=== PATIENT | female | born 1975 | race Caucasian/White ===

== ENCOUNTER 2020-01-07 20:16 | Emergency (ER) | payer MEDICARE, OTHER ==
[2020-01-07 20:24] VITALS: TEMP 98.3
[2020-01-07] MEDS ORDERED: SULFAMETH-TMP DS STARTER PACK 2 TAB BTL PO STA (20:50)
[2020-01-07] MEDS ORDERED: IBUPROFEN 600 MG STARTER PACK 4 TAB BTL PO STA (20:50)
[2020-01-07] MEDS ORDERED: LIDOCAINE 1% INJ 10MG/ML (20 ML MDV) SQ ONE (20:50)
[2020-01-07] MEDS ORDERED: ACET/COD 300 MG/30 MG STARTER PACK 6 TAB BTL PO STA (20:50)
--- NOTE | 2020-01-07 21:09 | ED ---
Skin/Abscess/FB HPI - General Chief complaint: Skin/Abscess/Foreign Body Stated complaint: Abscess Time Seen by Provider: 01/07/20 20:34 Source: patient Mode of arrival: ambulatory Limitations: no limitations - History of Present Illness Initial comments: 44-year-old female patient presents to the emergency department today for evaluation of possible abscess to the right upper thigh. Patient states that the area had become red, swollen, painful today. States it feels similar to when she had an abscess in the past. She denies any fever or chills. Denies any drainage from the site. She denies known history of MRSA. Patient denies any recent rash, cough, shortness of breath, chest pain, abdominal pain, nausea, vomiting, diarrhea, constipation, back pain, numbness, tingling, dizziness, weakness, hematuria, dysuria, urinary urgency, urinary frequency, headache, visual changes, or any other complaints. - Related Data Home Medications Medication Instructions Recorded Confirmed ARIPiprazole [Abilify] 15 mg PO DAILY 11/29/17 11/29/17 Citalopram Hydrobromide [CeleXA] 20 mg PO DAILY 11/29/17 11/29/17 Lurasidone [Latuda] 40 mg PO HS 11/29/17 11/29/17 clonazePAM [KlonoPIN] 1 mg PO QID 11/29/17 11/29/17 Previous Rx's Medication Instructions Recorded Ibuprofen [Motrin] 600 mg PO Q8HR PRN #30 tab 01/07/20 Sulfamethoxazole/Trimethoprim 1 each PO BID #20 tablet 01/07/20 [Bactrim DS 800-160 mg] Allergies Allergy/AdvReac Type Severity Reaction Status Date / Time No Known Allergies Allergy Verified 01/07/20 20:24 Review of Systems ROS Statement: Those systems with pertinent positive or pertinent negative responses have been documented in the HPI. ROS Other: All systems not noted in ROS Statement are negative. Past Medical History Past Medical History: No Reported History History of Any Multi-Drug Resistant Organisms: None Reported Past Surgical History: Section, Hysterectomy Additional Past Surgical History / Comment(s): Fatty tumor removal Past Psychological History: Anxiety, Bipolar, Depression Smoking Status: Current every day smoker Past Alcohol Use History: None Reported Past Drug Use History: None Reported General Exam Limitations: no limitations General appearance: alert, in no apparent distress, other (This is a well- developed, well-nourished adult female patient in no acute distress. Vital signs upon presentation are temperature 98.3F, pulse 78, respirations 18, blood pressure 162/90, pulse ox 100% on room air.) Eye exam: Present: normal appearance, PERRL, EOMI. Absent: scleral icterus, conjunctival injection, periorbital swelling ENT exam: Present: normal exam, normal oropharynx, mucous membranes moist Respiratory exam: Present: normal lung sounds bilaterally. Absent: respiratory distress, wheezes, rales, rhonchi, stridor Cardiovascular Exam: Present: regular rate, normal rhythm, normal heart sounds. Absent: systolic murmur, diastolic murmur, rubs, gallop, clicks Extremities exam: Present: full ROM, normal capillary refill, other (There is 2cm abscess to the right medial upper thigh. No surrounding erythema. No drainage. No induration. Abscess is fluctuant. ). Absent: normal inspection, tenderness, pedal edema, joint swelling, calf tenderness Neurological exam: Present: alert, oriented X3, CN II-XII intact Psychiatric exam: Present: normal affect, normal mood Skin exam: Present: warm, dry, intact, normal color. Absent: rash Course Vital Signs 01/07/20 01/07/20 01/07/20 20:21 21:53 22:00 Temperature 98.3 F 98.3 F Pulse Rate 78 87 74 Respiratory 18 20 18 Rate Blood Pressure 162/90 134/93 134/93 O2 Sat by Pulse 100 97 100 Oximetry Procedures - Incision & Drainage Consent Obtained: verbal consent Indication: Abscess Site: lower extremity Size (cm): 2 Anesthetic Used: lidocaine 1% Amount (mLs): 10 I&D Cleaning Method: Betadine Scalpel Used: #11 Needle Aspiration Performed?: No Irrigation Performed?: No I&D Drainage Obtained: Pus, Blood Culture Obtained?: Yes Patient Tolerated Procedure: well, no complications Medical Decision Making - Medical Decision Making 44-year-old female patient presented to the emergency department today for evaluation of abscess to the right upper inner thigh. Physical examination did reveal 2 cm abscess no surrounding erythema. Area was fluctuant so I did proceed with incision and drainage. There was output of pus and blood. A culture was obtained. She was started on Bactrim. She'll be discharged with instructions to apply warm compresses 20 minutes at a time at least 3-4 times daily. She is instructed to follow-up with her primary care physician for recheck of the area in 1-2 days. Return parameters were discussed in detail. She verbalizes understanding and agrees with this plan. Disposition Clinical Impression: Abscess of right thigh Disposition: HOME SELF-CARE Condition: Good Instructions (If sedation given, give patient instructions): Abscess Incision and Drainage (ED), Abscess (ED) Additional Instructions: Apply warm compresses to the abscess 2-3 times daily for at least 20 minutes, or soak in a hot bathtub for this time. Complete antibiotic prescription in full. Take medication as needed for pain control. Follow-up with your primary care physician for recheck of the wound in 1-2 days. Return to the emergency department immediately for any other new, worsening, or concerning symptoms. Prescriptions: Sulfamethoxazole/Trimethoprim [Bactrim DS 800-160 mg] 1 each PO BID #20 tablet Ibuprofen [Motrin] 600 mg PO Q8HR PRN #30 tab PRN Reason: Pain Is patient prescribed a controlled substance at d/c from ED?: No Referrals: Marlon Almanza MD [Primary Care Provider] - 1-2 days Time of Disposition: 21:49
[2020-01-07 22:00] VITALS: BP 134/93; PULSE 74; RESP 18
== END 2020-01-07 22:00 | disposition home or self-care (01) ==
LOC: EC 20:16
DX: L02.415 Cutaneous abscess of right lower limb (principal); F41.9 Anxiety disorder, unspecified; F32.9 Major depressive disorder, single episode, unspecified; F17.200 Nicotine dependence, unspecified, uncomplicated; Z79.899 Other long term (current) drug therapy
CPT/HCPCS: 87070; 87205; 99283; 10060; J2001

== ENCOUNTER 2021-01-15 22:03 | Emergency (ER) | payer MEDICARE, OTHER ==
[2021-01-15] MEDS ORDERED: SODIUM CHLORIDE 0.9% 1,000 ML IV STA (22:09)
[2021-01-15 22:42] LABS: Basophils # (A) 0.1 k/uL (0-0.2); Basophils % (A) 1 %; Eosinophils # (A) 0.3 k/uL (0-0.7); Eosinophils % (A) 3 %; HCT 42.8 % (34.0-46.0); HGB 13.9 gm/dL (11.4-16.0); Lymphocytes # (A) 3.6 k/uL (1.0-4.8); Lymphocytes % (A) 34 %; MCH 31.4 pg (25.0-35.0); MCHC 32.4 g/dL (31.0-37.0); MCV 96.9 fL (80.0-100.0); Mean Platelet Volume 8.4; Monocytes # (A) 0.6 k/uL (0-1.0); Monocytes % (A) 5 %; Neutrophils # (A) 5.9 k/uL (1.3-7.7); Neutrophils % (A) 55 %; Platelet Count 272 k/uL (150-450); RBC 4.42 m/uL (3.80-5.40); RDW 13.6 % (11.5-15.5); WBC 10.6 k/uL (3.8-10.6)
[2021-01-15 23:00] LABS: ALT 53 U/L (4-34); AST 35 U/L (14-36); African American GFR (CKD) >90 (>60 ml/min/1.73 sqM); Albumin 4.4 g/dL (3.5-5.0); Alkaline Phosphatase 110 U/L (38-126); Amylase 73 U/L (30-110); Anion Gap 9 mmol/L; Blood Urea Nitrogen 13 mg/dL (7-17); Calcium 9.6 mg/dL (8.4-10.2); Carbon Dioxide 28 mmol/L (22-30); Chloride 102 mmol/L (98-107); Creatine Kinase 63 U/L (30-135); Glucose 102 mg/dL (74-99); Lipase 385 U/L (23-300); Non-African American GFR(CKD) >90 (>60 ml/min/1.73 sqM); Potassium 4.3 mmol/L (3.5-5.1); Sodium 139 mmol/L (137-145); Total Bilirubin 0.3 mg/dL (0.2-1.3); Total Protein 7.2 g/dL (6.3-8.2)
--- NOTE | 2021-01-15 23:12 | ED ---
Abdominal Pain HPI - General Chief Complaint: Abdominal Pain Stated Complaint: Pelvic Pain Time Seen by Provider: 01/15/21 22:09 Source: patient, RN notes reviewed, old records reviewed Mode of arrival: ambulatory Limitations: no limitations - History of Present Illness Initial Comments: This is a 45-year-old female she presents today to evaluate for abdominal pain. Patient has had abdominal pain episodic for about a week off worsening. Patient has been treated for urinary tract infection with no help she states that she may have urinary tract infection but has had before this is worse. She has had nausea no vomiting no fevers. No bowel issues MD Complaint: abdominal pain, flank pain (Left-sided) -: week(s) Location: epigastric, suprapubic, bilateral flank Radiation: bilateral flank Migration to: suprapubic Severity: moderate Severity scale (1-10): 6 Quality: stabbing Consistency: constant Improves With: nothing Worsens With: nothing Context: other (none) Associated Symptoms: nausea - Related Data Home Medications Medication Instructions Recorded Confirmed ARIPiprazole [Abilify] 15 mg PO DAILY 11/29/17 11/29/17 Citalopram Hydrobromide [CeleXA] 20 mg PO DAILY 11/29/17 11/29/17 Lurasidone [Latuda] 40 mg PO HS 11/29/17 11/29/17 clonazePAM [KlonoPIN] 1 mg PO QID 11/29/17 11/29/17 Previous Rx's Medication Instructions Recorded Ibuprofen [Motrin] 600 mg PO Q8HR PRN #30 tab 01/07/20 Sulfamethoxazole/Trimethoprim 1 each PO BID #20 tablet 01/07/20 [Bactrim DS 800-160 mg] Cephalexin [Keflex] 500 mg PO Q6H #28 cap 01/17/21 Ibuprofen [Motrin] 600 mg PO Q8HR PRN #30 tab 01/17/21 Ondansetron [Zofran ODT] 4 mg PO Q8HR PRN #10 tab 01/17/21 Allergies Allergy/AdvReac Type Severity Reaction Status Date / Time No Known Allergies Allergy Verified 01/17/21 20:05 Review of Systems ROS Statement: Those systems with pertinent positive or pertinent negative responses have been documented in the HPI. ROS Other: All systems not noted in ROS Statement are negative. Past Medical History Past Medical History: No Reported History History of Any Multi-Drug Resistant Organisms: None Reported Past Surgical History: Section, Hysterectomy Additional Past Surgical History / Comment(s): Fatty tumor removal Past Psychological History: Anxiety, Bipolar, Depression Smoking Status: Current every day smoker Past Alcohol Use History: None Reported Past Drug Use History: None Reported General Exam Limitations: no limitations General appearance: alert, in no apparent distress, anxious Head exam: Present: atraumatic, normocephalic, normal inspection Eye exam: Present: normal appearance, PERRL, EOMI. Absent: scleral icterus, conjunctival injection, periorbital swelling ENT exam: Present: normal exam, mucous membranes moist Neck exam: Present: normal inspection. Absent: tenderness, meningismus, lymphadenopathy Respiratory exam: Present: normal lung sounds bilaterally. Absent: respiratory distress, wheezes, rales, rhonchi, stridor Cardiovascular Exam: Present: normal rhythm, tachycardia, normal heart sounds. Absent: systolic murmur, diastolic murmur, rubs, gallop, clicks GI/Abdominal exam: Present: soft, normal bowel sounds. Absent: distended, tenderness, guarding, rebound, rigid Extremities exam: Present: normal inspection, full ROM, normal capillary refill. Absent: tenderness, pedal edema, joint swelling, calf tenderness Back exam: Present: normal inspection Neurological exam: Present: alert, oriented X3, CN II-XII intact Psychiatric exam: Present: normal affect, normal mood Skin exam: Present: warm, dry, intact, normal color. Absent: rash Course Vital Signs 01/15/21 01/16/21 01/16/21 22:04 00:35 01:26 Temperature 98.1 F 97.9 F Pulse Rate 109 H 87 86 Respiratory 20 20 18 Rate Blood Pressure 134/84 133/99 138/89 O2 Sat by Pulse 96 97 97 Oximetry - Reevaluation(s) Reevaluation #1: Medical record is reviewed Patient symptoms are significantly improved here in the ER Patient informed of results and questions are answered Medical Decision Making - Medical Decision Making Auty 5 female DF for evaluation patient does have a stone, no infection. Patient will be treated for kidney stone can be discharged home - Lab Data Result diagrams: 01/15/21 22:27 01/15/21 22:27 Lab Results 01/15/21 01/15/21 01/15/21 Range/Units 22:27 22:27 22:27 WBC 10.6 (3.8-10.6) k/uL RBC 4.42 (3.80-5.40) m/uL Hgb 13.9 (11.4-16.0) gm/dL Hct 42.8 (34.0-46.0) % MCV 96.9 (80.0-100.0) fL MCH 31.4 (25.0-35.0) pg MCHC 32.4 (31.0-37.0) g/dL RDW 13.6 (11.5-15.5) % Plt Count 272 (150-450) k/uL MPV 8.4 Neutrophils % 55 % Lymphocytes % 34 % Monocytes % 5 % Eosinophils % 3 % Basophils % 1 % Neutrophils # 5.9 (1.3-7.7) k/uL Lymphocytes # 3.6 (1.0-4.8) k/uL Monocytes # 0.6 (0-1.0) k/uL Eosinophils # 0.3 (0-0.7) k/uL Basophils # 0.1 (0-0.2) k/uL Sodium 139 (137-145) mmol/L Potassium 4.3 (3.5-5.1) mmol/L Chloride 102 (98-107) mmol/L Carbon Dioxide 28 (22-30) mmol/L Anion Gap 9 mmol/L BUN 13 (7-17) mg/dL Creatinine 0.67 (0.52-1.04) mg/dL Est GFR (CKD-EPI)AfAm >90 (>60 ml/min/1.73 sqM) Est GFR (CKD-EPI)NonAf >90 (>60 ml/min/1.73 sqM) Glucose 102 H (74-99) mg/dL Plasma Lactic Acid Jeremy (0.7-2.0) mmol/L Calcium 9.6 (8.4-10.2) mg/dL Total Bilirubin 0.3 (0.2-1.3) mg/dL AST 35 (14-36) U/L ALT 53 H (4-34) U/L Alkaline Phosphatase 110 (38-126) U/L Creatine Kinase 63 (30-135) U/L Total Protein 7.2 (6.3-8.2) g/dL Albumin 4.4 (3.5-5.0) g/dL Amylase 73 (30-110) U/L Lipase 385 H (23-300) U/L Urine Color Yellow Urine Appearance Cloudy H (Clear) Urine pH 5.5 (5.0-8.0) Ur Specific [place] 1.018 (1.001-1.035) Urine Protein Negative (Negative) Urine Glucose (UA) Negative (Negative) Urine Ketones Negative (Negative) Urine Blood Negative (Negative) Urine Nitrite Negative (Negative) Urine Bilirubin Negative (Negative) Urine Urobilinogen <2.0 (<2.0) mg/dL Ur Leukocyte Esterase Negative (Negative) Urine RBC 5 (0-5) /hpf Urine WBC 14 H (0-5) /hpf Ur Squamous Epith Cells 1 (0-4) /hpf Urine Bacteria Many H (None) /hpf Urine Mucus Rare H (None) /hpf 01/15/21 Range/Units 22:27 WBC (3.8-10.6) k/uL RBC (3.80-5.40) m/uL Hgb (11.4-16.0) gm/dL Hct (34.0-46.0) % MCV (80.0-100.0) fL MCH (25.0-35.0) pg MCHC (31.0-37.0) g/dL RDW (11.5-15.5) % Plt Count (150-450) k/uL MPV Neutrophils % % Lymphocytes % % Monocytes % % Eosinophils % % Basophils % % Neutrophils # (1.3-7.7) k/uL Lymphocytes # (1.0-4.8) k/uL Monocytes # (0-1.0) k/uL Eosinophils # (0-0.7) k/uL Basophils # (0-0.2) k/uL Sodium (137-145) mmol/L Potassium (3.5-5.1) mmol/L Chloride (98-107) mmol/L Carbon Dioxide (22-30) mmol/L Anion Gap mmol/L BUN (7-17) mg/dL Creatinine (0.52-1.04) mg/dL Est GFR (CKD-EPI)AfAm (>60 ml/min/1.73 sqM) Est GFR (CKD-EPI)NonAf (>60 ml/min/1.73 sqM) Glucose (74-99) mg/dL Plasma Lactic Acid Jeremy 1.6 (0.7-2.0) mmol/L Calcium (8.4-10.2) mg/dL Total Bilirubin (0.2-1.3) mg/dL AST (14-36) U/L ALT (4-34) U/L Alkaline Phosphatase (38-126) U/L Creatine Kinase (30-135) U/L Total Protein (6.3-8.2) g/dL Albumin (3.5-5.0) g/dL Amylase (30-110) U/L Lipase (23-300) U/L Urine Color Urine Appearance (Clear) Urine pH (5.0-8.0) Ur Specific [place] (1.001-1.035) Urine Protein (Negative) Urine Glucose (UA) (Negative) Urine Ketones (Negative) Urine Blood (Negative) Urine Nitrite (Negative) Urine Bilirubin (Negative) Urine Urobilinogen (<2.0) mg/dL Ur Leukocyte Esterase (Negative) Urine RBC (0-5) /hpf Urine WBC (0-5) /hpf Ur Squamous Epith Cells (0-4) /hpf Urine Bacteria (None) /hpf Urine Mucus (None) /hpf - Radiology Data Radiology results: report reviewed (CT head and pelvis does show kidney stone), image reviewed Disposition Clinical Impression: Abdominal pain, Right ureteral stone Disposition: HOME SELF-CARE Condition: Good Instructions (If sedation given, give patient instructions): Kidney Stones (ED) Is patient prescribed a controlled substance at d/c from ED?: No Referrals: Marlon Almanza MD [Primary Care Provider] - 1-2 days
[2021-01-15 23:30] LABS: Appearance,Urine Cloudy (Clear); Bacteria,Urine Many /hpf; Bilirubin,Urine Negative (Negative); Blood,Urine Negative (Negative); Color,Urine Yellow; Glucose,Urine (UA) Negative (Negative); Ketones,Urine Negative (Negative); Leukocyte Esterase,Urine Negative (Negative); Mucus,Urine Rare /hpf; Nitrite,Urine Negative (Negative); PH, Urine 5.5 (5.0-8.0); Protein,Urine Negative (Negative); RBC,Urine 5 /hpf (0-5); Specific Gravity,Urine 1.018 (1.001-1.035); Squamous Epithelial Cell,Urine 1 /hpf (0-4); Urobilinogen,Urine <2.0 mg/dL (<2.0); WBC,Urine 14 /hpf (0-5)
--- NOTE | 2021-01-15 23:51 | CT ---
EXAMINATION TYPE: CT abdomen pelvis w con DATE OF EXAM: 01/15/2021 COMPARISON: None HISTORY: supra pubic pain CT DLP: 1286 mGycm Automated exposure control for dose reduction was used. CONTRAST: Performed with IV Contrast, patient injected with 100 mL of Isovue 300. Images obtained from the diaphragm to the floor the pelvis with IV contrast. Lung bases are clear. There is no pleural effusion. Heart size is normal. There is no pericardial eff usion. Liver spleen stomach pancreas gallbladder appear intact. The bile ducts are not dilated. There is no adrenal mass. Kidneys show satisfactory contrast opacification. There is mild left-sided hydronephros is. There is delayed left side pyelogram compared to the right. There is 5 mm obstructing calculus in the distal left ureter close to the ureterovesical junction. Bladder is almost empty. There is no in guinal hernia. There is no free fluid in the pelvis. There is no pelvic mass. There is no mesenteric edema. There is no ascites or free air. There is no bowel obstruction. Appendi x not definitely seen. No sign of thickened appendix. There is 2 x 1 cm fat-containing umbilical terese ia. The lumbar vertebra have normal alignment. There is no compression fracture. Posterior elements a ppear intact. The bony pelvis is intact. The hip joints are intact. IMPRESSION: Obstructing calculus in the distal left ureter at the ureterovesical junction with partial obstructio n of the left upper collecting system. No other renal calculus seen.
[2021-01-16] MEDS ORDERED: MORPHINE SULFATE 4 MG/ML SYRINGE IVP STA (00:04)
[2021-01-16] MEDS ORDERED: SODIUM CHLORIDE 0.9% 1,000 ML IV STA ×2 (00:04→00:05)
[2021-01-16] MEDS ORDERED: IBUPROFEN 600 MG STARTER PACK 4 TAB BTL PO STA (00:05)
[2021-01-16] MEDS ORDERED: KETOROLAC 15 MG/ML 1 ML VIAL IVP STA (00:05)
[2021-01-16] MEDS ORDERED: ACET/COD 300 MG/30 MG STARTER PACK 6 TAB BTL PO STA (00:05)
[2021-01-16] MEDS ORDERED: TAMSULOSIN 0.4 MG CAP.ER.24H PO STA (00:06)
[2021-01-16 01:28] VITALS: BP 138/89; PULSE 86; RESP 18; TEMP 97.9
== END 2021-01-16 01:27 | disposition home or self-care (01) ==
LOC: EC 22:03
DX: N13.2 Hydronephrosis with renal and ureteral calculous obstruction (principal); F41.9 Anxiety disorder, unspecified; F32.9 Major depressive disorder, single episode, unspecified; F17.200 Nicotine dependence, unspecified, uncomplicated; Z79.1 Long term (current) use of non-steroidal anti-inflammatories (NSAID); Z79.899 Other long term (current) drug therapy
CPT/HCPCS: 36415; 80053; 82150; 82550; 83605; 83690; 85025; 81001; 87086; 74177; 99284; 96365; 96375 ×2; 96361 ×2; J2270; J0696; J1885; Q9967

== ENCOUNTER 2021-01-17 19:55 | Emergency (ER) | payer MEDICARE, OTHER ==
[2021-01-17] MEDS ORDERED: HYDROmorphone 0.5 MG/0.5 ML SYRINGE IVP STA (20:14)
[2021-01-17] MEDS ORDERED: ONDANSETRON 4 MG/2 ML VIAL IVP STA (20:14)
[2021-01-17] MEDS ORDERED: KETOROLAC 15 MG/ML 1 ML VIAL IVP STA (20:14)
--- NOTE | 2021-01-17 20:18 | ED ---
General Adult HPI - General Chief complaint: Urogenital Stated complaint: revisit - kidney stones Time Seen by Provider: 01/17/21 20:06 Source: patient Mode of arrival: ambulatory Limitations: no limitations - History of Present Illness Initial comments: 45 year-old female patient presents to the emergency department today for evaluation of suprapubic abdominal pain and urinary retention. States that she was diagnosed with a left sided kidney stone 3 days ago. States that today she started having increased pain to her suprapubic region and has not urinated since 9am. States she does feel the urge to go, but nothing comes out. She denies any fever or chills. Did have one episode of vomiting today. States she has been drinking but has no appetite. Denies history of kidney stones prior to this. Has not yet seen urology. Patient denies any recent rash, cough, shortness of breath, chest pain, diarrhea, constipation, back pain, numbness, tingling, dizziness, weakness, headache, visual changes, or any other complaints. - Related Data Home Medications Medication Instructions Recorded Confirmed ARIPiprazole [Abilify] 15 mg PO DAILY 11/29/17 11/29/17 Citalopram Hydrobromide [CeleXA] 20 mg PO DAILY 11/29/17 11/29/17 Lurasidone [Latuda] 40 mg PO HS 11/29/17 11/29/17 clonazePAM [KlonoPIN] 1 mg PO QID 11/29/17 11/29/17 Previous Rx's Medication Instructions Recorded Ibuprofen [Motrin] 600 mg PO Q8HR PRN #30 tab 01/07/20 Sulfamethoxazole/Trimethoprim 1 each PO BID #20 tablet 01/07/20 [Bactrim DS 800-160 mg] Cephalexin [Keflex] 500 mg PO Q6H #28 cap 01/17/21 Ibuprofen [Motrin] 600 mg PO Q8HR PRN #30 tab 01/17/21 Ondansetron [Zofran ODT] 4 mg PO Q8HR PRN #10 tab 01/17/21 Allergies Allergy/AdvReac Type Severity Reaction Status Date / Time No Known Allergies Allergy Verified 01/17/21 20:05 Review of Systems ROS Statement: Those systems with pertinent positive or pertinent negative responses have been documented in the HPI. ROS Other: All systems not noted in ROS Statement are negative. Past Medical History Past Medical History: No Reported History Additional Past Medical History / Comment(s): renal stones, History of Any Multi-Drug Resistant Organisms: None Reported Past Surgical History: Section, Hysterectomy Additional Past Surgical History / Comment(s): Fatty tumor removal, Past Psychological History: Anxiety, Bipolar, Depression Smoking Status: Current every day smoker Past Alcohol Use History: None Reported Past Drug Use History: Marijuana General Exam Limitations: no limitations General appearance: alert, in no apparent distress, other (This is a well developed, well nourished adult female patient in no acute distress. Vital signs upon presentation are temperature 98.6F, pulse 94, respirations 17, blood pressure 172/95, pulse ox 99% on room air.) ENT exam: Present: normal exam, normal oropharynx, mucous membranes moist Respiratory exam: Present: normal lung sounds bilaterally. Absent: respiratory distress, wheezes, rales, rhonchi, stridor Cardiovascular Exam: Present: regular rate, normal rhythm, normal heart sounds. Absent: systolic murmur, diastolic murmur, rubs, gallop, clicks GI/Abdominal exam: Present: soft, tenderness (suprapubic), normal bowel sounds. Absent: distended, guarding, rebound, rigid Neurological exam: Present: alert, oriented X3, CN II-XII intact Psychiatric exam: Present: normal affect, normal mood Skin exam: Present: warm, dry, intact, normal color. Absent: rash Course Vital Signs 01/17/21 20:02 Temperature 98.6 F Pulse Rate 94 Respiratory 17 Rate Blood Pressure 172/95 O2 Sat by Pulse 99 Oximetry Medical Decision Making - Medical Decision Making 45 year-old female patient presents to the emergency department today for evaluation of urinary retention and suprapubic pain. She was diagnosed with kidney stone 3 days ago. Physical examination did reveal some suprapubic t enderness. She is afebrile, vital signs. Labs reviewed and were unremarkable. Urine did show increased bacteria. She was given IV fluids, pain medication, and antiemetics. Upon re-evaluation she is feeling better. She will be discharged home with antibiotics, pain medication, nausea medication. She is instructed to call urologist for an appointment on Tuesday. Return parameters were discussed i n detail. She verbalizes understanding and agrees with this plan. Case discussed with my attending Dr. Tang. - Lab Data Result diagrams: 01/17/21 20:28 01/17/21 20:28 Lab Results 01/17/21 01/17/21 01/17/21 Range/Units 20:28 20:28 20:28 WBC 9.7 (3.8-10.6) k/uL RBC 4.04 (3.80-5.40) m/uL Hgb 13.3 (11.4-16.0) gm/dL Hct 38.7 (34.0-46.0) % MCV 95.8 (80.0-100.0) fL MCH 32.9 (25.0-35.0) pg MCHC 34.3 (31.0-37.0) g/dL RDW 13.1 (11.5-15.5) % Plt Count 252 (150-450) k/uL MPV 8.1 Neutrophils % 57 % Lymphocytes % 33 % Monocytes % 6 % Eosinophils % 2 % Basophils % 1 % Neutrophils # 5.5 (1.3-7.7) k/uL Lymphocytes # 3.1 (1.0-4.8) k/uL Monocytes # 0.6 (0-1.0) k/uL Eosinophils # 0.2 (0-0.7) k/uL Basophils # 0.1 (0-0.2) k/uL Sodium 138 (137-145) mmol/L Potassium 4.2 (3.5-5.1) mmol/L Chloride 106 (98-107) mmol/L Carbon Dioxide 26 (22-30) mmol/L Anion Gap 6 mmol/L BUN 13 (7-17) mg/dL Creatinine 0.71 (0.52-1.04) mg/dL Est GFR (CKD-EPI)AfAm >90 (>60 ml/min/1.73 sqM) Est GFR (CKD-EPI)NonAf >90 (>60 ml/min/1.73 sqM) Glucose 99 (74-99) mg/dL Plasma Lactic Acid Jeremy 1.4 (0.7-2.0) mmol/L Calcium 9.7 (8.4-10.2) mg/dL Total Bilirubin 0.3 (0.2-1.3) mg/dL AST 30 (14-36) U/L ALT 43 H (4-34) U/L Alkaline Phosphatase 99 (38-126) U/L Total Protein 7.0 (6.3-8.2) g/dL Albumin 4.2 (3.5-5.0) g/dL Lipase 85 (23-300) U/L Urine Color Urine Appearance (Clear) Urine pH (5.0-8.0) Ur Specific [place] (1.001-1.035) Urine Protein (Negative) Urine Glucose (UA) (Negative) Urine Ketones (Negative) Urine Blood (Negative) Urine Nitrite (Negative) Urine Bilirubin (Negative) Urine Urobilinogen (<2.0) mg/dL Ur Leukocyte Esterase (Negative) Urine WBC (0-5) /hpf Ur Squamous Epith Cells (0-4) /hpf Urine Bacteria (None) /hpf Urine Mucus (None) /hpf 01/17/21 Range/Units 20:48 WBC (3.8-10.6) k/uL RBC (3.80-5.40) m/uL Hgb (11.4-16.0) gm/dL Hct (34.0-46.0) % MCV (80.0-100.0) fL MCH (25.0-35.0) pg MCHC (31.0-37.0) g/dL RDW (11.5-15.5) % Plt Count (150-450) k/uL MPV Neutrophils % % Lymphocytes % % Monocytes % % Eosinophils % % Basophils % % Neutrophils # (1.3-7.7) k/uL Lymphocytes # (1.0-4.8) k/uL Monocytes # (0-1.0) k/uL Eosinophils # (0-0.7) k/uL Basophils # (0-0.2) k/uL Sodium (137-145) mmol/L Potassium (3.5-5.1) mmol/L Chloride (98-107) mmol/L Carbon Dioxide (22-30) mmol/L Anion Gap mmol/L BUN (7-17) mg/dL Creatinine (0.52-1.04) mg/dL Est GFR (CKD-EPI)AfAm (>60 ml/min/1.73 sqM) Est GFR (CKD-EPI)NonAf (>60 ml/min/1.73 sqM) Glucose (74-99) mg/dL Plasma Lactic Acid Jeremy (0.7-2.0) mmol/L Calcium (8.4-10.2) mg/dL Total Bilirubin (0.2-1.3) mg/dL AST (14-36) U/L ALT (4-34) U/L Alkaline Phosphatase (38-126) U/L Total Protein (6.3-8.2) g/dL Albumin (3.5-5.0) g/dL Lipase (23-300) U/L Urine Color Light Yellow Urine Appearance Turbid H (Clear) Urine pH 6.5 (5.0-8.0) Ur Specific [place] 1.013 (1.001-1.035) Urine Protein Negative (Negative) Urine Glucose (UA) Negative (Negative) Urine Ketones Negative (Negative) Urine Blood Negative (Negative) Urine Nitrite Negative (Negative) Urine Bilirubin Negative (Negative) Urine Urobilinogen <2.0 (<2.0) mg/dL Ur Leukocyte Esterase Negative (Negative) Urine WBC 4 (0-5) /hpf Ur Squamous Epith Cells 2 (0-4) /hpf Urine Bacteria Many H (None) /hpf Urine Mucus Rare H (None) /hpf - Radiology Data Radiology results: report reviewed, image reviewed KUB x-ray was obtained. Report was reviewed in its entirety. Impression by Dr. Osborne shows nonacute abdomen. Not clear if calculus distal present. Area was secured by gas and fecal material. Disposition Clinical Impression: Kidney stone Disposition: HOME SELF-CARE Condition: Good Instructions (If sedation given, give patient instructions): Kidney Stones (ED) Additional Instructions: Increase fluids. Take medications as directed. Call urology for appointment on Tuesday. Return for any new, worsening, or concerning symptoms. Prescriptions: Cephalexin [Keflex] 500 mg PO Q6H #28 cap Ibuprofen [Motrin] 600 mg PO Q8HR PRN #30 tab PRN Reason: Pain Ondansetron [Zofran ODT] 4 mg PO Q8HR PRN #10 tab PRN Reason: Nausea Is patient prescribed a controlled substance at d/c from ED?: No Referrals: Marlon Almanza MD [Primary Care Provider] - 1-2 days Yuriy Sotelo MD [STAFF PHYSICIAN] - 1-2 days Time of Disposition: 21:48
[2021-01-17 20:41] LABS: Basophils # (A) 0.1 k/uL (0-0.2); Basophils % (A) 1 %; Eosinophils # (A) 0.2 k/uL (0-0.7); Eosinophils % (A) 2 %; HCT 38.7 % (34.0-46.0); HGB 13.3 gm/dL (11.4-16.0); Lymphocytes # (A) 3.1 k/uL (1.0-4.8); Lymphocytes % (A) 33 %; MCH 32.9 pg (25.0-35.0); MCHC 34.3 g/dL (31.0-37.0); MCV 95.8 fL (80.0-100.0); Mean Platelet Volume 8.1; Monocytes # (A) 0.6 k/uL (0-1.0); Monocytes % (A) 6 %; Neutrophils # (A) 5.5 k/uL (1.3-7.7); Neutrophils % (A) 57 %; Platelet Count 252 k/uL (150-450); RBC 4.04 m/uL (3.80-5.40); RDW 13.1 % (11.5-15.5); WBC 9.7 k/uL (3.8-10.6)
--- NOTE | 2021-01-17 20:57 | XR ---
EXAMINATION TYPE: XR KUB DATE OF EXAM: 01/17/2021 COMPARISON: NONE HISTORY: Distal left ureteral stone TECHNIQUE: 2 views upright FINDINGS: There is no sign of intestinal obstruction or pneumoperitoneum. Fecal pattern is normal. Th ere are no calcifications over the kidneys. Lung bases are clear. There is no evidence of abdominal m ass. IMPRESSION: Nonacute abdomen.. There is a calculus in the distal left ureter on the recent CT scan of 01/15/2021 and it is not clear if the stone is still present. This area is obscured by gas and fecal m aterial.
[2021-01-17 21:17] LABS: ALT 43 U/L (4-34); AST 30 U/L (14-36); African American GFR (CKD) >90 (>60 ml/min/1.73 sqM); Albumin 4.2 g/dL (3.5-5.0); Alkaline Phosphatase 99 U/L (38-126); Anion Gap 6 mmol/L; Blood Urea Nitrogen 13 mg/dL (7-17); Calcium 9.7 mg/dL (8.4-10.2); Carbon Dioxide 26 mmol/L (22-30); Chloride 106 mmol/L (98-107); Glucose 99 mg/dL (74-99); Lipase 85 U/L (23-300); Non-African American GFR(CKD) >90 (>60 ml/min/1.73 sqM); Potassium 4.2 mmol/L (3.5-5.1); Sodium 138 mmol/L (137-145); Total Bilirubin 0.3 mg/dL (0.2-1.3)
[2021-01-17 21:19] LABS: Appearance,Urine Turbid (Clear); Bacteria,Urine Many /hpf; Bilirubin,Urine Negative (Negative); Blood,Urine Negative (Negative); Color,Urine Light Yellow; Glucose,Urine (UA) Negative (Negative); Ketones,Urine Negative (Negative); Leukocyte Esterase,Urine Negative (Negative); Mucus,Urine Rare /hpf; Nitrite,Urine Negative (Negative); PH, Urine 6.5 (5.0-8.0); Protein,Urine Negative (Negative); Specific Gravity,Urine 1.013 (1.001-1.035); Squamous Epithelial Cell,Urine 2 /hpf (0-4); Urobilinogen,Urine <2.0 mg/dL (<2.0); WBC,Urine 4 /hpf (0-5)
[2021-01-17] MEDS ORDERED: cefTRIAXone IN SWFI 1,000 MG/10 ML SYRINGE IVP STA (21:39)
[2021-01-17] MEDS ORDERED: ONDANSETRON 4 MG ODT STARTER PACK 2 TAB BTL PO STA (21:49)
[2021-01-17] MEDS ORDERED: ACET/COD 300 MG/30 MG STARTER PACK 6 TAB BTL PO STA (21:49)
[2021-01-17 22:06] VITALS: BP 139/72; PULSE 79; RESP 18; TEMP 98.4
== END 2021-01-17 22:06 | disposition home or self-care (01) ==
LOC: EC 19:55
DX: N20.2 Calculus of kidney with calculus of ureter (principal); F41.9 Anxiety disorder, unspecified; F32.9 Major depressive disorder, single episode, unspecified; F17.200 Nicotine dependence, unspecified, uncomplicated; F12.90 Cannabis use, unspecified, uncomplicated; Z79.899 Other long term (current) drug therapy
CPT/HCPCS: 51798; 36415; 80053; 83605; 83690; 85025; 81001; 74018; 99284; 96374; 96375 ×3; J2405; J0696; J1885; S0119; J1170

== ENCOUNTER → 2021-01-23 | Day surgery (SDC) | payer MEDICARE, OTHER ==
[2021-01-21 14:56] VITALS: BMI 31.8
--- NOTE | 2021-01-22 19:33 | P.GSHP ---
History of Present Illness H&P Date: 01/22/21 45 yo female recently identified witha large distal ureteral stone on the left causing obstruction with pain. She comes for a left ureteroscopy withlaser lithotripsy and possible stent. The risks complications and alternatives have been discussed. - Constitutional Constitutional: Denies chills, Denies fever - EENT Eyes: denies blurred vision, denies pain Ears, nose, mouth and throat: Denies headache, Denies sore throat - Cardiovascular Cardiovascular: Denies chest pain, Denies shortness of breath - Respiratory Respiratory: Denies cough, Denies 7 - Gastrointestinal Gastrointestinal: Denies abdominal pain, Denies diarrhea, Denies nausea, Denies vomiting - Genitourinary (Female) Genitourinary: Denies dysuria, Denies hematuria - Genitourinary (Male) Genitourinary: Denies dysuria, Denies hematuria - Musculoskeletal Musculoskeletal: Denies myalgias - Integumentary Integumentary: Denies pruritus, Denies rash - Neurological Neurological: Denies numbness, Denies weakness - Psychiatric Psychiatric: Denies anxiety, Denies depression - Endocrine Endocrine: Denies fatigue, Denies weight change Past Medical History Past Medical History: No Reported History Additional Past Medical History / Comment(s): renal stones, History of Any Multi-Drug Resistant Organisms: None Reported Past Surgical History: Section, Hysterectomy Additional Past Surgical History / Comment(s): Fatty tumor removed, Past Anesthesia/Blood Transfusion Reactions: No Reported Reaction Smoking Status: Current every day smoker - Past Family History Mother Family Medical History: No Reported History Medications and Allergies Home Medications Medication Instructions Recorded Confirmed Type Citalopram Hydrobromide [CeleXA] 20 mg PO DAILY 11/29/17 01/21/21 History clonazePAM [KlonoPIN] 1 mg PO QID 11/29/17 01/21/21 History Cephalexin [Keflex] 500 mg PO Q6H #28 cap 01/17/21 01/21/21 Rx Ibuprofen [Motrin] 600 mg PO Q8HR PRN #30 tab 01/17/21 01/21/21 Rx DULoxetine HCL [Cymbalta] 60 mg PO BID 01/21/21 01/21/21 History HYDROcodone/APAP 5-325MG [[place] 1 tab PO Q8H PRN 01/21/21 01/21/21 History 5-325] OLANZapine 7.5 mg PO DAILY 01/21/21 01/21/21 History Allergies Allergy/AdvReac Type Severity Reaction Status Date / Time No Known Allergies Allergy Verified 01/21/21 14:23 Surgical - Exam - General well developed, well nourished, no distress - Eyes PERRL - ENT no hearing loss - Neck trachea midline - Respiratory normal expansion, normal respiratory effort - Cardiovascular Rhythm: regular - Abdomen Abdomen: soft, tender - Integumentary no rash, no growths - Neurologic normal coordination, normal sensation - Musculoskeletal normal gait, normal posture - Psychiatric oriented to time, oriented to person, oriented to place, speech is normal, memory intact Results - Imaging CT scan - abdomen: report reviewed, image reviewed CT scan - pelvis: report reviewed, image reviewed Assessment and Plan Assessment: Impression: Left ureteral stone with obstruction Plan: Left ureteroscopy with laser lithotripsy and possible stent
[~2021-01-23] MED LIST: AMPICILLIN 1,000 MG in SODIUM CHLORIDE 0.9% 50 ML IVPB PRN; DEXAMETHASONE SOD PHOSPHATE 4 MG/ML 1 ML VIAL IV ONE; HYDROmorphone 0.5 MG/0.5 ML SYRINGE IVP PRN; IOHEXOL 350 MG/ML 50 ML in EMPTY BAG 1 BAG IRRIGATION ONE; LACTATED RINGERS 1,000 ML IV ONE; LACTATED RINGERS 1,000 ML IV SCH; LIDOCAINE 1% (10MG/ML) FOR IV START INTRADERMA PRN; LIDOCAINE 1% INJ 10MG/ML (20 ML MDV) ONE; MIDAZOLAM 2 MG/2 ML VIAL IV PRN; MIDAZOLAM 2 MG/2 ML VIAL ONE; ONDANSETRON 4 MG/2 ML VIAL IVP ONE; PROPOFOL 10 MG/ML 20 ML VIAL IV ONE; SUCCINYLCHOLINE CHLORIDE 100 MG/5 ML SYR IV ONE; fentaNYL (PF) 50 MCG/ML 2 ML AMP ONE
--- NOTE | 2021-01-23 13:19 | XR ---
EXAMINATION TYPE: XR KUB DATE OF EXAM: 01/23/2021 HISTORY: Pain Comparison: None.Single KUB is submitted for interpretation. Findings: Right renal calculi: None Visualized. Right ureteral calculi: None Visualized. Left renal calculi: None Visualized. Left ureteral calculi: 3 mm calculus noted left UVJ. Pelvic calcifications: None Visualized. Bowel gas pattern is unremarkable. No free air. No mass effects. IMPRESSION: 1. 3 mm calculus noted left UVJ.
[2021-01-23 13:35] VITALS: TEMP 97.4
--- NOTE | 2021-01-23 17:28 | P.OP ---
Date of Procedure: 01/23/21 Preoperative Diagnosis: Left ureteral calculus Postoperative Diagnosis: Same, passed Procedure(s) Performed: Cystoscopy, left retrograde pyelogram, left ureteroscopy Anesthesia: HAYLEE Surgeon: Isaiah Camacho Estimated Blood Loss (ml): 0 Pathology: none sent Condition: stable Disposition: PACU Indications for Procedure: The patient is 45. She presented with a left ureteral stone up. She had a computed tomography scan identifying a distal ureteral stone. A KUB in my office although interpreted as normal the stone was seen near the left ureterovesical junction. The patient states that she still having pain. The KUB today was not clear as to whether I could see the stone but because she is still having pain on do cystoscopy left retrograde pyelogram and procedures as indicated. Description of Procedure: Patient is brought to the operating suite. She is given a general endotracheal anesthesia. She's placed lithotomy position with sterile prep and drape. Cystoscopy Foroblique lens and 21-[place]imbabwe[place] sheath identifies a normal urethra. The bladder mucosa is unremarkable. The left ureteral orifice is somewhat edematous the right is normal. Within a cone-tipped catheter retrograde pyelograms performed. There is some irregularity of the intramural tunnel and ureter proximal to this up. I can't say for certain there is a filling defect. I therefore passed a 7-Zimbabwean mini ureteroscope into the intramural tunnel. There is edema and erythema or the stone was but no obvious stone is identified. I passed the ureteroscope all the way proximally to the UPJ I do a pullout ureteroscopy and there is no stone in the left ureter. The stone has passed. The bladder is drained and the patient is awakened and returned recovery room in good condition Impression: successful left retrograde pyelogram. Successful left ureteroscopy Spontaneous stone passage. Recommendations the patient will be discharged home upon recovery and found the office in one week.
[2021-01-23 18:46] VITALS: RESP 17
[2021-01-23 19:08] VITALS: BP 124/72; PULSE 69
--- NOTE | 2021-01-24 12:15 | FL ---
Fluoroscopy HISTORY: Retrograde pyelogram 9 seconds fluoroscopy time supplied to the referring clinician. 1 intraoperative C-arm images docume nt the procedure. See dictated report from urology.
== END | disposition home or self-care (01) ==
LOC: OR 12:56
PROVIDERS: ATTEND Urology
DX: N20.1 Calculus of ureter (principal); Z87.442 Personal history of urinary calculi; Z98.891 History of uterine scar from previous surgery; Z90.710 Acquired absence of both cervix and uterus; Z98.890 Other specified postprocedural states; Z79.899 Other long term (current) drug therapy; F17.210 Nicotine dependence, cigarettes, uncomplicated; Z97.2 Presence of dental prosthetic device (complete) (partial)
CPT/HCPCS: 74420; 74018; 52005; C1758; C1769; J2250; J1100; J2405; J2001; J3010; J0290; J0330; J2704; Q9967

== ENCOUNTER 2021-02-18 22:28 | Emergency (ER) | payer MEDICARE, OTHER ==
[2021-02-18 22:39] VITALS: RESP 18
--- NOTE | 2021-02-18 23:02 | ED ---
SOB HPI - General Chief Complaint: Extremity Problem,Nontraumatic Stated Complaint: swelling in feet & legs Time Seen by Provider: 02/18/21 22:44 Source: patient Mode of arrival: ambulatory Limitations: no limitations - Related Data Home Medications Medication Instructions Recorded Confirmed DULoxetine HCL [Cymbalta] 60 mg PO BID 01/21/21 02/18/21 OLANZapine 7.5 mg PO DAILY 01/21/21 02/18/21 Methylphenidate HCl 20 mg PO TID 02/18/21 02/18/21 clonazePAM 2 mg PO BID 02/18/21 02/18/21 estradioL [estradioL (Once Weekly) 1 patch TRANSDERM WE 02/18/21 02/18/21 0.1mg Patch] traZODone HCL 100 mg PO HS 02/18/21 02/18/21 Allergies Allergy/AdvReac Type Severity Reaction Status Date / Time No Known Allergies Allergy Verified 02/18/21 22:37 Review of Systems ROS Statement: Those systems with pertinent positive or pertinent negative responses have been documented in the HPI. ROS Other: All systems not noted in ROS Statement are negative. Past Medical History Past Medical History: No Reported History Additional Past Medical History / Comment(s): renal stones, History of Any Multi-Drug Resistant Organisms: None Reported Past Surgical History: Section, Hysterectomy Additional Past Surgical History / Comment(s): Fatty tumor removed, Past Anesthesia/Blood Transfusion Reactions: No Reported Reaction Past Psychological History: Anxiety, Bipolar, Depression Smoking Status: Current every day smoker Past Alcohol Use History: None Reported Past Drug Use History: None Reported - Past Family History Mother Family Medical History: No Reported History General Exam Limitations: no limitations Course Vital Signs 02/18/21 02/19/21 02/19/21 22:37 00:25 00:50 Temperature 97.7 F 97.4 F L Pulse Rate 107 H 93 86 Respiratory 18 18 Rate Blood Pressure 132/94 145/77 O2 Sat by Pulse 98 95 Oximetry Medical Decision Making - Lab Data Result diagrams: 02/18/21 22:51 02/18/21 22:51 Lab Results 02/18/21 02/18/21 02/18/21 Range/Units 22:51 22:51 22:51 WBC 11.7 H (3.8-10.6) k/uL RBC 3.84 (3.80-5.40) m/uL Hgb 12.9 (11.4-16.0) gm/dL Hct 36.7 (34.0-46.0) % MCV 95.4 (80.0-100.0) fL MCH 33.6 (25.0-35.0) pg MCHC 35.2 (31.0-37.0) g/dL RDW 13.1 (11.5-15.5) % Plt Count 215 (150-450) k/uL MPV 8.5 Neutrophils % 62 % Lymphocytes % 29 % Monocytes % 5 % Eosinophils % 3 % Basophils % 1 % Neutrophils # 7.2 (1.3-7.7) k/uL Lymphocytes # 3.3 (1.0-4.8) k/uL Monocytes # 0.6 (0-1.0) k/uL Eosinophils # 0.4 (0-0.7) k/uL Basophils # 0.1 (0-0.2) k/uL PT 9.8 (9.0-12.0) sec INR 0.9 (<1.2) APTT 23.3 (22.0-30.0) sec D-Dimer 0.40 (<0.60) mg/L FEU Sodium 136 L (137-145) mmol/L Potassium 3.9 (3.5-5.1) mmol/L Chloride 102 (98-107) mmol/L Carbon Dioxide 26 (22-30) mmol/L Anion Gap 8 mmol/L BUN 15 (7-17) mg/dL Creatinine 0.61 (0.52-1.04) mg/dL Est GFR (CKD-EPI)AfAm >90 (>60 ml/min/1.73 sqM) Est GFR (CKD-EPI)NonAf >90 (>60 ml/min/1.73 sqM) Glucose 146 H (74-99) mg/dL Plasma Lactic Acid Jeremy (0.7-2.0) mmol/L Calcium 8.9 (8.4-10.2) mg/dL Phosphorus 4.3 (2.5-4.5) mg/dL Magnesium 1.6 (1.6-2.3) mg/dL Total Bilirubin 0.3 (0.2-1.3) mg/dL AST 42 H (14-36) U/L ALT 50 H (4-34) U/L Alkaline Phosphatase 98 (38-126) U/L Creatine Kinase 68 (30-135) U/L Troponin I (0.000-0.034) ng/mL NT-Pro-B Natriuret Pep pg/mL Total Protein 6.0 L (6.3-8.2) g/dL Albumin 3.7 (3.5-5.0) g/dL Urine Color Urine Appearance (Clear) Urine pH (5.0-8.0) Ur Specific [place] (1.001-1.035) Urine Protein (Negative) Urine Glucose (UA) (Negative) Urine Ketones (Negative) Urine Blood (Negative) Urine Nitrite (Negative) Urine Bilirubin (Negative) Urine Urobilinogen (<2.0) mg/dL Ur Leukocyte Esterase (Negative) Urine RBC (0-5) /hpf Urine WBC (0-5) /hpf Ur Squamous Epith Cells (0-4) /hpf Urine Bacteria (None) /hpf Urine Mucus (None) /hpf 02/18/21 02/18/21 02/18/21 Range/Units 22:51 22:51 22:51 WBC (3.8-10.6) k/uL RBC (3.80-5.40) m/uL Hgb (11.4-16.0) gm/dL Hct (34.0-46.0) % MCV (80.0-100.0) fL MCH (25.0-35.0) pg MCHC (31.0-37.0) g/dL RDW (11.5-15.5) % Plt Count (150-450) k/uL MPV Neutrophils % % Lymphocytes % % Monocytes % % Eosinophils % % Basophils % % Neutrophils # (1.3-7.7) k/uL Lymphocytes # (1.0-4.8) k/uL Monocytes # (0-1.0) k/uL Eosinophils # (0-0.7) k/uL Basophils # (0-0.2) k/uL PT (9.0-12.0) sec INR (<1.2) APTT (22.0-30.0) sec D-Dimer (<0.60) mg/L FEU Sodium (137-145) mmol/L Potassium (3.5-5.1) mmol/L Chloride (98-107) mmol/L Carbon Dioxide (22-30) mmol/L Anion Gap mmol/L BUN (7-17) mg/dL Creatinine (0.52-1.04) mg/dL Est GFR (CKD-EPI)AfAm (>60 ml/min/1.73 sqM) Est GFR (CKD-EPI)NonAf (>60 ml/min/1.73 sqM) Glucose (74-99) mg/dL Plasma Lactic Acid Jeremy 2.7 H* (0.7-2.0) mmol/L Calcium (8.4-10.2) mg/dL Phosphorus (2.5-4.5) mg/dL Magnesium (1.6-2.3) mg/dL Total Bilirubin (0.2-1.3) mg/dL AST (14-36) U/L ALT (4-34) U/L Alkaline Phosphatase (38-126) U/L Creatine Kinase (30-135) U/L Troponin I <0.012 (0.000-0.034) ng/mL NT-Pro-B Natriuret Pep 70 pg/mL Total Protein (6.3-8.2) g/dL Albumin (3.5-5.0) g/dL Urine Color Urine Appearance (Clear) Urine pH (5.0-8.0) Ur Specific [place] (1.001-1.035) Urine Protein (Negative) Urine Glucose (UA) (Negative) Urine Ketones (Negative) Urine Blood (Negative) Urine Nitrite (Negative) Urine Bilirubin (Negative) Urine Urobilinogen (<2.0) mg/dL Ur Leukocyte Esterase (Negative) Urine RBC (0-5) /hpf Urine WBC (0-5) /hpf Ur Squamous Epith Cells (0-4) /hpf Urine Bacteria (None) /hpf Urine Mucus (None) /hpf 02/18/21 Range/Units 23:51 WBC (3.8-10.6) k/uL RBC (3.80-5.40) m/uL Hgb (11.4-16.0) gm/dL Hct (34.0-46.0) % MCV (80.0-100.0) fL MCH (25.0-35.0) pg MCHC (31.0-37.0) g/dL RDW (11.5-15.5) % Plt Count (150-450) k/uL MPV Neutrophils % % Lymphocytes % % Monocytes % % Eosinophils % % Basophils % % Neutrophils # (1.3-7.7) k/uL Lymphocytes # (1.0-4.8) k/uL Monocytes # (0-1.0) k/uL Eosinophils # (0-0.7) k/uL Basophils # (0-0.2) k/uL PT (9.0-12.0) sec INR (<1.2) APTT (22.0-30.0) sec D-Dimer (<0.60) mg/L FEU Sodium (137-145) mmol/L Potassium (3.5-5.1) mmol/L Chloride (98-107) mmol/L Carbon Dioxide (22-30) mmol/L Anion Gap mmol/L BUN (7-17) mg/dL Creatinine (0.52-1.04) mg/dL Est GFR (CKD-EPI)AfAm (>60 ml/min/1.73 sqM) Est GFR (CKD-EPI)NonAf (>60 ml/min/1.73 sqM) Glucose (74-99) mg/dL Plasma Lactic Acid Jeremy (0.7-2.0) mmol/L Calcium (8.4-10.2) mg/dL Phosphorus (2.5-4.5) mg/dL Magnesium (1.6-2.3) mg/dL Total Bilirubin (0.2-1.3) mg/dL AST (14-36) U/L ALT (4-34) U/L Alkaline Phosphatase (38-126) U/L Creatine Kinase (30-135) U/L Troponin I (0.000-0.034) ng/mL NT-Pro-B Natriuret Pep pg/mL Total Protein (6.3-8.2) g/dL Albumin (3.5-5.0) g/dL Urine Color Yellow Urine Appearance Cloudy H (Clear) Urine pH 6.5 (5.0-8.0) Ur Specific [place] 1.020 (1.001-1.035) Urine Protein Negative (Negative) Urine Glucose (UA) Negative (Negative) Urine Ketones Negative (Negative) Urine Blood Negative (Negative) Urine Nitrite Negative (Negative) Urine Bilirubin Negative (Negative) Urine Urobilinogen 2.0 (<2.0) mg/dL Ur Leukocyte Esterase Negative (Negative) Urine RBC 1 (0-5) /hpf Urine WBC 2 (0-5) /hpf Ur Squamous Epith Cells 2 (0-4) /hpf Urine Bacteria Occasional H (None) /hpf Urine Mucus Rare H (None) /hpf - EKG Data -: EKG Interpreted by Me (EKG is sinus rhythm 95 IN 114 QRS 88 QTc 454) Disposition Clinical Impression: Bilateral leg edema Disposition: HOME SELF-CARE Condition: Good Instructions (If sedation given, give patient instructions): Leg Edema (ED) Is patient prescribed a controlled substance at d/c from ED?: No Referrals: Marlon Almanza MD [Primary Care Provider] - 1-2 days
[2021-02-18] MEDS: SODIUM CHLORIDE 0.9% 1,000 ML IV STA (23:22)
[2021-02-18] MEDS ORDERED: HYDROmorphone 1 MG/ML 1 ML SYRINGE IVP PRN (23:27)
[2021-02-18 23:34] LABS: Basophils # (A) 0.1 k/uL (0-0.2); Basophils % (A) 1 %; Eosinophils # (A) 0.4 k/uL (0-0.7); Eosinophils % (A) 3 %; HCT 36.7 % (34.0-46.0); HGB 12.9 gm/dL (11.4-16.0); Lymphocytes # (A) 3.3 k/uL (1.0-4.8); Lymphocytes % (A) 29 %; MCH 33.6 pg (25.0-35.0); MCHC 35.2 g/dL (31.0-37.0); MCV 95.4 fL (80.0-100.0); Mean Platelet Volume 8.5; Monocytes # (A) 0.6 k/uL (0-1.0); Monocytes % (A) 5 %; Neutrophils # (A) 7.2 k/uL (1.3-7.7); Neutrophils % (A) 62 %; Platelet Count 215 k/uL (150-450); RBC 3.84 m/uL (3.80-5.40); RDW 13.1 % (11.5-15.5); WBC 11.7 k/uL (3.8-10.6)
[2021-02-18 23:42] LABS: ALT 50 U/L (4-34); AST 42 U/L (14-36); African American GFR (CKD) >90 (>60 ml/min/1.73 sqM); Albumin 3.7 g/dL (3.5-5.0); Alkaline Phosphatase 98 U/L (38-126); Anion Gap 8 mmol/L; Blood Urea Nitrogen 15 mg/dL (7-17); Calcium 8.9 mg/dL (8.4-10.2); Carbon Dioxide 26 mmol/L (22-30); Chloride 102 mmol/L (98-107); Creatine Kinase 68 U/L (30-135); Glucose 146 mg/dL (74-99); Magnesium 1.6 mg/dL (1.6-2.3); Non-African American GFR(CKD) >90 (>60 ml/min/1.73 sqM); Phosphorus 4.3 mg/dL (2.5-4.5); Potassium 3.9 mmol/L (3.5-5.1); Sodium 136 mmol/L (137-145); Total Bilirubin 0.3 mg/dL (0.2-1.3)
--- NOTE | 2021-02-18 23:47 | XR ---
EXAMINATION TYPE: XR chest 2V DATE OF EXAM: 02/18/2021 COMPARISON: NONE HISTORY: Weakness TECHNIQUE: 2 views FINDINGS: Heart and mediastinum are normal. Lungs are clear. Diaphragm is normal. Bony thorax is inta ct. There are chest leads. IMPRESSION: Normal chest.
[2021-02-18 23:51] LABS: D-Dimer 0.4 mg/L FEU (<0.60); INR 0.9 (<1.2); Partial Thromboplastin Time 23.3 sec (22.0-30.0); Prothrombin Time 9.8 sec (9.0-12.0)
[2021-02-19] MEDS: HYDROmorphone 1 MG/ML 1 ML SYRINGE IVP STA (00:12)
[2021-02-19 00:30] LABS: Appearance,Urine Cloudy (Clear); Bacteria,Urine Occasional /hpf; Bilirubin,Urine Negative (Negative); Blood,Urine Negative (Negative); Color,Urine Yellow; Glucose,Urine (UA) Negative (Negative); Ketones,Urine Negative (Negative); Leukocyte Esterase,Urine Negative (Negative); Mucus,Urine Rare /hpf; Nitrite,Urine Negative (Negative); PH, Urine 6.5 (5.0-8.0); Protein,Urine Negative (Negative); RBC,Urine 1 /hpf (0-5); Squamous Epithelial Cell,Urine 2 /hpf (0-4); WBC,Urine 2 /hpf (0-5)
[2021-02-19 00:32] VITALS: TEMP 97.4
[2021-02-19] MEDS: FUROSEMIDE 10 MG/ML 4 ML VIAL IV STA (00:41)
[2021-02-19] MEDS: IPRATROPIUM-ALBUTEROL 3 ML NEB INHALATION STA (00:49)
[2021-02-19 01:22] VITALS: BP 133/76; PULSE 102
== END 2021-02-19 01:12 | disposition home or self-care (01) ==
LOC: EC 22:28
DX: R60.0 Localized edema (principal); R06.02 Shortness of breath; F31.9 Bipolar disorder, unspecified; F41.9 Anxiety disorder, unspecified; F17.200 Nicotine dependence, unspecified, uncomplicated
CPT/HCPCS: 36415; 94640; 93005; 85379; 83880; 80053; 82550; 83605; 83735; 84100; 84484; 85025; 85610; 85730; 81001; 71046; 99285; 96374; 96375; 96361 ×2; J1940; J1170

== ENCOUNTER 2021-03-19 17:24 | Emergency (ER) | payer MEDICARE, OTHER ==
[2021-03-19 17:48] VITALS: BP 156/96; PULSE 107; RESP 16; TEMP 98.7
[2021-03-19] MEDS ORDERED: MORPHINE SULFATE 4 MG/ML SYRINGE IM STA (17:58)
--- NOTE | 2021-03-19 18:03 | ED ---
Upper Extremity HPI - General Chief Complaint: Extremity Injury, Upper Stated Complaint: Rt Wrist Injury Source: patient, RN notes reviewed, old records reviewed Mode of arrival: ambulatory Limitations: no limitations - History of Present Illness Initial Comments: 45-year-old well-appearing well-nourished white female presents to the emergency room with complaints of hitting her right forearm against the side table at home about an hour prior to arrival. Patient states that her wrist and hand as it without pain but her distal radius is painful with palpation with some swelling. Patient states she did not try any medications at home she just came right here. She has history of depression and takes several medications and is a pack-a-day smoker. Patient denies any other injuries. She denies any assault. She states that she is safe at home MD Complaint: Injury to:: right, forearm -: hour(s) (1) Other Extremity Injury: Forearm: Right Other Injuries: none Place: home Severity scale (1-10): 10 Improves With: immobilization Worsens With: other (Palpation) Context: direct blow (Hit it against the side table) Associated Symptoms: denies other symptoms - Related Data Home Medications Medication Instructions Recorded Confirmed DULoxetine HCL [Cymbalta] 60 mg PO BID 01/21/21 02/18/21 OLANZapine 7.5 mg PO DAILY 01/21/21 02/18/21 Methylphenidate HCl 20 mg PO TID 02/18/21 02/18/21 clonazePAM 2 mg PO BID 02/18/21 02/18/21 estradioL [estradioL (Once Weekly) 1 patch TRANSDERM WE 02/18/21 02/18/21 0.1mg Patch] traZODone HCL 100 mg PO HS 02/18/21 02/18/21 Previous Rx's Medication Instructions Recorded Furosemide [Lasix] 40 mg PO BID #6 tablet 02/19/21 Allergies Allergy/AdvReac Type Severity Reaction Status Date / Time No Known Allergies Allergy Verified 03/19/21 17:46 Review of Systems ROS Statement: Those systems with pertinent positive or pertinent negative responses have been documented in the HPI. ROS Other: All systems not noted in ROS Statement are negative. Past Medical History Past Medical History: No Reported History Additional Past Medical History / Comment(s): renal stones, History of Any Multi-Drug Resistant Organisms: None Reported Past Surgical History: Section, Hysterectomy Additional Past Surgical History / Comment(s): Fatty tumor removed, Past Anesthesia/Blood Transfusion Reactions: No Reported Reaction Past Psychological History: Anxiety, Bipolar, Depression Smoking Status: Current every day smoker Past Alcohol Use History: None Reported Past Drug Use History: None Reported - Past Family History Mother Family Medical History: No Reported History General Exam Limitations: no limitations General appearance: alert, in no apparent distress Head exam: Present: atraumatic, normocephalic, normal inspection Eye exam: Present: normal appearance, PERRL, EOMI. Absent: scleral icterus, conjunctival injection, periorbital swelling Pupils: Present: normal accommodation ENT exam: Present: normal exam, normal oropharynx, mucous membranes moist Neck exam: Present: normal inspection, full ROM. Absent: tenderness, meningismus, lymphadenopathy, thyromegaly Respiratory exam: Present: normal lung sounds bilaterally. Absent: respiratory distress, wheezes, rales, rhonchi, stridor, chest wall tenderness, accessory muscle use, decreased breath sounds, prolonged expiratory Cardiovascular Exam: Present: normal rhythm, tachycardia, normal heart sounds. Absent: systolic murmur, diastolic murmur, rubs, gallop, clicks GI/Abdominal exam: Present: soft, normal bowel sounds. Absent: distended, tenderness, guarding, rebound, rigid Right Upper Arm exam: Present: full ROM. Absent: tenderness Elbow exam: Present: full ROM. Absent: tenderness Forearm Wrist exam: Present: tenderness, swelling (Right distal radius ulna). Absent: abrasion, laceration, ecchymosis, deformity, crepitus, dislocation Hand Wrist exam: Present: normal inspection, full ROM. Absent: tenderness, swelling, laceration, ecchymosis, deformity, crepitus, erythema Neuro motor exam: Present: wrist extension intact, thumb opposition intact, thumb IP flexion intact, thumb adduction intact Neurosensory exam: Present: radial nerve intact, ulnar nerve intact, median nerve intact Vascular: Present: normal capillary refill, radial pulse, ulnar pulse. Absent: vascular compromise Back exam: Present: full ROM. Absent: tenderness, CVA tenderness (R), CVA tenderness (L), muscle spasm, paraspinal tenderness, vertebral tenderness Neurological exam: Present: alert, oriented X3, CN II-XII intact Psychiatric exam: Present: normal affect, normal mood Skin exam: Present: warm, dry, intact, normal color. Absent: rash Course Vital Signs 03/19/21 17:46 Temperature 98.7 F Pulse Rate 107 H Respiratory 16 Rate Blood Pressure 156/96 O2 Sat by Pulse 97 Oximetry Medical Decision Making - Medical Decision Making X-ray right forearm shows no osseous abnormalities. Patient will be discharged home with a diagnosis of contusion. Instructed take Tylenol and or Motrin for pain. Follow-up with primary care doctor in 1 week. Case discussed with Dr. Mcgregor who is agreeable to this plan of care Disposition Clinical Impression: Contusion Disposition: HOME SELF-CARE Condition: Good Instructions (If sedation given, give patient instructions): Arm Pain (ED) Additional Instructions: Take Tylenol and/or Motrin for pain, ice, rest, and elevate. Follow-up with primary care doctor in 1 week as needed. Is patient prescribed a controlled substance at d/c from ED?: No Referrals: Marlon Almanza MD [Primary Care Provider] - 1-2 days Time of Disposition: 19:17
--- NOTE | 2021-03-19 19:06 | XR ---
EXAMINATION TYPE: XR forearm RT DATE OF EXAM: 03/19/2021 CLINICAL HISTORY: Falling injury with pain TECHNIQUE: Two views of the right forearm are obtained. COMPARISON: None. FINDINGS: There is no acute fracture or dislocation seen in the right radius or ulna. The right elb ow and wrist joints appear within normal limits. The overlying soft tissue appears within normal thakkar its. IMPRESSION: There is no acute fracture or dislocation seen in the right radius or ulna.
== END 2021-03-19 19:21 | disposition home or self-care (01) ==
LOC: EC 17:24
DX: S50.11XA Contusion of right forearm, initial encounter (principal); F17.200 Nicotine dependence, unspecified, uncomplicated; W22.03XA Walked into furniture, initial encounter; Y92.009 Unspecified place in unspecified non-institutional (private) residence as the place of occurrence of the external cause
CPT/HCPCS: 73090; 99283; 96372; J2270

== ENCOUNTER 2021-03-21 | Emergency (ER) | payer MEDICARE, OTHER | END 2021-03-21 23:25 | disposition home or self-care (01) ==

== ENCOUNTER 2021-03-23 22:22 | Observation (INO) | payer MEDICARE, OTHER ==
[2021-03-23] MEDS ORDERED: MORPHINE SULFATE 2 MG/ML SYRINGE IVP STA (22:42)
[2021-03-23] MEDS ORDERED: ASPIRIN 81 MG PO STA (22:42)
[2021-03-23] MEDS ORDERED: ONDANSETRON 4 MG/2 ML VIAL IVP STA (22:51)
--- NOTE | 2021-03-23 22:52 | ED ---
Chest Pain HPI - General Chief Complaint: Chest Pain Stated Complaint: chest pain, SOB Time Seen by Provider: 03/23/21 22:30 Source: patient Mode of arrival: wheelchair Limitations: no limitations - History of Present Illness Initial Comments: Patient is a 45-year-old female with history of bipolar, presenting to the emergency Department with complaints of chest pain some associated shortness of breath started about 2 hours prior to arrival. She states she was in her dishes when the pain started. She currently rates her pain a 10/10 but is sitting very comfortably speaking as normal. She admits to some radiation towards her left chest. She denies any left arm pain. She denies any recent fevers or chills. She does admit to some mild nausea but no abdominal pain, no vomiting or diarrhea. She's had this pain in the past, but has had no cardiac history. She denies any recent stress test. The only medication she takes is for bipolar, these are not new. She admits to being a daily smoker, no other drug use. She denies history of blood clots. She has no further complaints at this time. Upon arrival to the ER, she is slightly tachycardia at 117, rest of vitals normal. - Related Data Home Medications Medication Instructions Recorded Confirmed DULoxetine HCL [Cymbalta] 60 mg PO BID 01/21/21 03/23/21 Methylphenidate HCl 20 mg PO TID 02/18/21 03/23/21 clonazePAM 2 mg PO BID 02/18/21 03/23/21 traZODone HCL 100 mg PO HS 02/18/21 03/23/21 Fenofibrate Nanocrystallized 145 mg PO DAILY 03/23/21 03/23/21 [Fenofibrate] Ibuprofen [Motrin] 800 mg PO Q6HR PRN 03/23/21 03/23/21 Meloxicam 15 mg PO DAILY 03/23/21 03/23/21 OLANZapine [ZyPREXA] 10 mg PO DAILY 03/23/21 03/23/21 Previous Rx's Medication Instructions Recorded Furosemide [Lasix] 40 mg PO BID #6 tablet 02/19/21 Allergies Allergy/AdvReac Type Severity Reaction Status Date / Time lurasidone [From Latuda] Allergy Rash/Hives Verified 03/23/21 23:22 Review of Systems ROS Statement: Those systems with pertinent positive or pertinent negative responses have been documented in the HPI. ROS Other: All systems not noted in ROS Statement are negative. EKG Findings - EKG Comments: EKG Findings:: Sinus tach otherwise a normal ECG, no signs of acute ST segment elevation. Similar to previous on 02/18/2021. Ventricular rate is 106, IL interval 126, QT 346. Past Medical History Past Medical History: No Reported History Additional Past Medical History / Comment(s): renal stones, History of Any Multi-Drug Resistant Organisms: None Reported Past Surgical History: Section, Hysterectomy Additional Past Surgical History / Comment(s): Fatty tumor removed, Past Anesthesia/Blood Transfusion Reactions: No Reported Reaction Past Psychological History: Anxiety, Bipolar, Depression Smoking Status: Current every day smoker Past Alcohol Use History: None Reported Past Drug Use History: Marijuana - Past Family History Mother Family Medical History: No Reported History General Exam - General Exam Comments Initial Comments: GENERAL: Patient is well-developed and well-nourished. Patient is nontoxic and in no acute distress. HEAD: Atraumatic, normocephalic. EYES: Pupils equal round and reactive to light, extraocular movements intact, sclera anicteric, conjunctiva are normal. Eyelids were unremarkable. ENT: TMs normal, nares patent, oropharynx clear without exudates. Moist mucous membranes. NECK: Normal range of motion, supple without lymphadenopathy or JVD. LUNGS: Unlabored respirations. Breath sounds clear to auscultation bilaterally and equal. No wheezes rales or rhonchi. HEART: Regular rate and rhythm without murmurs, rubs or gallops. ABDOMEN: Soft, nontender, normoactive bowel sounds. No guarding, no rebound. No masses appreciated. : Deferred MUSCULOSKELETAL: Normal extremities with adequate strength and normal range of motion, no pitting or edema. No clubbing or cyanosis. NEUROLOGICAL: Patient is alert and oriented x 3. Motor and sensory are also intact. Cranial nerves II through XII grossly intact. Symmetrical smile. Normal speech, normal gait. PSYCH: Normal mood, normal affect. SKIN: Warm, Dry, normal turgor, no rashes or lesions noted. 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 Vital signs are stable, EKG shows sinus tach otherwise no acute ST segment elevations. Labs are within normal limits including a negative d-dimer, normal troponin. Patient was given aspirin, morphine and Zofran. She's been resting comfortably in the room. Although she states no improvement in her symptoms, she seems to be resting comfortably and pain-free, she is asking for the lites to be lowered and water. Patient will be admitted for chest pain, serial troponins. Patient accepted by Dr. Be, with consult to cardiology. Case discussed with Dr. Cedillo. Disposition Clinical Impression: Chest pain Disposition: ADMITTED IP TO THIS HOSP Condition: Stable Is patient prescribed a controlled substance at d/c from ED?: No Referrals: Marlon Almanza MD [Primary Care Provider] - 1-2 days Decision Date: 03/24/21 Decision Time: 00:30
[2021-03-23 23:21] LABS: Basophils # (A) 0.1 k/uL (0-0.2); Basophils % (A) 1 %; Eosinophils # (A) 0.2 k/uL (0-0.7); Eosinophils % (A) 2 %; HCT 37.8 % (34.0-46.0); HGB 13.2 gm/dL (11.4-16.0); Lymphocytes # (A) 2.6 k/uL (1.0-4.8); Lymphocytes % (A) 29 %; MCH 33.2 pg (25.0-35.0); MCHC 34.8 g/dL (31.0-37.0); MCV 95.5 fL (80.0-100.0); Mean Platelet Volume 8.6; Monocytes # (A) 0.6 k/uL (0-1.0); Monocytes % (A) 7 %; Neutrophils # (A) 5.5 k/uL (1.3-7.7); Neutrophils % (A) 60 %; Platelet Count 220 k/uL (150-450); RBC 3.96 m/uL (3.80-5.40); RDW 13.4 % (11.5-15.5); WBC 9.1 k/uL (3.8-10.6)
[2021-03-23 23:31] LABS: ALT 70 U/L (4-34); AST 47 U/L (14-36); African American GFR (CKD) >90 (>60 ml/min/1.73 sqM); Albumin 4.1 g/dL (3.5-5.0); Alkaline Phosphatase 109 U/L (38-126); Anion Gap 7 mmol/L; Blood Urea Nitrogen 15 mg/dL (7-17); Calcium 9.3 mg/dL (8.4-10.2); Carbon Dioxide 26 mmol/L (22-30); Chloride 107 mmol/L (98-107); Glucose 142 mg/dL (74-99); Magnesium 1.9 mg/dL (1.6-2.3); Non-African American GFR(CKD) 85 (>60 ml/min/1.73 sqM); Potassium 3.7 mmol/L (3.5-5.1); Sodium 140 mmol/L (137-145); Total Bilirubin 0.2 mg/dL (0.2-1.3); Total Protein 6.5 g/dL (6.3-8.2)
--- NOTE | 2021-03-23 23:31 | XR ---
EXAMINATION TYPE: XR chest 2V DATE OF EXAM: 03/23/2021 COMPARISON: 02/18/2021 HISTORY: Chest pain TECHNIQUE: FINDINGS: Heart and mediastinum are normal. Lungs are clear. Diaphragm is normal. Bony thorax appears normal. There are chest leads. IMPRESSION: Normal chest. No change.
[2021-03-23 23:39] LABS: INR 0.9 (<1.2); Partial Thromboplastin Time 23.2 sec (22.0-30.0)
[2021-03-24] MEDS ORDERED: NITROGLYCERIN SL TABS 0.4 MG TAB SUBLINGUAL PRN (00:28)
[2021-03-24] MEDS: ACETAMINOPHEN TAB 325 MG TAB PO PRN ×2 (01:54→10:37)
[2021-03-24] MEDS ORDERED: traZODone HCL 100 MG TAB PO SCH (03:00)
[2021-03-24 07:46] VITALS: RESP 16
[2021-03-24] MEDS ORDERED: DOBUTamine DRIP for NUC MED 500 MG in DEXTROSE/WATER 1 250ML.BAG IV PRN (08:50)
[2021-03-24] MEDS ORDERED: FENOFIBRATE 160 MG TAB PO SCH (09:00)
[2021-03-24] MEDS ORDERED: FUROSEMIDE 40 MG TAB PO SCH (09:00)
[2021-03-24] MEDS ORDERED: MELOXICAM 7.5 MG TAB PO SCH (09:00)
[2021-03-24] MEDS ORDERED: DULoxetine HCL 60 MG CAPSULE.DR PO SCH (09:00)
[2021-03-24] MEDS ORDERED: clonazePAM 1 MG TAB PO SCH (09:00)
[2021-03-24] MEDS ORDERED: OLANZapine 10 MG TAB PO SCH (09:00)
[2021-03-24] MEDS ORDERED: METHYLPHENIDATE HCL 10 MG TAB PO SCH (09:00)
--- NOTE | 2021-03-24 10:32 | P.CRDCN ---
History of Present Illness History of present illness: HISTORY OF PRESENTING ILLNESS This is a pleasant 45-year-old female past medical history significant for bipolar, anxiety and depression. 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 We have been asked to see in consultation for chest pain. She states yesterday while doing the dishes she felt a pain in the mid-sternal region like a ton of bricks sitting on her chest. There was some radiation to the left shoulder. The pain started last evening around 8pm and is still ongoing. The pain is exacerbated by movement of the left arm and raising her arm above her shoulder. She denies associated shortness of breath, dizziness or palpitations. According to the nursing staff the patient verbalized she is under significant stress at home and has been feeling these pains intermittently for the previous 6 months. DIAGNOSTICS EKG reveals sinus tachycardia. Telemetry tracings indicate sinus mechanism. Chest xray negative for any acute cardiopulmonary process. Laboratory reviewed, CBC unremarkable, d-dimer 0.43, sodium 140, potassium 3.7, creatinine 0.83, cardiac enzymes negative 3 and NT proBNP 58. Current cardiac medications include Lasix 40 mg twice a day. REVIEW OF SYSTEMS At the time of my exam: CONSTITUTIONAL: Denies fever or chills. CARDIOVASCULAR: Denies chest pain, shortness of breath, orthopnea, PND or palpitations. RESPIRATORY: Denies cough. GASTROINTESTINAL: Denies abdominal pain, diarrhea, constipation, nausea or vomiting. MUSCULOSKELETAL: Denies myalgias. NEUROLOGIC: Denies numbness, tingling, headacbe or weakness. ENDOCRINE: Denies fatigue, weight change, polydipsia or polyurina. GENITOURINARY: Denies burning, hematuria or urgency with micturation. HEMATOLOGIC: Denies history of anemia or bleeding. PHYSICAL EXAMINATION Blood pressure 125/84 heart rate 92 afebrile and maintaining oxygen saturation on room air. CONSTITUTIONAL: No apparent distress. HEENT: Head is normocephalic. Pupils are equal, round. Sclerae anicteric. Mucous membranes of the mouth are moist. No JVD. No carotid bruit. CHEST EXAMINATION: Lungs are clear to auscultation. No chest wall tenderness is noted on palpation or with deep breathing. HEART EXAMINATION: Regular rate and rhythm. S1, S2 heard. No murmurs, gallops or rub. ABDOMEN: Soft, nontender. Positive bowel sounds. EXTREMITIES: 2+ peripheral pulses, no lower extremity edema and no calf tenderness. NEUROLOGIC EXAMINATION: Patient is awake, alert and oriented x3. ASSESSMENT Chest pain, atypical PLAN An acute coronary event has been ruled out. Pain is atypical with some musculoskeletal features however has been going on for 6 months. We will perform a dobutamine stress echocardiogram today and if unremarkable she can be discharged this afternoon. Thank you kindly for this consultation. Nurse Practitioner note has been reviewed, I agree with a documented findings and plan of care. Patient was seen and examined. Past Medical History Past Medical History: No Reported History Additional Past Medical History / Comment(s): Bipolar disorder, anxiety, depression, ADHD History of Any Multi-Drug Resistant Organisms: None Reported Past Surgical History: Section, Hysterectomy Additional Past Surgical History / Comment(s): 2 sections, 5 cysts removed Past Anesthesia/Blood Transfusion Reactions: No Reported Reaction Past Psychological History: Anxiety, Bipolar, Depression Smoking Status: Current every day smoker, Vaper Past Alcohol Use History: None Reported Additional Past Alcohol Use History / Comment(s): started smoking at age 11 smokes 1ppd Past Drug Use History: Marijuana Additional Drug Use History / Comment(s): rare occasion - Past Family History Mother Family Medical History: No Reported History Medications and Allergies Home Medications Medication Instructions Recorded Confirmed Type DULoxetine HCL [Cymbalta] 60 mg PO BID 01/21/21 03/23/21 History Methylphenidate HCl 20 mg PO TID 02/18/21 03/23/21 History clonazePAM 2 mg PO BID 02/18/21 03/23/21 History traZODone HCL 100 mg PO HS 02/18/21 03/23/21 History Furosemide [Lasix] 40 mg PO BID #6 tablet 02/19/21 03/23/21 Rx Fenofibrate Nanocrystallized 145 mg PO DAILY 03/23/21 03/23/21 History [Fenofibrate] Ibuprofen [Motrin] 800 mg PO Q6HR PRN 03/23/21 03/23/21 History Meloxicam 15 mg PO DAILY 03/23/21 03/23/21 History OLANZapine [ZyPREXA] 10 mg PO DAILY 03/23/21 03/23/21 History Allergies Allergy/AdvReac Type Severity Reaction Status Date / Time lurasidone [From Latuda] Allergy Rash/Hives Verified 03/23/21 23:22 Physical Exam Vitals: Vital Signs Temp Pulse Pulse Pulse Resp BP BP 03/24/21 07:00 97.7 F 92 16 125/84 03/24/21 01:55 98.3 F 99 18 155/98 03/24/21 01:15 99 03/24/21 00:56 87 16 133/81 03/23/21 23:35 102 H 03/23/21 22:24 98.4 F 117 H 20 142/76 Pulse Ox 03/24/21 07:00 96 03/24/21 01:55 97 03/24/21 01:15 03/24/21 00:56 98 03/23/21 23:35 03/23/21 22:24 98 Intake and Output 03/23/21 03/24/21 03/24/21 22:59 06:59 14:59 Other: # Voids 2 Weight 81.647 kg 81.647 kg Results 03/23/21 22:42 03/23/21 22:42 Cardiac Enzymes 03/23/21 03/23/21 03/24/21 Range/Units 22:42 22:42 00:55 AST 47 H (14-36) U/L Troponin I <0.012 <0.012 (0.000-0.034) ng/mL 03/24/21 Range/Units 05:08 AST (14-36) U/L Troponin I <0.012 (0.000-0.034) ng/mL Coagulation 03/23/21 Range/Units 22:42 PT 10.0 (9.0-12.0) sec APTT 23.2 (22.0-30.0) sec CBC 03/23/21 Range/Units 22:42 WBC 9.1 (3.8-10.6) k/uL RBC 3.96 (3.80-5.40) m/uL Hgb 13.2 (11.4-16.0) gm/dL Hct 37.8 (34.0-46.0) % Plt Count 220 (150-450) k/uL Comprehensive Metabolic Panel 03/23/21 Range/Units 22:42 Sodium 140 (137-145) mmol/L Potassium 3.7 (3.5-5.1) mmol/L Chloride 107 (98-107) mmol/L Carbon Dioxide 26 (22-30) mmol/L BUN 15 (7-17) mg/dL Creatinine 0.83 (0.52-1.04) mg/dL Glucose 142 H (74-99) mg/dL Calcium 9.3 (8.4-10.2) mg/dL AST 47 H (14-36) U/L ALT 70 H (4-34) U/L Alkaline Phosphatase 109 (38-126) U/L Total Protein 6.5 (6.3-8.2) g/dL Albumin 4.1 (3.5-5.0) g/dL Current Medications Generic Name Dose Route Start Last Admin Trade Name Freq PRN Reason Stop Dose Admin Acetaminophen 650 mg 03/24/21 00:28 03/24/21 01:54 Acetaminophen Tab 325 Mg Tab PO 650 mg Q4HR PRN Administration Pain Aspirin 325 mg 03/25/21 09:00 Aspirin 325 Mg Tab PO DAILY ED Clonazepam 2 mg 03/24/21 09:00 03/24/21 08:34 Clonazepam 1 Mg Tab PO 2 mg BID ED Administration Duloxetine HCl 60 mg 03/24/21 09:00 03/24/21 08:34 Duloxetine Hcl 60 Mg Capsule.Dr PO 60 mg BID ED Administration Fenofibrate 160 mg 03/24/21 09:00 03/24/21 08:35 Fenofibrate 160 Mg Tab PO 160 mg DAILY ED Administration Furosemide 40 mg 03/24/21 09:00 03/24/21 08:34 Furosemide 40 Mg Tab PO 40 mg BID ED Administration Meloxicam 15 mg 03/24/21 09:00 03/24/21 08:35 Meloxicam 7.5 Mg Tab PO 15 mg DAILY ED Administration Methylphenidate HCl 20 mg 03/24/21 09:00 03/24/21 08:35 Methylphenidate Hcl 10 Mg Tab PO 20 mg TID ED Administration Nitroglycerin 0.4 mg 03/24/21 00:28 Nitroglycerin Sl Tabs 0.4 Mg Tab SUBLINGUAL Q5M PRN Chest Pain Olanzapine 10 mg 03/24/21 09:00 03/24/21 08:36 Olanzapine 10 Mg Tab PO 10 mg DAILY ED Administration Trazodone HCl 100 mg 03/24/21 03:00 03/24/21 02:56 Trazodone Hcl 100 Mg Tab PO 100 mg HS ED Administration Intake and Output 03/23/21 03/24/21 03/24/21 22:59 06:59 14:59 Other: # Voids 2 Weight 81.647 kg 81.647 kg 03/23/21 22:42 03/23/21 22:42
[2021-03-24] MEDS ORDERED: NICOTINE 21MG/24HR PATCH TRANSDERM SCH (12:00)
--- NOTE | 2021-03-24 13:47 | P.STRESS ---
- Stress Test Note Stress Test Results/Findings: Exam Performed: dobutamine stress echo with con Exam Date: 03/24/21 Reason for Exam: Chest pain Height: 5 ft 4 in Weight: 81.65 kg Protocol: Bobutamine stress echo Stage: IV Duration of Exercise: 12.49 min Resting Heart Rate: 84 Resting Blood Pressure: 125/88 Maximum Achieved Heart Rate: 139 Maximum Achieved Blood Pressure: 136/60 85% PMHR: 148 100% PMHR: 174 METS: Technologist Comment: Stress Test Results/Findings: No ECG evidence of ischemia during dobutamine infusion up to 40 mics, or during recovery Occasional PVCs Baseline 2-D echo showed normal LV size and systolic function without segmental wall motion abnormalities Stepwise augmentation in overall LV contractility with dobutamine infusion No echocardiographic evidence for ischemia during dobutamine infusion or during recovery Impression No ECG or echocardiographic evidence for ischemia
[2021-03-24 14:33] VITALS: BP 115/77; PULSE 96; TEMP 98.7
[2021-03-24 15:12] LABS: Chol/HDL Ratio 5.08; LDL Cholesterol,Calculated 136.2 mg/dL (0.0-131.0); VLDL Calculation 67.8 mg/dL (5.00-40.00)
--- NOTE | 2021-03-24 19:04 | P.HPIM ---
History of Present Illness H&P Date: 03/24/21 Chief Complaint: Chest pain History of presenting complaint: This is a pleasant 45-year-old patient of Dr. Marlon Almanza. Chronic stable medical conditions include bipolar disorder, ADHD, scoliosis causing back pain, hypertriglyceridemia, chronic insomnia. 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 Lasted for a few hours. Did radiate to the left arm. This was associated with dizziness of this lightheadedness perspiration. Improvement medications. No prior cardiac history. Patient has a long-standing smoker. Seen by cardiology. Review of systems: GEN.: None EYES: None HEENT: None NECK: None RESPIRATORY: As above CARDIOVASCULAR: As above GASTROINTESTINAL: None GENITOURINARY: None MUSCULOSKELETAL: [Back pain from scoliosis LYMPHATICS: None HEMATOLOGICAL: None PSYCHIATRY: None NEUROLOGICAL: None Past medical history to include: Bipolar disorder, ADHD, insomnia, hypertriglyceridemia, chronic lower extremity edema Social history: . Smoking a pack a day for last 34 years. Marijuana regularly. Does vaping Family history: Reviewed, noncontributory to presentation Physical examination: VITAL SIGNS: 98.4, 87, 20, 142/76, 98% room air GENERAL: BMI 30.9, sitting up, not in distress. EYES: Pupils equal. Conjunctiva normal. HEENT: External appearance of nose and ears normal, oral cavity grossly normal. NECK: JVD not raised; masses not palpable. HEART: First and second heart sounds are normal; no edema. LUNGS: Respiratory rate normal; clear to auscultation. ABDOMEN: Soft, nontender, liver spleen not palpable, no masses palpable. PSYCH: Alert and oriented x3; mood and affect normal. NEUROLOGICAL: Cranial nerves grossly intact; no facial asymmetry, power and sensation grossly intact. LYMPHATICS: No lymph nodes palpable in the axilla and neck INVESTIGATIONS, reviewed in the clinical context: WBC 9.1 hemoglobin 13.2 platelets 220 potassium 3.7 creatinine 0.83 Troponin I 3 negative LDL 136 triglycerides 339 EKG tracing personally reviewed by me-normal sinus rhythm Chest x-ray film personally reviewed by me-lung montano clear Assessment and plan: -Anterior chest wall pain. Negative troponins. Unremarkable EKG. Rule out underlying ischemia. Cardiac consulted -Obesity BMI 30.9 Weight loss measures -Chronic nicotine dependence, cigarette smoker Nicotine patch -Hypertriglyceridemia On TriCor -Chronic idiopathic insomnia On Klonopin -Chronic back pain from scoliosis On meloxicam -Bipolar disorder On Zyprexa, Cymbalta, Klonopin Cardiology was consulted. Stress test was ordered. Nicotine patch ordered. Resume home medications. Care was discussed with the patient Smoke cessation counseling: This was done with the patient. Nicotine patch is being given. More than 3 minutes was spent for this Past Medical History Past Medical History: No Reported History Additional Past Medical History / Comment(s): Bipolar disorder, anxiety, depression, ADHD History of Any Multi-Drug Resistant Organisms: None Reported Past Surgical History: Section, Hysterectomy Additional Past Surgical History / Comment(s): 2 sections, 5 cysts removed Past Anesthesia/Blood Transfusion Reactions: No Reported Reaction Past Psychological History: Anxiety, Bipolar, Depression Smoking Status: Current every day smoker, Vaper Past Alcohol Use History: None Reported Additional Past Alcohol Use History / Comment(s): started smoking at age 11 smokes 1ppd Past Drug Use History: Marijuana Additional Drug Use History / Comment(s): rare occasion - Past Family History Mother Family Medical History: No Reported History Medications and Allergies Home Medications Medication Instructions Recorded Confirmed Type DULoxetine HCL [Cymbalta] 60 mg PO BID 01/21/21 03/23/21 History Methylphenidate HCl 20 mg PO TID 02/18/21 03/23/21 History clonazePAM 2 mg PO BID 02/18/21 03/23/21 History traZODone HCL 100 mg PO HS 02/18/21 03/23/21 History Furosemide [Lasix] 40 mg PO BID #6 tablet 02/19/21 03/23/21 Rx Fenofibrate Nanocrystallized 145 mg PO DAILY 03/23/21 03/23/21 History [Fenofibrate] Meloxicam 15 mg PO DAILY 03/23/21 03/23/21 History OLANZapine [ZyPREXA] 10 mg PO DAILY 03/23/21 03/23/21 History Aspirin 81 mg PO DAILY #30 chewable 03/24/21 Rx Nicotine 21Mg/24Hr Patch [Habitrol] 1 patch TRANSDERM DAILY #30 patch 03/24/21 Rx Nitroglycerin Sl Tabs [Nitrostat] 0.4 mg SUBLINGUAL Q5M PRN #30 tab 03/24/21 Rx Allergies Allergy/AdvReac Type Severity Reaction Status Date / Time lurasidone [From [facility]] Allergy Rash/Hives Verified 03/23/21 23:22 Physical Exam Vitals: Vital Signs Temp Pulse Pulse Pulse Resp BP BP 03/24/21 07:00 97.7 F 92 16 125/84 03/24/21 01:55 98.3 F 99 18 155/98 03/24/21 01:15 99 03/24/21 00:56 87 16 133/81 03/23/21 23:35 102 H 03/23/21 22:24 98.4 F 117 H 20 142/76 Pulse Ox 03/24/21 07:00 96 03/24/21 01:55 97 03/24/21 01:15 03/24/21 00:56 98 03/23/21 23:35 03/23/21 22:24 98 Intake and Output 03/23/21 03/24/21 03/24/21 22:59 06:59 14:59 Other: # Voids 2 Weight 81.647 kg 81.647 kg Results CBC & Chem 7: 03/23/21 22:42 03/23/21 22:42 Labs: Abnormal Lab Results - Last 24 Hours (Table) 03/23/21 Range/Units 22:42 Glucose 142 H (74-99) mg/dL AST 47 H (14-36) U/L ALT 70 H (4-34) U/L Thrombosis Risk Factor Assmnt - Choose All That Apply Each Factor Represents 1 point: Age 41-60 years Thrombosis Risk Factor Assessment Total Risk Factor Score: 1 Thrombosis Risk Factor Assessment Level: Low Risk
--- NOTE | 2021-03-24 19:09 | P.DS ---
Providers Date of admission: 03/24/21 00:35 Expected date of discharge: 03/24/21 Attending physician: Filemon Be Consults: 03/24/21 00:28 Consult Physician Urgent Consulting Provider: [facility] Consult Reason/Comments: chest pain Do you want consulting provider notified?: Yes, Notify in am Primary care physician: Marlon Almanza [facility] Course: Chief Complaint: Chest pain History of presenting complaint: This is a pleasant 45-year-old patient of Dr. Marlon Alamnza. Chronic stable medical conditions include bipolar disorder, ADHD, scoliosis causing back pain, hypertriglyceridemia, chronic insomnia. 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 Lasted for a few hours. Did radiate to the left arm. This was associated with dizziness of this lightheadedness perspiration. Improvement medications. No prior cardiac history. Patient has a long-standing smoker. Seen by cardiology. Troponins were negative. EKG unremarkable. Dobutamine stress echocardiogram negative. He'll be started on aspirin and Lipitor. Smoked counseling done. Consultation: Dr. Bryan Lancaster from cardiology Past medical history to include: Bipolar disorder, ADHD, insomnia, hypertriglyceridemia, chronic lower extremity edema Social history: . Smoking a pack a day for last 34 years. Marijuana regularly. Does vaping Family history: Reviewed, noncontributory to presentation Physical examination: VITAL SIGNS: 98.3, 99, 18, 155/98, 97% room air GENERAL: BMI 30.9, sitting up, comfortable EYES: Pupils equal. Conjunctiva normal. HEENT: External appearance of nose and ears normal, oral cavity grossly normal. NECK: JVD not raised; masses not palpable. HEART: First and second heart sounds are normal; no edema. LUNGS: Respiratory rate normal; clear to auscultation. ABDOMEN: Soft, nontender, liver spleen not palpable, no masses palpable. PSYCH: Alert and oriented x3; mood and affect normal. NEUROLOGICAL: Cranial nerves grossly intact; no facial asymmetry, power and sensation grossly intact. LYMPHATICS: No lymph nodes palpable in the axilla and neck INVESTIGATIONS, reviewed in the clinical context: Dobutamine stress echocardiogram: Negative for ischemia WBC 9.1 hemoglobin 13.2 platelets 220 potassium 3.7 creatinine 0.83 Troponin I 3 negative LDL 136 triglycerides 339 EKG tracing personally reviewed by me-normal sinus rhythm Chest x-ray film personally reviewed by me-lung montano clear Assessment and plan: -Anterior chest wall pain. Negative troponins. Unremarkable EKG. was really musculoskeletal Dobutamine stress echocardiogram negative -Obesity BMI 30.9 Weight loss measures -Chronic nicotine dependence, cigarette smoker Nicotine patch -Hypertriglyceridemia On TriCor -Hyperlipidemia Add Lipitor 20 mg -Chronic idiopathic insomnia On Klonopin -Chronic back pain from scoliosis On meloxicam -Bipolar disorder On Zyprexa, Cymbalta, Klonopin Cardiology was consulted. Stress test was ordered. Nicotine patch ordered. Resume home medications. Care was discussed with the patient Disposition: Home Patient Condition at Discharge: Stable Plan - Discharge Summary Discharge Rx Participant: No New Discharge Prescriptions: New Aspirin 81 mg PO DAILY #30 chewable Nitroglycerin Sl Tabs [Nitrostat] 0.4 mg SUBLINGUAL Q5M PRN #30 tab PRN Reason: Chest Pain Nicotine 21Mg/24Hr Patch [Habitrol] 1 patch TRANSDERM DAILY #30 patch Continue clonazePAM 2 mg PO BID DULoxetine HCL [Cymbalta] 60 mg PO BID Methylphenidate HCl 20 mg PO TID traZODone HCL 100 mg PO HS Furosemide [Lasix] 40 mg PO BID #6 tablet OLANZapine [ZyPREXA] 10 mg PO DAILY Meloxicam 15 mg PO DAILY Fenofibrate Nanocrystallized [Fenofibrate] 145 mg PO DAILY Discontinued Ibuprofen [Motrin] 800 mg PO Q6HR PRN PRN Reason: Pain Discharge Medication List DULoxetine HCL [Cymbalta] 60 mg PO BID 01/21/21 [History] Methylphenidate HCl 20 mg PO TID 02/18/21 [History] clonazePAM 2 mg PO BID 02/18/21 [History] traZODone HCL 100 mg PO HS 02/18/21 [History] Furosemide [Lasix] 40 mg PO BID #6 tablet 02/19/21 [Rx] Fenofibrate Nanocrystallized [Fenofibrate] 145 mg PO DAILY 03/23/21 [History] Meloxicam 15 mg PO DAILY 03/23/21 [History] OLANZapine [ZyPREXA] 10 mg PO DAILY 03/23/21 [History] Aspirin 81 mg PO DAILY #30 chewable 03/24/21 [Rx] Nicotine 21Mg/24Hr Patch [Habitrol] 1 patch TRANSDERM DAILY #30 patch 03/24/21 [Rx] Nitroglycerin Sl Tabs [Nitrostat] 0.4 mg SUBLINGUAL Q5M PRN #30 tab 03/24/21 [Rx] Follow up Appointment(s)/Referral(s): Bryan Lancaster MD [STAFF PHYSICIAN] - 3 Weeks (Office will call with appointment and time.) Marlon Almanza MD [Primary Care Provider] - 03/26/21 4:00 pm Patient Instructions/Handouts: Cardiac Stress Test (DC) Activity/Diet/Wound Care/Special Instructions: activity as tolerated heart healthy diet Discharge Disposition: HOME SELF-CARE
[2021-03-25] MEDS ORDERED: ASPIRIN 325 MG TAB PO SCH (09:00)
== END 2021-03-24 15:40 | disposition home or self-care (01) ==
LOC: EC 22:22 → 6NMEDSUR 03-24 00:35
PROVIDERS: ADMIT Hospitalist; ATTEND Hospitalist
DX: R07.89 Other chest pain (principal); R00.0 Tachycardia, unspecified; R06.02 Shortness of breath; R11.0 Nausea; E78.5 Hyperlipidemia, unspecified; E78.1 Pure hyperglyceridemia; F51.01 Primary insomnia; F31.9 Bipolar disorder, unspecified; F41.9 Anxiety disorder, unspecified; F90.9 Attention-deficit hyperactivity disorder, unspecified type; F17.210 Nicotine dependence, cigarettes, uncomplicated; F17.290 Nicotine dependence, other tobacco product, uncomplicated; M41.9 Scoliosis, unspecified; G89.29 Other chronic pain; M54.9 Dorsalgia, unspecified; E66.9 Obesity, unspecified; Z68.30 Body mass index [BMI] 30.0-30.9, adult; Z79.899 Other long term (current) drug therapy; Z79.1 Long term (current) use of non-steroidal anti-inflammatories (NSAID); Z88.8 Allergy status to other drugs, medicaments and biological substances; Z87.442 Personal history of urinary calculi; Z98.891 History of uterine scar from previous surgery; Z90.710 Acquired absence of both cervix and uterus; Z98.890 Other specified postprocedural states
CPT/HCPCS: 93005 ×2; 96374; 96375; 99285; 36415; 85379; 83880; 80061; 80053; 83735; 84484 ×2; 85025; 85610; 85730; 71046; G0378; C8930; S4990; J1250; J2405; J2270; Q9950; 93351

== ENCOUNTER 2021-03-29 19:46 | Observation (INO) | payer MEDICARE, OTHER ==
[2021-03-29] MEDS ORDERED: ASPIRIN 81 MG PO STA (20:10)
[2021-03-29 20:26] LABS: Basophils # (A) 0.1 k/uL (0-0.2); Basophils % (A) 1 %; Eosinophils # (A) 0.2 k/uL (0-0.7); Eosinophils % (A) 2 %; HCT 37.3 % (34.0-46.0); Lymphocytes # (A) 2.4 k/uL (1.0-4.8); Lymphocytes % (A) 25 %; MCH 33.4 pg (25.0-35.0); MCHC 34.8 g/dL (31.0-37.0); MCV 96.1 fL (80.0-100.0); Mean Platelet Volume 8.8; Monocytes # (A) 0.5 k/uL (0-1.0); Monocytes % (A) 6 %; Neutrophils # (A) 6.2 k/uL (1.3-7.7); Neutrophils % (A) 66 %; Platelet Count 228 k/uL (150-450); RBC 3.88 m/uL (3.80-5.40); RDW 13.1 % (11.5-15.5); WBC 9.5 k/uL (3.8-10.6)
[2021-03-29 20:36] LABS: ALT 52 U/L (4-34); AST 37 U/L (14-36); African American GFR (CKD) >90 (>60 ml/min/1.73 sqM); Alkaline Phosphatase 94 U/L (38-126); Anion Gap 8 mmol/L; Blood Urea Nitrogen 18 mg/dL (7-17); Calcium 9.2 mg/dL (8.4-10.2); Carbon Dioxide 28 mmol/L (22-30); Chloride 104 mmol/L (98-107); Glucose 131 mg/dL (74-99); Magnesium 1.9 mg/dL (1.6-2.3); Non-African American GFR(CKD) >90 (>60 ml/min/1.73 sqM); Potassium 3.7 mmol/L (3.5-5.1); Sodium 140 mmol/L (137-145); Total Bilirubin 0.2 mg/dL (0.2-1.3); Total Protein 6.5 g/dL (6.3-8.2)
[2021-03-29 20:45] LABS: Prothrombin Time 10.5 sec (9.0-12.0)
[2021-03-29 20:46] LABS: Partial Thromboplastin Time 23.7 sec (22.0-30.0)
--- NOTE | 2021-03-29 21:05 | XR ---
EXAMINATION TYPE: XR chest 2V DATE OF EXAM: 03/29/2021 COMPARISON: 03/23/2021 HISTORY: Chest pain TECHNIQUE: 2 view FINDINGS: Heart and mediastinum are normal. Lungs are clear. Diaphragm is normal. Bony thorax is inta ct. There are chest leads. IMPRESSION: Normal chest. No change.
[2021-03-29] MEDS ORDERED: NALOXONE 0.4 MG/ML 1 ML VIAL IV PRN (21:24)
[2021-03-29] MEDS ORDERED: NITROGLYCERIN SL TABS 0.4 MG TAB SUBLINGUAL PRN (21:26)
[2021-03-29] MEDS ORDERED: MORPHINE SULFATE 4 MG/ML SYRINGE IVP PRN (21:38)
[2021-03-29] MEDS: MORPHINE SULFATE 4 MG/ML SYRINGE IV PRN (22:31)
--- NOTE | 2021-03-29 23:56 | ED ---
General Adult HPI - General Chief complaint: Chest Pain Stated complaint: Chest Pain Time Seen by Provider: 03/29/21 20:04 Source: EMS Mode of arrival: EMS - History of Present Illness Initial comments: Patient is a 45-year-old female with past medical history remarkable for bipolar disorder, anxiety, depression, ADHD, chronic chest pain and self stated angina who presents emergency Department complaining of her typical chest pain that she expenses. She describes it as substernal with some mild right-sided radiation. She states it feels crampy and pressure-like. It has been ongoing for one and half hours. She denies any dyspnea, abdominal pain, nausea, vomiting. Denies any headache. She is no weakness or numbness. Patient is concerned about her chest pain. She is to acute complaints at this time. - Related Data Home Medications Medication Instructions Recorded Confirmed DULoxetine HCL [Cymbalta] 60 mg PO BID 01/21/21 03/29/21 Methylphenidate HCl 20 mg PO TID 02/18/21 03/29/21 clonazePAM 2 mg PO BID 02/18/21 03/29/21 traZODone HCL 100 mg PO HS 02/18/21 03/29/21 Fenofibrate Nanocrystallized 145 mg PO DAILY 03/23/21 03/29/21 [Fenofibrate] Meloxicam 15 mg PO DAILY 03/23/21 03/29/21 OLANZapine [ZyPREXA] 10 mg PO DAILY 03/23/21 03/29/21 Previous Rx's Medication Instructions Recorded Furosemide [Lasix] 40 mg PO BID #6 tablet 02/19/21 Aspirin 81 mg PO DAILY #30 chewable 03/24/21 Atorvastatin Calcium [Lipitor] 20 mg PO HS #30 tab 03/24/21 Nicotine 21Mg/24Hr Patch [Habitrol] 1 patch TRANSDERM DAILY #30 patch 03/24/21 Nitroglycerin Sl Tabs [Nitrostat] 0.4 mg SUBLINGUAL Q5M PRN #30 tab 03/24/21 Allergies Allergy/AdvReac Type Severity Reaction Status Date / Time lurasidone [From Latuda] Allergy Rash/Hives Verified 03/29/21 23:03 Review of Systems ROS Statement: Those systems with pertinent positive or pertinent negative responses have been documented in the HPI. Review of Systems: CONST: Denies fever EYES: Denies blurry vision ENT: Denies nasal congestion C/V: Endorses chest pain RESP: Denies shortness of breath GI: Denies abdominal pain : Denies dysuria SKIN: Denies rash. MSK: Denies joint pain. NEURO: Denies headache ROS Other: All systems not noted in ROS Statement are negative. Past Medical History Past Medical History: No Reported History Additional Past Medical History / Comment(s): Bipolar disorder, anxiety, depression, ADHD History of Any Multi-Drug Resistant Organisms: None Reported Past Surgical History: Section, Hysterectomy Additional Past Surgical History / Comment(s): 2 sections, 5 cysts removed Past Anesthesia/Blood Transfusion Reactions: No Reported Reaction Past Psychological History: Anxiety, Bipolar, Depression Smoking Status: Current every day smoker, Vaper Past Alcohol Use History: None Reported Past Drug Use History: Marijuana - Past Family History Mother Family Medical History: No Reported History General Exam - General Exam Comments Initial Comments: General: Appears in no acute distress. Patient has a flat affect. HEAD: Normal with no signs of head trauma. EYES: PERRLA, EOMI, conjunctiva normal, no discharge. ENT: Hearing grossly intact, normal oropharynx. RESPIRATORY: Clear breath sounds bilaterally. No wheezes, rales, or rhonchi. C/V: Regular rate and rhythm. S1 and S2 auscultated, no edema, peripheral pulses 2+ and intact throughout ABD: Abd is soft, nontender, nondistended EXT: Normal range of motion, no obvious deformity SKIN: No rashes or lesions observed on exposed skin. NEURO: Alert and oriented 4. No focal deficits. Course Vital Signs 03/29/21 03/29/21 03/29/21 19:47 21:00 22:35 Temperature 98.6 F 98.5 F Pulse Rate 94 92 94 Respiratory 16 18 18 Rate Blood Pressure 151/88 102/79 147/86 O2 Sat by Pulse 98 97 96 Oximetry Medical Decision Making - Medical Decision Making Based on the patient's presentation and physical exam, I'm concerned for possible cardiac etiology for her current chest pain with her history of angina. Therefore we will obtain a cardiac workup including labs, troponin, EKG, chest x-ray. She'll be connected to continuous cardiac monitoring. She will be given an aspirin. Patient was also administered morphine for pain management. She was in agreement with this plan. Patient's laboratory studies are remarkable for a negative troponin. Patient is extremely mild elevations in AST and ALT of 37 and 52. The remainder of her labs are unremarkable. EKG shows no acute ischemic changes. Chest x-ray reveals no acute cardiopulmonary process. On reevaluation, patient still complaining of chest pain. She'll be redosed morphine. I did discuss with her the results of laboratory studies and the normal workup. Despite her low heart score, with her continued chest pain and history of angina, like to admit her to observation telemetry for troponin trending and monitoring. She was in agreement with this plan. Recent stress test was negative for ischemia. Cardiology was consulted, Dr. Carlos, to evaluate the morning. I spoke the patient's admitting physician, Dr. Be, who accepted the admission. Patient was therefore admitted to observation telemetry in stable condition. - Lab Data Result diagrams: 03/29/21 20:15 03/29/21 20:15 Lab Results 03/29/21 03/29/21 03/29/21 Range/Units 20:15 20:15 20:15 WBC 9.5 (3.8-10.6) k/uL RBC 3.88 (3.80-5.40) m/uL Hgb 13.0 (11.4-16.0) gm/dL Hct 37.3 (34.0-46.0) % MCV 96.1 (80.0-100.0) fL MCH 33.4 (25.0-35.0) pg MCHC 34.8 (31.0-37.0) g/dL RDW 13.1 (11.5-15.5) % Plt Count 228 (150-450) k/uL MPV 8.8 Neutrophils % 66 % Lymphocytes % 25 % Monocytes % 6 % Eosinophils % 2 % Basophils % 1 % Neutrophils # 6.2 (1.3-7.7) k/uL Lymphocytes # 2.4 (1.0-4.8) k/uL Monocytes # 0.5 (0-1.0) k/uL Eosinophils # 0.2 (0-0.7) k/uL Basophils # 0.1 (0-0.2) k/uL PT 10.5 (9.0-12.0) sec INR 1.0 (<1.2) APTT 23.7 (22.0-30.0) sec Sodium 140 (137-145) mmol/L Potassium 3.7 (3.5-5.1) mmol/L Chloride 104 (98-107) mmol/L Carbon Dioxide 28 (22-30) mmol/L Anion Gap 8 mmol/L BUN 18 H (7-17) mg/dL Creatinine 0.77 (0.52-1.04) mg/dL Est GFR (CKD-EPI)AfAm >90 (>60 ml/min/1.73 sqM) Est GFR (CKD-EPI)NonAf >90 (>60 ml/min/1.73 sqM) Glucose 131 H (74-99) mg/dL Calcium 9.2 (8.4-10.2) mg/dL Magnesium 1.9 (1.6-2.3) mg/dL Total Bilirubin 0.2 (0.2-1.3) mg/dL AST 37 H (14-36) U/L ALT 52 H (4-34) U/L Alkaline Phosphatase 94 (38-126) U/L Troponin I (0.000-0.034) ng/mL Total Protein 6.5 (6.3-8.2) g/dL Albumin 4.0 (3.5-5.0) g/dL 03/29/21 Range/Units 20:15 WBC (3.8-10.6) k/uL RBC (3.80-5.40) m/uL Hgb (11.4-16.0) gm/dL Hct (34.0-46.0) % MCV (80.0-100.0) fL MCH (25.0-35.0) pg MCHC (31.0-37.0) g/dL RDW (11.5-15.5) % Plt Count (150-450) k/uL MPV Neutrophils % % Lymphocytes % % Monocytes % % Eosinophils % % Basophils % % Neutrophils # (1.3-7.7) k/uL Lymphocytes # (1.0-4.8) k/uL Monocytes # (0-1.0) k/uL Eosinophils # (0-0.7) k/uL Basophils # (0-0.2) k/uL PT (9.0-12.0) sec INR (<1.2) APTT (22.0-30.0) sec Sodium (137-145) mmol/L Potassium (3.5-5.1) mmol/L Chloride (98-107) mmol/L Carbon Dioxide (22-30) mmol/L Anion Gap mmol/L BUN (7-17) mg/dL Creatinine (0.52-1.04) mg/dL Est GFR (CKD-EPI)AfAm (>60 ml/min/1.73 sqM) Est GFR (CKD-EPI)NonAf (>60 ml/min/1.73 sqM) Glucose (74-99) mg/dL Calcium (8.4-10.2) mg/dL Magnesium (1.6-2.3) mg/dL Total Bilirubin (0.2-1.3) mg/dL AST (14-36) U/L ALT (4-34) U/L Alkaline Phosphatase (38-126) U/L Troponin I <0.012 (0.000-0.034) ng/mL Total Protein (6.3-8.2) g/dL Albumin (3.5-5.0) g/dL - EKG Data -: EKG Interpreted by Me EKG Comments: 12-lead Electrocardiogram Interpretation Note EKG was reviewed and interpreted by myself. 12-lead ECG performed at 1956 is interpreted by me as revealing normal sinus rhythm at a rate of 91 beats per minute. [place] is normal. CT interval is 130 ms, QRS duration is 84 ms, QTc is 447 ms.. There were no ST or T wave abnormalities to suggest myocardial ischemia or injury. R wave progression across the precordium was satisfactory. By my interpretation this EKG is non-diagnostic for acute ischemia. Disposition Clinical Impression: Chest pain of unknown etiology, History of angina Disposition: ADMITTED IP TO THIS [facility] Condition: Stable
[2021-03-30] MEDS: MORPHINE SULFATE 4 MG/ML SYRINGE IV PRN ×3 (02:43→21:25)
[2021-03-30] MEDS: FUROSEMIDE 40 MG TAB PO SCH ×2 (07:33→21:26)
[2021-03-30] MEDS: PANTOPRAZOLE 40 MG TABLET PO SCH (07:33)
[2021-03-30 07:57] VITALS: RESP 16
[2021-03-30] MEDS ORDERED: ASPIRIN 81 MG PO SCH (09:00)
--- NOTE | 2021-03-30 09:53 | P.CRDCN ---
History of Present Illness History of present illness: HISTORY OF PRESENTING ILLNESS This is a pleasant 45-year-old female past medical history significant for anxiety, bipolar, depression, recently diagnosed dyslipidemia and chronic n icotine dependence. 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 We have been asked to see in consultation for chest pain. She was seen here in the observation unit for chest pain last week and underwent dobutamine stress echocardiogram that was negative for stress-induced cardiac ischemia. She states upon discharge she was chest pain-free however shortly after arriving home she again developed chest discomfort described as a heavy pressure sensation like a ton of bricks sitting on her chest. The discomfort has been constant since according to the patient. There is no radiation to the arm, back, neck or jaw. There is no associated shortness of breath, dizziness, palpitations, nausea, vomiting or diaphoresis. The pain is not exacerbated by movement of her arms or shoulders. It is not reproducible on exam. It is not exacerbated by activity or exertion. DIAGNOSTICS EKG reveals sinus mechanism with no acute ST or T wave abnormalities noted. Telemetry tracings indicate persistent sinus mechanism with no acute arrhythmia. Chest xray negative for an acute cardiopulmonary process. Laboratory reviewed, CBC unremarkable, sodium 140, potassium 3.7, creatinine 0.77, mesion 1.9 and cardiac enzymes negative 3. Current cardiac medications include aspirin 81 mg daily, atorvastatin 20 mg daily and Lasix 40 mg twice a day. REVIEW OF SYSTEMS At the time of my exam: CONSTITUTIONAL: Denies fever or chills. CARDIOVASCULAR: Denies chest pain, shortness of breath, orthopnea, PND or palpitations. RESPIRATORY: Denies cough. GASTROINTESTINAL: Denies abdominal pain, diarrhea, constipation, nausea or vomiting. MUSCULOSKELETAL: Denies myalgias. NEUROLOGIC: Denies numbness, tingling, headacbe or weakness. ENDOCRINE: Denies fatigue, weight change, polydipsia or polyurina. GENITOURINARY: Denies burning, hematuria or urgency with micturation. HEMATOLOGIC: Denies history of anemia or bleeding. PHYSICAL EXAMINATION Blood pressure 133/91 heart rate 87 afebrile and maintaining oxygen saturation on room air. CONSTITUTIONAL: No apparent distress. HEENT: Head is normocephalic. Pupils are equal, round. Sclerae anicteric. Mucous membranes of the mouth are moist. No JVD. No carotid bruit. CHEST EXAMINATION: Lungs are clear to auscultation. No chest wall tenderness is noted on palpation or with deep breathing. HEART EXAMINATION: Regular rate and rhythm. S1, S2 heard. No murmurs, gallops or rub. ABDOMEN: Soft, nontender. Positive bowel sounds. EXTREMITIES: 2+ peripheral pulses, no lower extremity edema and no calf tenderness. NEUROLOGIC EXAMINATION: Patient is awake, alert and oriented x3. ASSESSMENT Chest pain, atypical Dyslipidemia Psychiatric illness Chronic nicotine dependence PLAN An acute coronary event has been ruled out. Recent stress testing reviewed, no evidence of stress-induced ischemia. Recommend increasing activity and ambulation. Ongoing medical management and evaluation for alternative etiology for discomfort. Pain does not appear to be related to her heart. No further cardiac workup at this time, follow-up in the office with Dr. Lancaster. Smoking cessation recommended. Thank you kindly for this consultation. Nurse Practitioner note has been reviewed, I agree with a documented findings and plan of care. Patient was seen and examined. Past Medical History Past Medical History: No Reported History Additional Past Medical History / Comment(s): Bipolar disorder, anxiety, depression, ADHD History of Any Multi-Drug Resistant Organisms: None Reported Past Surgical History: Section, Hysterectomy Additional Past Surgical History / Comment(s): 2 sections, 5 cysts removed Past Anesthesia/Blood Transfusion Reactions: No Reported Reaction Past Psychological History: Anxiety, Bipolar, Depression Smoking Status: Current every day smoker, Vaper Past Alcohol Use History: None Reported Past Drug Use History: Marijuana - Past Family History Mother Family Medical History: No Reported History Medications and Allergies Home Medications Medication Instructions Recorded Confirmed Type DULoxetine HCL [Cymbalta] 60 mg PO BID 01/21/21 03/29/21 History Methylphenidate HCl 20 mg PO TID 02/18/21 03/29/21 History clonazePAM 2 mg PO BID 02/18/21 03/29/21 History traZODone HCL 100 mg PO HS 02/18/21 03/29/21 History Furosemide [Lasix] 40 mg PO BID #6 tablet 02/19/21 03/29/21 Rx Fenofibrate Nanocrystallized 145 mg PO DAILY 03/23/21 03/29/21 History [Fenofibrate] Meloxicam 15 mg PO DAILY 03/23/21 03/29/21 History OLANZapine [ZyPREXA] 10 mg PO DAILY 03/23/21 03/29/21 History Aspirin 81 mg PO DAILY #30 chewable 03/24/21 03/29/21 Rx Atorvastatin Calcium [Lipitor] 20 mg PO HS #30 tab 03/24/21 03/29/21 Rx Nicotine 21Mg/24Hr Patch [Habitrol] 1 patch TRANSDERM DAILY #30 patch 03/24/21 03/29/21 Rx Nitroglycerin Sl Tabs [Nitrostat] 0.4 mg SUBLINGUAL Q5M PRN #30 tab 03/24/21 03/29/21 Rx Allergies Allergy/AdvReac Type Severity Reaction Status Date / Time lurasidone [From Latuda] Allergy Rash/Hives Verified 03/29/21 23:03 Physical Exam Vitals: Vital Signs Temp Pulse Pulse Pulse Resp BP BP 03/30/21 07:00 98.4 F 87 16 133/91 03/30/21 00:58 98.1 F 88 18 132/88 03/30/21 00:36 98.6 F 90 18 138/83 03/29/21 22:35 98.5 F 94 18 147/86 03/29/21 21:35 98.1 F 86 16 132/88 03/29/21 21:00 92 18 102/79 03/29/21 19:47 98.6 F 94 16 151/88 Pulse Ox 03/30/21 07:00 97 03/30/21 00:58 97 03/30/21 00:36 97 03/29/21 22:35 96 03/29/21 21:35 96 03/29/21 21:00 97 03/29/21 19:47 98 Intake and Output 03/29/21 03/30/21 03/30/21 22:59 06:59 14:59 Other: # Voids 1 Weight 90.718 kg Results 03/29/21 20:15 03/29/21 20:15 Cardiac Enzymes 03/29/21 03/29/21 03/29/21 Range/Units 20:15 20:15 23:50 AST 37 H (14-36) U/L Troponin I <0.012 <0.012 (0.000-0.034) ng/mL 03/30/21 Range/Units 02:28 AST (14-36) U/L Troponin I <0.012 (0.000-0.034) ng/mL Coagulation 03/29/21 Range/Units 20:15 PT 10.5 (9.0-12.0) sec APTT 23.7 (22.0-30.0) sec CBC 03/29/21 Range/Units 20:15 WBC 9.5 (3.8-10.6) k/uL RBC 3.88 (3.80-5.40) m/uL Hgb 13.0 (11.4-16.0) gm/dL Hct 37.3 (34.0-46.0) % Plt Count 228 (150-450) k/uL Comprehensive Metabolic Panel 03/29/21 Range/Units 20:15 Sodium 140 (137-145) mmol/L Potassium 3.7 (3.5-5.1) mmol/L Chloride 104 (98-107) mmol/L Carbon Dioxide 28 (22-30) mmol/L BUN 18 H (7-17) mg/dL Creatinine 0.77 (0.52-1.04) mg/dL Glucose 131 H (74-99) mg/dL Calcium 9.2 (8.4-10.2) mg/dL AST 37 H (14-36) U/L ALT 52 H (4-34) U/L Alkaline Phosphatase 94 (38-126) U/L Total Protein 6.5 (6.3-8.2) g/dL Albumin 4.0 (3.5-5.0) g/dL Current Medications Generic Name Dose Route Start Last Admin Trade Name Freq PRN Reason Stop Dose Admin Aspirin 81 mg 03/30/21 09:00 03/30/21 07:33 Aspirin 81 Mg PO 81 mg DAILY ED Administration Atorvastatin Calcium 20 mg 03/30/21 21:00 Atorvastatin 20 Mg Tab PO HS ED Furosemide 40 mg 03/30/21 09:00 03/30/21 07:33 Furosemide 40 Mg Tab PO 40 mg BID ED Administration Morphine Sulfate 4 mg 03/29/21 21:24 03/30/21 07:33 Morphine Sulfate 4 Mg/Ml Syringe IV 4 mg Q4HR PRN Administration Severe Pain Morphine Sulfate 4 mg 03/29/21 21:38 Morphine Sulfate 4 Mg/Ml Syringe IVP Q4HR PRN Pain Naloxone HCl 0.2 mg 03/29/21 21:24 Naloxone 0.4 Mg/Ml 1 Ml Vial IV Q2M PRN Opioid Reversal Nitroglycerin 0.4 mg 03/29/21 21:26 Nitroglycerin Sl Tabs 0.4 Mg Tab SUBLINGUAL Q5M PRN Chest Pain Pantoprazole Sodium 40 mg 03/30/21 08:15 03/30/21 07:33 Pantoprazole 40 Mg Tablet PO 40 mg [id number] ED Administration Intake and Output 03/29/21 03/30/21 03/30/21 22:59 06:59 14:59 Other: # Voids 1 Weight 90.718 kg 03/29/21 20:15 03/29/21 20:15
[2021-03-30] MEDS: NICOTINE 21MG/24HR PATCH TRANSDERM SCH (11:27)
[2021-03-30] MEDS: METHYLPHENIDATE HCL 10 MG TAB PO SCH ×2 (11:27→17:12)
[2021-03-30] MEDS: clonazePAM 1 MG TAB PO SCH ×2 (11:28→21:26)
[2021-03-30] MEDS: MELOXICAM 7.5 MG TAB PO SCH (11:28)
[2021-03-30] MEDS: DULoxetine HCL 60 MG CAPSULE.DR PO SCH ×2 (11:28→21:26)
[2021-03-30] MEDS: OLANZapine 10 MG TAB PO SCH (11:29)
[2021-03-30] MEDS: FENOFIBRATE 160 MG TAB PO SCH (11:30)
--- NOTE | 2021-03-30 15:00 | P.HPIM ---
History of Present Illness H&P Date: 03/30/21 Chief Complaint: AICD firing History of presenting complaint: This is a pleasant 45-year-old patient of Dr. Marlon Almanza. Chronic stable medical conditions include bipolar disorder, ADHD, scoliosis causing back pain, hypertriglyceridemia, chronic insomnia. Patient was just in the hospital from March 23 through March 24. Presented with chest pain. Dobutamine stress echo cardiogram was negative. Patient is due to follow-up with Dr. Ryan Lancaster. Patient did 2 hours of swimming yesterday. Following that she developed pressure in the upper part of the chest around 7 PM. Last most of the day. She was dizzy, lightheaded, did break out in a sweat. Also short of breath. And decided to come in. She is quite concerned about cardiac status. Review of systems: GEN.: None EYES: None HEENT: None NECK: None RESPIRATORY: As above CARDIOVASCULAR: As above GASTROINTESTINAL: None GENITOURINARY: None MUSCULOSKELETAL: [Back pain from scoliosis LYMPHATICS: None HEMATOLOGICAL: None PSYCHIATRY: None NEUROLOGICAL: None Past medical history to include: Bipolar disorder, ADHD, insomnia, hypertriglyceridemia, chronic lower extremity edema Social history: . Smoking a pack a day for last 34 years. Marijuana regularly. Does vaping Family history: Reviewed, noncontributory to presentation Physical examination: VITAL SIGNS: 98.4, 87, 16, 133/91, 97% room air GENERAL: BMI 35.4, sitting up in bed, but anxious EYES: Pupils equal. Conjunctiva normal. HEENT: External appearance of nose and ears normal, oral cavity grossly normal. NECK: JVD not raised; masses not palpable. HEART: First and second heart sounds are normal; no edema. LUNGS: Respiratory rate normal; clear to auscultation. ABDOMEN: Soft, nontender, liver spleen not palpable, no masses palpable. PSYCH: Alert and oriented x3; mood and affect anxious. NEUROLOGICAL: Cranial nerves grossly intact; no facial asymmetry, power and sensation grossly intact. LYMPHATICS: No lymph nodes palpable in the axilla and neck INVESTIGATIONS, reviewed in the clinical context: March 29: Obesity 9.5 hemoglobin 13 platelets 228 potassium 3.7 creatinine 0.77 AST 37. ALT 52 Troponin I 3 all negative LDL 136 EKG tracing personally reviewed by me: Normal sinus rhythm Chest x-ray film personally reviewed by me-lung montano clear Previous testing: [03/29/2021] Dobutamine stress echocardiogram: Negative for ischemia Assessment and plan: -Anterior chest wall pain. Patient has a negative EKG. Negative troponins. Dobutamine stress echocardiogram, less than a week ago, does not show evidence of ischemia. Telemetry. Cardiology consulted -Obesity BMI 35.9 Weight loss measures -Chronic nicotine dependence, cigarette smoker Nicotine patch -Hypertriglyceridemia On TriCor -Hyperlipidemia Lipitor 20 mg -Chronic idiopathic insomnia On Klonopin -Chronic back pain from scoliosis On meloxicam -Bipolar disorder On Zyprexa, Cymbalta, Klonopin Care was discussed with the patient. She is quite concerned about her cardiac status. I did explain to her that she had a stress test less than a week ago. That makes cardiac ischemic ischemia very likely. Special in the setting of normal EKG and troponins. She is very concerned about this being a cardiac issue, and is wanting a cardiac catheterization. I did explain that this comes with inherint risk. She seems to be quite adamant about making sure this not cardiac. She has a follow-up appointment with Dr. Ryan Lancaster. I did discuss with Dr. Jed Del Rosario from cardiology. Does not feel this to be cardiac. We'll ambulate the patient, keep the patient on telemetry see how she does. Past Medical History Past Medical History: No Reported History Additional Past Medical History / Comment(s): Bipolar disorder, anxiety, depression, ADHD History of Any Multi-Drug Resistant Organisms: None Reported Past Surgical History: Section, Hysterectomy Additional Past Surgical History / Comment(s): 2 sections, 5 cysts removed Past Anesthesia/Blood Transfusion Reactions: No Reported Reaction Past Psychological History: Anxiety, Bipolar, Depression Smoking Status: Current every day smoker, Vaper Past Alcohol Use History: None Reported Past Drug Use History: Marijuana - Past Family History Mother Family Medical History: No Reported History Medications and Allergies Home Medications Medication Instructions Recorded Confirmed Type DULoxetine HCL [Cymbalta] 60 mg PO BID 01/21/21 03/29/21 History Methylphenidate HCl 20 mg PO TID 02/18/21 03/29/21 History clonazePAM 2 mg PO BID 02/18/21 03/29/21 History traZODone HCL 100 mg PO HS 02/18/21 03/29/21 History Furosemide [Lasix] 40 mg PO BID #6 tablet 02/19/21 03/29/21 Rx Fenofibrate Nanocrystallized 145 mg PO DAILY 03/23/21 03/29/21 History [Fenofibrate] Meloxicam 15 mg PO DAILY 03/23/21 03/29/21 History OLANZapine [ZyPREXA] 10 mg PO DAILY 03/23/21 03/29/21 History Aspirin 81 mg PO DAILY #30 chewable 03/24/21 03/29/21 Rx Atorvastatin Calcium [Lipitor] 20 mg PO HS #30 tab 03/24/21 03/29/21 Rx Nicotine 21Mg/24Hr Patch [Habitrol] 1 patch TRANSDERM DAILY #30 patch 03/24/21 03/29/21 Rx Nitroglycerin Sl Tabs [Nitrostat] 0.4 mg SUBLINGUAL Q5M PRN #30 tab 03/24/21 03/29/21 Rx Allergies Allergy/AdvReac Type Severity Reaction Status Date / Time lurasidone [From Latuda] Allergy Rash/Hives Verified 03/29/21 23:03 Physical Exam Vitals: Vital Signs Temp Pulse Pulse Pulse Resp BP BP 03/30/21 07:00 98.4 F 87 16 133/91 03/30/21 00:58 98.1 F 88 18 132/88 03/30/21 00:36 98.6 F 90 18 138/83 03/29/21 22:35 98.5 F 94 18 147/86 03/29/21 21:35 98.1 F 86 16 132/88 03/29/21 21:00 92 18 102/79 03/29/21 19:47 98.6 F 94 16 151/88 Pulse Ox 03/30/21 07:00 97 03/30/21 00:58 97 03/30/21 00:36 97 03/29/21 22:35 96 03/29/21 21:35 96 03/29/21 21:00 97 03/29/21 19:47 98 Intake and Output 03/29/21 03/30/21 03/30/21 22:59 06:59 14:59 Other: # Voids 1 Weight 90.718 kg Results CBC & Chem 7: 03/29/21 20:15 03/29/21 20:15 Labs: Abnormal Lab Results - Last 24 Hours (Table) 03/29/21 Range/Units 20:15 BUN 18 H (7-17) mg/dL Glucose 131 H (74-99) mg/dL AST 37 H (14-36) U/L ALT 52 H (4-34) U/L Thrombosis Risk Factor Assmnt - Choose All That Apply Any of the Below Risk Factors Present?: No Other Risk Factors: No Other congenital or acquired thrombophilia - If yes, enter type in comment: No Thrombosis Risk Factor Assessment Level: Very Low Risk
[2021-03-30] MEDS ORDERED: traZODone HCL 100 MG TAB PO SCH (21:00)
[2021-03-30] MEDS ORDERED: ATORVASTATIN 20 MG TAB PO SCH (21:00)
[2021-03-31] MEDS: METHYLPHENIDATE HCL 10 MG TAB PO SCH (01:18)
[2021-03-31] MEDS: FUROSEMIDE 40 MG TAB PO SCH (07:52)
[2021-03-31] MEDS: DULoxetine HCL 60 MG CAPSULE.DR PO SCH (07:52)
[2021-03-31] MEDS: clonazePAM 1 MG TAB PO SCH (07:52)
[2021-03-31] MEDS: NICOTINE 21MG/24HR PATCH TRANSDERM SCH (07:52)
[2021-03-31] MEDS: MELOXICAM 7.5 MG TAB PO SCH (07:53)
[2021-03-31] MEDS: FENOFIBRATE 160 MG TAB PO SCH (07:53)
[2021-03-31] MEDS: MORPHINE SULFATE 4 MG/ML SYRINGE IV PRN (07:54)
[2021-03-31] MEDS: OLANZapine 10 MG TAB PO SCH (07:54)
[2021-03-31] MEDS: PANTOPRAZOLE 40 MG TABLET PO SCH (07:54)
[2021-03-31 07:55] VITALS: BP 118/84; PULSE 106; TEMP 97.9
--- NOTE | 2021-03-31 11:08 | P.PN ---
Subjective HISTORY OF PRESENTING ILLNESS This is a pleasant 45-year-old female past medical history significant for anxiety, bipolar, depression, recently diagnosed dyslipidemia and chronic nicotine dependence. She denies prior history of coronary artery disease and does not follow in the office with a drug room clerk. We have been asked to see in consultation for chest pain. She was seen here in the observation unit for chest pain last week and underwent dobutamine stress echocardiogram that was negative for stress-induced cardiac ischemia. She states upon discharge she was chest pain-free however shortly after arriving home she again developed chest discomfort described as a heavy pressure sensation like a ton of bricks sitting on her chest. The discomfort has been constant since according to the patient. There is no radiation to the arm, back, neck or jaw. There is no associated shortness of breath, dizziness, palpitations, nausea, vomiting or diaphoresis. The pain is not exacerbated by movement of her arms or shoulders. It is not reproducible on exam. It is not exacerbated by activity or exertion. 03/31/2021 Patient seen and examined resting comfortably laying flat in bed in no acute distress. She continues to have ongoing chest discomfort in the midsternal region. She has been up and ambulating and states her pain stays the same. It does not improve and it does not get worse. There is no radiation to the arm, back, neck or jaw. She denies associated shortness of breath, dizziness, palpitations, nausea, vomiting or diaphoresis. Blood pressure 118/84 heart rate 106 afebrile maintaining oxygen saturation on room air. Telemetry tracings reveal persistent sinus mechanism with no acute arrhythmia or significant pauses. PHYSICAL EXAMINATION CONSTITUTIONAL: No apparent distress. HEENT: Head is normocephalic. Pupils are equal, round. Sclerae anicteric. Mucous membranes of the mouth are moist. No JVD. No carotid bruit. CHEST EXAMINATION: Lungs are clear to auscultation. No chest wall tenderness is noted on palpation or with deep breathing. HEART EXAMINATION: Regular rate and rhythm. S1, S2 heard. No murmurs, gallops or rub. EXTREMITIES: 2+ peripheral pulses, no lower extremity edema and no calf tenderness. ASSESSMENT Chest pain, atypical Dyslipidemia Psychiatric illness Chronic nicotine dependence PLAN Recent stress testing again reviewed with the patient in great detail. Her pain is atypical and unlikely to be related to ischemia given her normal EKGs, normal cardiac enzymes, normal stress test and atypical features. She can be discharged home to follow-up in the office with Dr. Lancaster, an appointment has been made in the office for next week. Nurse Practitioner note has been reviewed, I agree with a documented findings and plan of care. Patient was seen and examined. Objective - Vital Signs Vital signs: Vital Signs Temp 97.9 F 03/31/21 07:00 Pulse 106 H 03/31/21 07:00 Resp 16 03/31/21 07:00 BP 118/84 03/31/21 07:00 Pulse Ox 95 03/31/21 07:00 Intake & Output 03/30/21 03/31/21 03/31/21 18:59 06:59 18:59 Other: Voiding Method Toilet # Voids 2 - Labs CBC & Chem 7: 03/29/21 20:15 03/29/21 20:15
--- NOTE | 2021-03-31 23:45 | P.DS ---
Providers Date of admission: 03/29/21 21:24 Expected date of discharge: 03/31/21 Attending physician: Filemon Be Consults: 03/29/21 21:37 Consult Physician Stat Consulting Provider: Jeronimo Carlos Consult Reason/Comments: Anginal chest pain Do you want consulting provider notified?: Yes, Notify in am Primary care physician: Marlon Almanza [facility] Course: Chief Complaint: Chest pain History of presenting complaint: This is a pleasant 45-year-old patient of Dr. Marlon Almanza. Chronic stable medical conditions include bipolar disorder, ADHD, scoliosis causing back pain, hypertriglyceridemia, chronic insomnia. Patient was just in the hospital from March 23 through March 24. Presented with chest pain. Dobutamine stress echocardiogram was negative. Patient is due to follow-up with Dr. Ryan Lancaster. Patient did 2 hours of swimming yesterday. Following that she developed pressure in the upper part of the chest around 7 PM. Last most of the day. She was dizzy, lightheaded, did break out in a sweat. Also short of breath. And decided to come in. She is quite concerned about cardiac status. March 31: Patient is seen by cardiology Dr. Jed Schultz. Not felt to be cardiac. Patient will follow-up with Dr. Ryan Lancaster. Being discharged Consultation: Dr. Jed Del Rosario from cardiology Past medical history to include: Bipolar disorder, ADHD, insomnia, hypertriglyceridemia, chronic lower extremity edema Social history: . Smoking a pack a day for last 34 years. Marijuana regularly. Does vaping Family history: Reviewed, noncontributory to presentation Physical examination: VITAL SIGNS: 97.9, 100, 16, 11 8 x 84, 95% room air GENERAL: BMI 35.4, sitting up in bed, anxious EYES: Pupils equal. Conjunctiva normal. HEENT: External appearance of nose and ears normal, oral cavity grossly normal. NECK: JVD not raised; masses not palpable. HEART: First and second heart sounds are normal; no edema. LUNGS: Respiratory rate normal; clear to auscultation. ABDOMEN: Soft, nontender, liver spleen not palpable, no masses palpable. PSYCH: Alert and oriented x3; mood and affect anxious. INVESTIGATIONS, reviewed in the clinical context: March 29: Obesity 9.5 hemoglobin 13 platelets 228 potassium 3.7 creatinine 0.77 AST 37. ALT 52 Troponin I 3 all negative LDL 136 EKG tracing personally reviewed by me: Normal sinus rhythm Chest x-ray film personally reviewed by me-lung montano clear Previous testing: [03/29/2021] Dobutamine stress echocardiogram: Negative for ischemia Assessment and plan: -Anterior chest wall pain. Patient has a negative EKG. Negative troponins. Dobutamine stress echocardiogram, less than a week ago, does not show evidence of ischemia. Possibly psychosomatic. Patient was seen by cardiology. Cleared for discharge. -Obesity BMI 35.9 Weight loss measures -Chronic nicotine dependence, cigarette smoker Nicotine patch -Hypertriglyceridemia On TriCor -Hyperlipidemia Lipitor 20 mg -Chronic idiopathic insomnia On Klonopin -Chronic back pain from scoliosis On meloxicam -Bipolar disorder On Zyprexa, Cymbalta, Klonopin -Social issues at home. shared services and outsourcing manager is given resources for the patient to follow up with Disposition: Home Patient Condition at Discharge: Stable Plan - Discharge Summary New Discharge Prescriptions: New Famotidine [Pepcid] 20 mg PO BID #60 tablet Continue clonazePAM 2 mg PO BID Aspirin 81 mg PO DAILY #30 chewable Nitroglycerin Sl Tabs [Nitrostat] 0.4 mg SUBLINGUAL Q5M PRN #30 tab PRN Reason: Chest Pain Atorvastatin Calcium [Lipitor] 20 mg PO HS #30 tab Nicotine 21Mg/24Hr Patch [Habitrol] 1 patch TRANSDERM DAILY #14 patch DULoxetine HCL [Cymbalta] 60 mg PO BID Methylphenidate HCl 20 mg PO TID traZODone HCL 100 mg PO HS Furosemide [Lasix] 40 mg PO BID #6 tablet OLANZapine [ZyPREXA] 10 mg PO DAILY Meloxicam 15 mg PO DAILY Fenofibrate Nanocrystallized [Fenofibrate] 145 mg PO DAILY Discharge Medication List DULoxetine HCL [Cymbalta] 60 mg PO BID 01/21/21 [History] Methylphenidate HCl 20 mg PO TID 02/18/21 [History] clonazePAM 2 mg PO BID 02/18/21 [History] traZODone HCL 100 mg PO HS 02/18/21 [History] Furosemide [Lasix] 40 mg PO BID #6 tablet 02/19/21 [Rx] Fenofibrate Nanocrystallized [Fenofibrate] 145 mg PO DAILY 03/23/21 [History] Meloxicam 15 mg PO DAILY 03/23/21 [History] OLANZapine [ZyPREXA] 10 mg PO DAILY 03/23/21 [History] Aspirin 81 mg PO DAILY #30 chewable 03/24/21 [Rx] Atorvastatin Calcium [Lipitor] 20 mg PO HS #30 tab 03/24/21 [Rx] Nitroglycerin Sl Tabs [Nitrostat] 0.4 mg SUBLINGUAL Q5M PRN #30 tab 03/24/21 [Rx] Famotidine [Pepcid] 20 mg PO BID #60 tablet 03/31/21 [Rx] Nicotine 21Mg/24Hr Patch [Habitrol] 1 patch TRANSDERM DAILY #14 patch 03/31/21 [Rx] Follow up Appointment(s)/Referral(s): Bryan Lancaster MD [STAFF PHYSICIAN] - 04/08/21 11:15 am Raeann Almanza NPC [REFERRING] - 1 Week Patient Instructions/Handouts: Chest Pain (GEN) Discharge Disposition: HOME SELF-CARE
== END 2021-03-31 10:56 | disposition home or self-care (01) ==
LOC: EC 19:46 → 6NMEDSUR 21:24
PROVIDERS: ADMIT Hospitalist; ATTEND Hospitalist
DX: R07.89 Other chest pain (principal); R06.02 Shortness of breath; R42 Dizziness and giddiness; R61 Generalized hyperhidrosis; E78.5 Hyperlipidemia, unspecified; E78.1 Pure hyperglyceridemia; F51.01 Primary insomnia; F31.9 Bipolar disorder, unspecified; F41.9 Anxiety disorder, unspecified; F90.9 Attention-deficit hyperactivity disorder, unspecified type; G89.29 Other chronic pain; M54.9 Dorsalgia, unspecified; M41.9 Scoliosis, unspecified; F17.210 Nicotine dependence, cigarettes, uncomplicated; F17.290 Nicotine dependence, other tobacco product, uncomplicated; E66.9 Obesity, unspecified; Z68.35 Body mass index [BMI] 35.0-35.9, adult; Z79.1 Long term (current) use of non-steroidal anti-inflammatories (NSAID); Z79.82 Long term (current) use of aspirin; Z79.899 Other long term (current) drug therapy; Z88.8 Allergy status to other drugs, medicaments and biological substances; Z90.710 Acquired absence of both cervix and uterus; Z98.891 History of uterine scar from previous surgery; Z98.890 Other specified postprocedural states; Z86.79 Personal history of other diseases of the circulatory system
CPT/HCPCS: 96376 ×2; 93005 ×2; 96374; 99285; 36415; 80053; 83735; 84484 ×2; 85025; 85610; 85730; 71046; G0378 ×3; S4990 ×2; J2270 ×3

== ENCOUNTER 2021-06-09 21:20 | Emergency (ER) | payer MEDICARE, OTHER ==
[2021-06-09 21:55] VITALS: BP 127/79; RESP 18; TEMP 98.4
--- NOTE | 2021-06-09 22:22 | XR ---
EXAMINATION TYPE: XR chest 2V DATE OF EXAM: 06/09/2021 COMPARISON: 03/29/2021 HISTORY: Cough TECHNIQUE: FINDINGS: Heart and mediastinum are normal. Lungs are clear. Diaphragm is normal. Bony thorax appears normal. IMPRESSION: Normal chest. No change.
[2021-06-09] MEDS ORDERED: IPRATROPIUM-ALBUTEROL 3 ML NEB INHALATION STA (22:43)
--- NOTE | 2021-06-09 22:48 | ED ---
General Adult HPI - General Chief complaint: Upper Respiratory Infection Stated complaint: Cough, SOB Time Seen by Provider: 06/09/21 22:32 Source: patient, RN notes reviewed, old records reviewed Mode of arrival: ambulatory - History of Present Illness Initial comments: This is a well-appearing 45-year-old female who presents to the emergency room with 2 days of cough and congestion. She states that she has been taking Mucinex which is helped with the secretions. She states that she did have a sore throat which has resolved. She did have one episode of diarrhea today. She denies any vomiting or fevers. She has a pack-a-day smoker. She does have a history of bipolar, anxiety and ADHD depression. She's had no sick contacts. -: days(s) (2) Severity scale (1-10): 2 Consistency: now resolved Improves with: none Worsens with: other (cough) Associated Symptoms: cough Treatments Prior to Arrival: none - Related Data Home Medications Medication Instructions Recorded Confirmed DULoxetine HCL [Cymbalta] 60 mg PO BID 01/21/21 03/29/21 Methylphenidate HCl 20 mg PO TID 02/18/21 03/29/21 clonazePAM 2 mg PO BID 02/18/21 03/29/21 traZODone HCL 100 mg PO HS 02/18/21 03/29/21 Fenofibrate Nanocrystallized 145 mg PO DAILY 03/23/21 03/29/21 [Fenofibrate] Meloxicam 15 mg PO DAILY 03/23/21 03/29/21 OLANZapine [ZyPREXA] 10 mg PO DAILY 03/23/21 03/29/21 Previous Rx's Medication Instructions Recorded Furosemide [Lasix] 40 mg PO BID #6 tablet 02/19/21 Aspirin 81 mg PO DAILY #30 chewable 03/24/21 Atorvastatin Calcium [Lipitor] 20 mg PO HS #30 tab 03/24/21 Nitroglycerin Sl Tabs [Nitrostat] 0.4 mg SUBLINGUAL Q5M PRN #30 tab 03/24/21 Famotidine [Pepcid] 20 mg PO BID #60 tablet 03/31/21 Nicotine 21Mg/24Hr Patch [Habitrol] 1 patch TRANSDERM DAILY #14 patch 03/31/21 predniSONE 50 mg PO DAILY #5 tab 06/09/21 Allergies Allergy/AdvReac Type Severity Reaction Status Date / Time lurasidone [From Latuda] Allergy Rash/Hives Verified 03/29/21 23:03 Review of Systems ROS Statement: Those systems with pertinent positive or pertinent negative responses have been documented in the HPI. ROS Other: All systems not noted in ROS Statement are negative. Past Medical History Past Medical History: No Reported History Additional Past Medical History / Comment(s): Bipolar disorder, anxiety, depression, ADHD History of Any Multi-Drug Resistant Organisms: None Reported Past Surgical History: Section, Hysterectomy Additional Past Surgical History / Comment(s): 2 sections, 5 cysts removed Past Anesthesia/Blood Transfusion Reactions: No Reported Reaction Past Psychological History: Anxiety, Bipolar, Depression Smoking Status: Current every day smoker, Vaper Past Alcohol Use History: None Reported Past Drug Use History: Marijuana - Past Family History Mother Family Medical History: No Reported History General Exam General appearance: alert, in no apparent distress Head exam: Present: atraumatic, normocephalic, normal inspection Eye exam: Present: normal appearance, PERRL, EOMI. Absent: scleral icterus, conjunctival injection, periorbital swelling ENT exam: Present: normal exam, normal oropharynx, mucous membranes moist Neck exam: Present: normal inspection, full ROM. Absent: tenderness, meningismus, lymphadenopathy, thyromegaly Respiratory exam: Present: wheezes. Absent: chest wall tenderness, accessory muscle use, decreased breath sounds Cardiovascular Exam: Present: regular rate, normal rhythm, normal heart sounds. Absent: systolic murmur, diastolic murmur, rubs, gallop, clicks, JVD GI/Abdominal exam: Present: soft, normal bowel sounds. Absent: distended, tenderness, guarding, rebound, rigid Neurological exam: Present: alert, oriented X3 Psychiatric exam: Present: normal affect, normal mood Skin exam: Present: warm, dry, intact, normal color. Absent: rash, cyanosis, diaphoretic Course Vital Signs 06/09/21 06/09/21 06/09/21 21:52 22:56 23:03 Temperature 98.4 F Pulse Rate 77 74 72 Respiratory 18 Rate Blood Pressure 127/79 O2 Sat by Pulse 96 Oximetry Medical Decision Making - Medical Decision Making This is a well-appearing patient presents to the emergency room with cough and congestion for 2 days. She denies any fevers. She states she does smoke a pack of cigarettes a day. Her covid test today is negative and her chest x-ray is negative for any acute cardiopulmonary process. She did have some inspiratory and expiratory wheezes bilaterally and was given a DuoNeb treatment. Patient left the emergency room for reassessment. Prior to treatment her oxygen saturation is 96% on room air. Case discussed with - Lab Data Lab Results 06/09/21 Range/Units 21:57 Coronavirus (PCR) Not Detected (Not Detectd) Disposition Clinical Impression: Cough Disposition: HOME SELF-CARE Condition: Good Instructions (If sedation given, give patient instructions): Wheezing (ED) Additional Instructions: Increase your fluid intake, continue to take Mucinex for congestion. Decrease his cigarette smoking. Follow-up with the primary care doctor in 1 week. Return to the emergency room with any new or worsening symptoms including chest pain, difficulty breathing or fevers. Prescriptions: predniSONE 50 mg PO DAILY #5 tab Is patient prescribed a controlled substance at d/c from ED?: No Referrals: Marlon Almanza MD [Primary Care Provider] - 1-2 days Time of Disposition: 23:18
[2021-06-09 23:04] VITALS: PULSE 72
== END 2021-06-09 23:10 | disposition home or self-care (01) ==
LOC: EC 21:20
DX: R05 Cough (principal); R06.02 Shortness of breath; R09.81 Nasal congestion; R19.7 Diarrhea, unspecified; F31.9 Bipolar disorder, unspecified; F17.210 Nicotine dependence, cigarettes, uncomplicated; Z20.822 Contact with and (suspected) exposure to COVID-19; Z88.8 Allergy status to other drugs, medicaments and biological substances; Z79.899 Other long term (current) drug therapy
CPT/HCPCS: 71046; 87635; 94640; 99285

== ENCOUNTER 2021-07-15 20:27 | Emergency (ER) | payer MEDICARE, OTHER ==
[2021-07-15 21:36] VITALS: BP 168/96; PULSE 96; RESP 20; TEMP 98.7
[2021-07-15] MEDS ORDERED: Acetaminophen-Codeine 300-30mg TAB PO STA (23:01)
[2021-07-15] MEDS ORDERED: SULFAMETHOX-TMP 800-160MG 1 EACH TAB PO STA (23:01)
--- NOTE | 2021-07-15 23:01 | ED ---
Skin/Abscess/FB HPI - General Chief complaint: Skin/Abscess/Foreign Body Stated complaint: Abscess in groin area Time Seen by Provider: 07/15/21 22:10 Source: patient, RN notes reviewed, old records reviewed Mode of arrival: ambulatory Limitations: no limitations - History of Present Illness Initial comments: This is a 45-year-old female to the emergency room today. She is presented today for evaluation regards to groin abscess or infection with history of same. Patient is otherwise no new complaints no fevers no dysuria no nausea vomiting diarrhea or abdominal pain. Patient states symptoms 2 days getting progressively worse with swelling and pain which MD complaint: abscess/boil -: days(s) (2) Location: buttocks, genitals Severity: moderate Severity scale (1-10): 6 Quality: sharp Consistency: constant Improves with: none Worsens with: none Context: none Associated symptoms: denies other symptoms Treatments Prior to Arrival: none - Related Data Home Medications Medication Instructions Recorded Confirmed DULoxetine HCL [Cymbalta] 60 mg PO BID 01/21/21 03/29/21 Methylphenidate HCl 20 mg PO TID 02/18/21 03/29/21 clonazePAM 2 mg PO BID 02/18/21 03/29/21 traZODone HCL 100 mg PO HS 02/18/21 03/29/21 Fenofibrate Nanocrystallized 145 mg PO DAILY 03/23/21 03/29/21 [Fenofibrate] Meloxicam 15 mg PO DAILY 03/23/21 03/29/21 OLANZapine [ZyPREXA] 10 mg PO DAILY 03/23/21 03/29/21 Previous Rx's Medication Instructions Recorded Furosemide [Lasix] 40 mg PO BID #6 tablet 02/19/21 Aspirin 81 mg PO DAILY #30 chewable 03/24/21 Atorvastatin Calcium [Lipitor] 20 mg PO HS #30 tab 03/24/21 Nitroglycerin Sl Tabs [Nitrostat] 0.4 mg SUBLINGUAL Q5M PRN #30 tab 03/24/21 Famotidine [Pepcid] 20 mg PO BID #60 tablet 03/31/21 Nicotine 21Mg/24Hr Patch [Habitrol] 1 patch TRANSDERM DAILY #14 patch 03/31/21 predniSONE 50 mg PO DAILY #5 tab 06/09/21 Sulfamethox-Tmp 800-160Mg [Bactrim 2 tab PO Q12HR #28 tab 07/15/21 DS 800-160 mg] Allergies Allergy/AdvReac Type Severity Reaction Status Date / Time lurasidone [From Latuda] Allergy Rash/Hives Verified 07/15/21 21:33 Review of Systems ROS Statement: Those systems with pertinent positive or pertinent negative responses have been documented in the HPI. ROS Other: All systems not noted in ROS Statement are negative. Past Medical History Past Medical History: No Reported History Additional Past Medical History / Comment(s): Bipolar disorder, anxiety, depression, ADHD History of Any Multi-Drug Resistant Organisms: None Reported Past Surgical History: Section, Hysterectomy Additional Past Surgical History / Comment(s): 2 sections, 5 cysts removed Past Anesthesia/Blood Transfusion Reactions: No Reported Reaction Past Psychological History: Anxiety, Bipolar, Depression Smoking Status: Current every day smoker, Vaper Past Alcohol Use History: None Reported Past Drug Use History: Marijuana - Past Family History Mother Family Medical History: No Reported History General Exam Limitations: no limitations General appearance: alert, in no apparent distress Head exam: Present: atraumatic, normocephalic, normal inspection Eye exam: Present: normal appearance, PERRL, EOMI. Absent: scleral icterus, conjunctival injection, periorbital swelling ENT exam: Present: normal exam, mucous membranes moist Neck exam: Present: normal inspection. Absent: tenderness, meningismus, lymphadenopathy Respiratory exam: Present: normal lung sounds bilaterally. Absent: respiratory distress, wheezes, rales, rhonchi, stridor Cardiovascular Exam: Present: regular rate, normal rhythm, normal heart sounds. Absent: systolic murmur, diastolic murmur, rubs, gallop, clicks GI/Abdominal exam: Present: soft, normal bowel sounds. Absent: distended, tenderness, guarding, rebound, rigid External exam: Present: normal external exam (Patient does have abscess to left upper thigh groin area) Extremities exam: Present: normal inspection, full ROM, normal capillary refill. Absent: tenderness, pedal edema, joint swelling, calf tenderness Back exam: Present: normal inspection Neurological exam: Present: alert, oriented X3, CN II-XII intact Psychiatric exam: Present: normal affect, normal mood Skin exam: Present: warm, dry, intact, normal color. Absent: rash Course Vital Signs 07/15/21 21:34 Temperature 98.7 F Pulse Rate 96 Respiratory 20 Rate Blood Pressure 168/96 O2 Sat by Pulse 97 Oximetry - Reevaluation(s) Reevaluation #1: 07/16/21 02:03 Medical record is reviewed Reevaluation #2: 07/16/21 02:03 Symptoms resolved after incision and drainage Reevaluation #3: 07/16/21 02:04 Patient is informed results and questions answered Procedures - Incision & Drainage Consent Obtained: verbal consent Site: vulva/vagina, lower extremity Anesthetic Used: lidocaine 1%, with epi I&D Cleaning Method: Chloroprep Sterile Field Used?: Yes Scalpel Used: #11 Needle Aspiration Performed?: No I&D Drainage Obtained: Pus Culture Obtained?: No Patient Tolerated Procedure: well Medical Decision Making - Medical Decision Making Auty 5 female with groin abscess likely ingrown hair with abscess. Incision and drainage is placed patient has resolution of symptoms and can be discharged Disposition Clinical Impression: Abscess of groin, left Disposition: HOME SELF-CARE Condition: Good Instructions (If sedation given, give patient instructions): Abscess Incision and Drainage (ED), Abscess (ED) Prescriptions: Sulfamethox-Tmp 800-160Mg [Bactrim DS 800-160 mg] 2 tab PO Q12HR #28 tab Is patient prescribed a controlled substance at d/c from ED?: No Referrals: Marlon Almanza MD [Primary Care Provider] - 1-2 days
== END 2021-07-15 23:27 | disposition home or self-care (01) ==
LOC: EC 20:27
DX: L02.214 Cutaneous abscess of groin (principal); F17.290 Nicotine dependence, other tobacco product, uncomplicated; Z88.8 Allergy status to other drugs, medicaments and biological substances
CPT/HCPCS: 10060; 99282

== ENCOUNTER 2021-07-22 16:05 | Emergency (ER) | payer MEDICARE, OTHER ==
[2021-07-22] MEDS ORDERED: KETOROLAC 15 MG/ML 1 ML VIAL IVP STA (16:39)
--- NOTE | 2021-07-22 16:54 | ED ---
Chest Pain HPI - General Chief Complaint: Chest Pain Stated Complaint: chest pain Time Seen by Provider: 07/22/21 16:15 Source: patient Mode of arrival: wheelchair Limitations: no limitations - History of Present Illness Initial Comments: Patient is a 45 year old female with past medical history of bipolar disorder, ADHD who presents emergency Department with reported chest pain. She states that the pain has been present for approximately one hour. Denies any provocative factors. States that it is worse with deep inspiration. Is located over the left side of her chest without radiation. Admits to nausea without vomiting. No shortness of breath. Denies previous history of cardiac disease. States that she's had this chest pain twice in the past and was evaluated at the hospital with admission. Had a echo performed and a stress test 6 months ago which was normal. Denies strong family history of cardiac disease. No infectious symptoms to include cough, fevers or chills. No lower extremity swelling. No other alleviating, precipitating or modifying factors - Related Data Home Medications Medication Instructions Recorded Confirmed DULoxetine HCL [Cymbalta] 60 mg PO DAILY 01/21/21 07/22/21 Methylphenidate HCl 20 mg PO BID 02/18/21 07/22/21 clonazePAM 2 mg PO TID PRN 02/18/21 07/22/21 Fenofibrate Nanocrystallized 145 mg PO DAILY 03/23/21 07/22/21 [Fenofibrate] Meloxicam 15 mg PO DAILY 03/23/21 07/22/21 Famotidine [Pepcid] 20 mg PO BID PRN 07/22/21 07/22/21 tiZANidine HCL 2 mg PO QID PRN 07/22/21 07/22/21 traZODone HCL 150 mg PO HS 07/22/21 07/22/21 Previous Rx's Medication Instructions Recorded Furosemide [Lasix] 40 mg PO BID #6 tablet 02/19/21 Aspirin 81 mg PO DAILY #30 chewable 03/24/21 Nitroglycerin Sl Tabs [Nitrostat] 0.4 mg SUBLINGUAL Q5M PRN #30 tab 03/24/21 Sulfamethox-Tmp 800-160Mg [Bactrim 2 tab PO Q12HR #28 tab 07/15/21 DS 800-160 mg] Allergies Allergy/AdvReac Type Severity Reaction Status Date / Time lurasidone [From Latuda] Allergy Rash/Hives Verified 07/22/21 16:56 Review of Systems ROS Statement: Those systems with pertinent positive or pertinent negative responses have been documented in the HPI. ROS Other: All systems not noted in ROS Statement are negative. EKG Findings - EKG Comments: EKG Findings:: EKG demonstrates a sinus rhythm with a ventricular rate of 99. ID interval 124. QRS 80. QTC of 418. No acute ST segment elevations or depressions. Q wave in lead 3. Past Medical History Past Medical History: No Reported History Additional Past Medical History / Comment(s): Bipolar disorder, anxiety, depression, ADHD History of Any Multi-Drug Resistant Organisms: None Reported Past Surgical History: Section, Hysterectomy Additional Past Surgical History / Comment(s): 2 sections, 5 cysts removed Past Anesthesia/Blood Transfusion Reactions: No Reported Reaction Past Psychological History: Anxiety, Bipolar, Depression Smoking Status: Current every day smoker, Vaper Past Alcohol Use History: None Reported Past Drug Use History: Marijuana - Past Family History Mother Family Medical History: No Reported History General Exam Limitations: no limitations General appearance: alert, in no apparent distress Head exam: Present: atraumatic, normocephalic, normal inspection Eye exam: Present: normal appearance, PERRL, EOMI. Absent: scleral icterus, conjunctival injection, periorbital swelling ENT exam: Present: normal exam, mucous membranes moist Neck exam: Present: normal inspection. Absent: tenderness, meningismus, lymphadenopathy Respiratory exam: Present: normal lung sounds bilaterally. Absent: respiratory distress, wheezes, rales, rhonchi, stridor Cardiovascular Exam: Present: normal rhythm, tachycardia, normal heart sounds. Absent: systolic murmur, diastolic murmur, rubs, gallop, clicks GI/Abdominal exam: Present: soft, normal bowel sounds. Absent: distended, tenderness, guarding, rebound, rigid Extremities exam: Present: normal inspection, full ROM, normal capillary refill. Absent: tenderness, pedal edema, joint swelling, calf tenderness Back exam: Present: normal inspection Neurological exam: Present: alert, oriented X3, CN II-XII intact Psychiatric exam: Present: normal affect, normal mood Skin exam: Present: warm, dry, intact, normal color. Absent: rash Course Vital Signs 07/22/21 07/22/21 07/22/21 16:15 17:56 18:20 Temperature 98.2 F 98.3 F Pulse Rate 107 H 80 92 Respiratory 20 16 19 Rate Blood Pressure 147/94 147/99 142/95 O2 Sat by Pulse 99 97 98 Oximetry Chest Pain MDM - MDM Upon arrival patient is placed into room 3. There are history and physical exam was performed. IV is established and laboratory studies were conducted and reviewed. Troponin is negative. D-dimer is negative. Chest x-ray demonstrates no acute process. Patient has been hospitalized twice this year for chest pain which was diagnosed as nontypical chest pain by cardiology. 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 I did recommend that the patient be discharged home and follow-up with her primary care doctor within 2-4 days for reevaluation. Return to the emergency room for any new or worsening symptoms. Patient agreed to treatment plan and was discharged home in stable condition Disposition Clinical Impression: Chest pain Disposition: HOME SELF-CARE Condition: Stable Instructions (If sedation given, give patient instructions): Chest Pain (ED) Additional Instructions: Please follow-up with your primary care doctor in 2-4 days for further evaluation. Return to the emergency room for any new or worsening symptoms Is patient prescribed a controlled substance at d/c from ED?: No Referrals: Marlon Almanza MD [Primary Care Provider] - 1-2 days [facility] [Provider Group] - 1-2 days Time of Disposition: 18:10
[2021-07-22 17:03] LABS: Basophils # (A) 0.1 k/uL (0-0.2); Basophils % (A) 1 %; Eosinophils # (A) 0.2 k/uL (0-0.7); Eosinophils % (A) 2 %; HCT 47.2 % (34.0-46.0); HGB 16.4 gm/dL (11.4-16.0); Lymphocytes # (A) 3.8 k/uL (1.0-4.8); Lymphocytes % (A) 35 %; MCH 32.7 pg (25.0-35.0); MCHC 34.7 g/dL (31.0-37.0); MCV 94.4 fL (80.0-100.0); Mean Platelet Volume 10.2; Monocytes # (A) 0.7 k/uL (0-1.0); Monocytes % (A) 6 %; Neutrophils % (A) 55 %; Platelet Count 288 k/uL (150-450); RBC 5.01 m/uL (3.80-5.40); RDW 13.5 % (11.5-15.5); WBC 10.8 k/uL (3.8-10.6)
[2021-07-22 17:16] LABS: Potassium 3.6 mmol/L (3.5-5.1)
[2021-07-22 17:17] LABS: ALT 46 U/L (4-34); AST 37 U/L (14-36); African American GFR (CKD) >90 (>60 ml/min/1.73 sqM); Albumin 4.6 g/dL (3.5-5.0); Alkaline Phosphatase 105 U/L (38-126); Anion Gap 10 mmol/L; Blood Urea Nitrogen 9 mg/dL (7-17); Carbon Dioxide 26 mmol/L (22-30); Chloride 102 mmol/L (98-107); Glucose 104 mg/dL (74-99); Lipase 63 U/L (23-300); Non-African American GFR(CKD) >90 (>60 ml/min/1.73 sqM); Sodium 138 mmol/L (137-145); Total Bilirubin 0.5 mg/dL (0.2-1.3); Total Protein 7.6 g/dL (6.3-8.2)
[2021-07-22 17:22] LABS: Partial Thromboplastin Time 24.9 sec (22.0-30.0); Prothrombin Time 10.2 sec (9.0-12.0)
--- NOTE | 2021-07-22 17:56 | XR ---
EXAMINATION TYPE: XR chest 2V DATE OF EXAM: 07/22/2021 COMPARISON: 06/09/2021 HISTORY: Chest pain TECHNIQUE: 2 views FINDINGS: Heart and mediastinum are normal. Lungs are clear. Diaphragm is normal. Bony thorax is inta ct. IMPRESSION: Normal chest. No change.
[2021-07-22 18:24] VITALS: BP 142/95; PULSE 92; RESP 19; TEMP 98.3
== END 2021-07-22 18:24 | disposition home or self-care (01) ==
LOC: EC 16:05
DX: R07.1 Chest pain on breathing (principal); F17.290 Nicotine dependence, other tobacco product, uncomplicated; Z88.8 Allergy status to other drugs, medicaments and biological substances
CPT/HCPCS: 36415; 93005; 85379; 80053; 83690; 83735; 84484; 85025; 85610; 85730; 71046; 96374; 99285; J1885

== ENCOUNTER 2021-08-07 17:56 | Emergency (ER) | payer MEDICARE, OTHER ==
[2021-08-07 18:31] VITALS: TEMP 98.1
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
[2021-08-07 23:14] VITALS: BP 139/96; PULSE 77; RESP 18
== END 2021-08-07 23:18 | disposition home or self-care (01) ==
LOC: EC 17:56
DX: R45.851 Suicidal ideations (principal); F32.A Depression, unspecified; F17.290 Nicotine dependence, other tobacco product, uncomplicated; Z88.8 Allergy status to other drugs, medicaments and biological substances; Z79.899 Other long term (current) drug therapy
CPT/HCPCS: 82075; 99284

== ENCOUNTER 2021-10-31 00:19 | Emergency (ER) | payer MEDICARE, OTHER ==
[2021-10-31 03:32] VITALS: RESP 18
[2021-10-31] MEDS ORDERED: MAG HYDROX/AL HYDROX/SIMETH 30 ML, HYOSCYAMINE ELIXIR 10 ML, LIDOCAINE VISCOUS 2% 10 ML PO STA ×3 (03:59)
--- NOTE | 2021-10-31 04:04 | ED ---
ENT HPI - General Chief complaint: ENT Stated complaint: Sore Throat Time Seen by Provider: 10/31/21 03:22 Source: patient, RN notes reviewed, old records reviewed Mode of arrival: ambulatory Limitations: no limitations - History of Present Illness Initial comments: This is a 45-year-old female to the emergency room today. Patient since today for evaluation regards to sore throat. Patient feels like she may have a foreign body in her throat. Patient states symptoms are for 3 days she has been able to eat or drink she's is having pain in the right side of her neck. Patient has no fevers no difficulty swallowing with pain maybe mildly worse when she swallows. No other complaints MD complaint: sore throat -: days(s) (3) Location: throat Severity: mild Severity scale (1-10): 2 Quality: aching Consistency: intermittent Improves with: none Worsens with: swallowing Associated Symptoms: sore throat - Related Data Home Medications Medication Instructions Recorded Confirmed DULoxetine HCL [Cymbalta] 60 mg PO DAILY 01/21/21 08/07/21 Methylphenidate HCl 20 mg PO BID 02/18/21 08/07/21 clonazePAM 2 mg PO TID PRN 02/18/21 08/07/21 Fenofibrate Nanocrystallized 145 mg PO DAILY 03/23/21 08/07/21 [Fenofibrate] Meloxicam 15 mg PO DAILY 03/23/21 08/07/21 tiZANidine HCL 2 mg PO QID PRN 07/22/21 08/07/21 traZODone HCL 150 mg PO HS 07/22/21 08/07/21 Ibuprofen [Motrin] 800 mg PO Q8H PRN 08/07/21 08/07/21 OLANZapine [ZyPREXA] 2.5 mg PO DAILY 08/07/21 08/07/21 estradioL [estradioL (Once Weekly) 1 patch TRANSDERM SA 08/07/21 08/07/21 0.1mg Patch] Previous Rx's Medication Instructions Recorded Aspirin 81 mg PO DAILY #30 chewable 03/24/21 Nitroglycerin Sl Tabs [Nitrostat] 0.4 mg SUBLINGUAL Q5M PRN #30 tab 03/24/21 Allergies Allergy/AdvReac Type Severity Reaction Status Date / Time lurasidone [From Latuda] Allergy Rash/Hives Verified 10/31/21 00:44 Review of Systems ROS Statement: Those systems with pertinent positive or pertinent negative responses have been documented in the HPI. ROS Other: All systems not noted in ROS Statement are negative. Past Medical History Past Medical History: No Reported History Additional Past Medical History / Comment(s): Bipolar disorder, anxiety, depression, ADHD History of Any Multi-Drug Resistant Organisms: None Reported Past Surgical History: Section, Hysterectomy Additional Past Surgical History / Comment(s): 2 sections, 5 cysts removed Past Anesthesia/Blood Transfusion Reactions: No Reported Reaction Past Psychological History: ADD/ADHD, Anxiety, Bipolar, Depression Smoking Status: Current every day smoker Past Alcohol Use History: None Reported Past Drug Use History: Marijuana - Past Family History Mother Family Medical History: No Reported History General Exam Limitations: no limitations General appearance: alert, in no apparent distress Head exam: Present: atraumatic, normocephalic, normal inspection Eye exam: Present: normal appearance, PERRL, EOMI. Absent: scleral icterus, conjunctival injection, periorbital swelling ENT exam: Present: mucous membranes moist. Absent: normal oropharynx (Mild pharyngeal erythema and bilateral cervical lymphadenopathy) Neck exam: Present: normal inspection. Absent: tenderness, meningismus, lymphadenopathy Respiratory exam: Present: normal lung sounds bilaterally. Absent: respiratory distress, wheezes, rales, rhonchi, stridor Cardiovascular Exam: Present: regular rate, normal rhythm, normal heart sounds. Absent: systolic murmur, diastolic murmur, rubs, gallop, clicks GI/Abdominal exam: Present: soft, normal bowel sounds. Absent: distended, tenderness, guarding, rebound, rigid Extremities exam: Present: normal inspection, full ROM, normal capillary refill. Absent: tenderness, pedal edema, joint swelling, calf tenderness Back exam: Present: normal inspection Neurological exam: Present: alert, oriented X3, CN II-XII intact Psychiatric exam: Present: normal affect, normal mood Skin exam: Present: warm, dry, intact, normal color. Absent: rash Course Vital Signs 10/31/21 10/31/21 00:44 03:29 Temperature 98.0 F Pulse Rate 73 63 Respiratory 16 18 Rate Blood Pressure 124/89 154/98 O2 Sat by Pulse 99 100 Oximetry - Reevaluation(s) Reevaluation #1: 10/31/21 04:34 Medical record is reviewed Reevaluation #2: 10/31/21 04:34 Patient in no acute distress able to eat and drink Reevaluation #3: 10/31/21 04:34 Patient informed results and questions have been answered Medical Decision Making - Medical Decision Making 45 female Janie with sore throat believes she has foreign body form body underneath on exam or x-ray patient does have some lymphadenopathy and erythema to the soft palate of the throat. Patient replacement antibiotics and can be discharged home - Lab Data Lab Results 10/31/21 Range/Units 00:49 Group A Strep Rapid Negative (Negative) Disposition Clinical Impression: Sore throat, Acute pharyngitis Disposition: HOME SELF-CARE Condition: Good Instructions (If sedation given, give patient instructions): Pharyngitis (ED) Is patient prescribed a controlled substance at d/c from ED?: No Referrals: Marlon Almanza MD [Primary Care Provider] - 1-2 days
--- NOTE | 2021-10-31 04:17 | XR ---
EXAMINATION TYPE: XR soft tissue neck DATE OF EXAM: 10/31/2021 COMPARISON: NONE HISTORY: Pain TECHNIQUE: 2 views FINDINGS: The epiglottis is normal. Subglottic trachea appears normal. Tonsils and adenoids are withi n normal limits. Prevertebral soft tissues appear normal. IMPRESSION: Negative cervical soft tissue exam.
[2021-10-31] MEDS ORDERED: AMOXIC-POT CLAV 875MG STARTER PACK 2 TAB BTL PO STA (04:36)
[2021-10-31 06:09] VITALS: BP 152/78; PULSE 78; TEMP 98.9
== END 2021-10-31 06:09 | disposition home or self-care (01) ==
LOC: EC 00:19
DX: J02.9 Acute pharyngitis, unspecified (principal); F17.200 Nicotine dependence, unspecified, uncomplicated; Z20.822 Contact with and (suspected) exposure to COVID-19; Z88.4 Allergy status to anesthetic agent
CPT/HCPCS: 70360; 87081; 87430

== ENCOUNTER 2023-02-17 18:09 | Emergency (ER) | payer MEDICARE, OTHER ==
[2023-02-17 18:40] VITALS: RESP 18
[2023-02-17] MEDS ORDERED: KETOROLAC 15 MG/ML 1 ML VIAL IVP STA (19:04)
[2023-02-17] MEDS ORDERED: FAMOTIDINE 20 MG/2 ML VIAL IV STA (19:04)
[2023-02-17] MEDS ORDERED: ONDANSETRON 4 MG/2 ML VIAL IVP STA (19:04)
[2023-02-17] MEDS ORDERED: SODIUM CHLORIDE 0.9% 1,000 ML IV ONE (19:04)
--- NOTE | 2023-02-17 19:07 | ED ---
General Adult HPI - General Chief complaint: Abdominal Pain Stated complaint: abd pain Time Seen by Provider: 02/17/23 18:51 Source: patient, RN notes reviewed Mode of arrival: ambulatory Limitations: no limitations - History of Present Illness Initial comments: 47-year-old female with no past medical history presents to the emergency department with a chief complaint of abdominal pain. Patient localizes her pain in the right upper quadrant she describes as sharp that is constant. She is complaining of accompanying symptoms of nausea and vomiting and diarrhea. She denies any recent sick contacts. She denies any fevers, cough, sore throat, chest pain, shortness of breath, palpitations. She has not taken anything for his symptoms. She admits to appendectomy. - Related Data Home Medications Medication Instructions Recorded Confirmed DULoxetine HCL [Cymbalta] 60 mg PO DAILY 01/21/21 08/07/21 Methylphenidate HCl 20 mg PO BID 02/18/21 08/07/21 clonazePAM 2 mg PO TID PRN 02/18/21 08/07/21 Fenofibrate Nanocrystallized 145 mg PO DAILY 03/23/21 08/07/21 [Fenofibrate] Meloxicam 15 mg PO DAILY 03/23/21 08/07/21 tiZANidine HCL 2 mg PO QID PRN 07/22/21 08/07/21 traZODone HCL 150 mg PO HS 07/22/21 08/07/21 Ibuprofen [Motrin] 800 mg PO Q8H PRN 08/07/21 08/07/21 OLANZapine [ZyPREXA] 2.5 mg PO DAILY 08/07/21 08/07/21 estradioL [estradioL (Once Weekly) 1 patch TRANSDERM SA 08/07/21 08/07/21 0.1mg Patch] Previous Rx's Medication Instructions Recorded Aspirin 81 mg PO DAILY #30 chewable 03/24/21 Nitroglycerin Sl Tabs [Nitrostat] 0.4 mg SUBLINGUAL Q5M PRN #30 tab 03/24/21 Amoxic-Pot Clav 875-125Mg 1 tab PO Q12HR #20 tablet 10/31/21 [Augmentin 875-125] Metoclopramide [Reglan] 10 mg PO TID PRN #15 tab 02/17/23 Allergies Allergy/AdvReac Type Severity Reaction Status Date / Time lurasidone [From Latuda] Allergy Rash/Hives Verified 02/17/23 18:40 Review of Systems ROS Statement: Those systems with pertinent positive or pertinent negative responses have been documented in the HPI. ROS Other: All systems not noted in ROS Statement are negative. Past Medical History Past Medical History: No Reported History Additional Past Medical History / Comment(s): Bipolar disorder, anxiety, depression, ADHD History of Any Multi-Drug Resistant Organisms: None Reported Past Surgical History: Section, Hysterectomy Additional Past Surgical History / Comment(s): 2 sections, 5 cysts removed Past Anesthesia/Blood Transfusion Reactions: No Reported Reaction Past Psychological History: ADD/ADHD, Anxiety, Bipolar, Depression Smoking Status: Vaper Past Alcohol Use History: None Reported Past Drug Use History: Marijuana - Past Family History Mother Family Medical History: No Reported History General Exam - General Exam Comments Initial Comments: General: Alert, in no acute distress Head: atraumatic normocephalic. Eyes PERRL, EOMI intact, mucous membranes moist Respiratory: Lungs clear to auscultation bilaterally Cardiovascular: Heart rate regular rate and rhythm Abdominal: Soft without guarding or rebound, mild right upper quadrant and epigastric tenderness Extremities: Normal inspection with full range of motion and normal capillary refill Neuroogic: alert and oriented 3, CN II-XII intact, able to ambulate with steady gait Skin: warm dry and intact with normal color Limitations: no limitations Course Vital Signs 02/17/23 02/17/23 02/17/23 18:36 19:48 20:57 Temperature 98.9 F 98.1 F Pulse Rate 101 H 88 92 Respiratory 18 18 Rate Blood Pressure 158/111 150/90 138/93 O2 Sat by Pulse 98 97 96 Oximetry EKG Findings - EKG Comments: EKG Findings:: Interpreted the following: EKG performed at 19:46. CO interval 138, QRS duration 85, Qt/Qtc 345/387 Medical Decision Making - Medical Decision Making Was pt. sent in by a medical professional or institution (, PA, RADIO DIRECTOR, urgent care, hospital, or retirement...) When possible be specific @ -[No] Did you speak to anyone other than the patient for history (EMS, parent, family, police, friend...)? What history was obtained from this source @ -[No] Did you review nursing and triage notes (agree or disagree)? Why? @ -[I reviewed and agree with nursing and triage notes] Were old charts reviewed (outside hosp., previous admission, EMS record, old EKG, old radiological studies, urgent care reports/EKG's, retirement records)? Report findings @ -[No old charts were reviewed] Differential Diagnosis (chest pain, altered mental status, abdominal pain women, abdominal pain men, vaginal bleeding, weakness, fever, dyspnea, syncope, headache, dizziness, GI bleed, back pain, seizure, CVA, palpatations, mental health, musculoskeletal)? @ -[not applicable] EKG interpreted by me (3pts min.). @ -[As above] X-rays interpreted by me (1pt min.). @ -[None done] CT interpreted by me (1pt min.). @ -[None done] U/S interpreted by me (1pt. min.). @ -August the gallbladder does not reveal any cholecystitis or cholelithiasis What testing was considered but not performed or refused? (CT, X-rays, U/S, labs)? Why? @ -[None] What meds were considered but not given or refused? Why? @ -[None] Did you discuss the management of the patient with other professionals (professionals i.e. , PA, RADIO DIRECTOR, lab, RT, psych nurse, social science teacher, feed elevator worker, teacher, third officer, skilled nursing case manager)? Give summary @ -[No] Was smoking cessation discussed for >3mins.? @ -[No] Was critical care preformed (if so, how long)? @ -[No] Were there social determinants of health that impacted care today? How? (Homeles sness, low income, unemployed, alcoholism, drug addiction, transportation, low edu. Level, literacy, decrease access to med. care, [place] [facility], rehab)? @ -[No] Was there de-escalation of care discussed even if they declined (Discuss DNR or withdrawal of care, Hospice)? DNR status @ -[No] What co-morbidities impacted this encounter? (DM, HTN, Smoking, COPD, CAD, Cancer, CVA, ARF, Chemo, Hep., AIDS, mental health diagnosis, sleep apnea, morbid obesity)? @ -[None] Was patient admitted / discharged? Hospital course, mention meds given and route, prescriptions, significant lab abnormalities, going to OR and other pertinent info. @ -Discharged. This is a 47-year-old female who presents to the emergency department with abdominal pain. Patient had a thorough history and physical exam performed on the ED. Heart rate regular rate and rhythm, lungs are to auscultation bilaterally, abdomen soft and nontender. There are no focal deficits noted on exam. Patient able to ambulate with a steady gait. Patient had imaging performed which was essentially unremarkable. SHe was given Tylenol, Toradol, Pepcid, 1 L IV fluids with medical relief. I discussed the results in detail with the patient verbalized understanding and all questions were addressed. Patient will be discharged in stable condition. He is discussed with Dr. Forde [facility] who agrees with plan of care Undiagnosed new problem with uncertain prognosis? @ -[No] Drug Therapy requiring intensive monitoring for toxicity (Heparin, Nitro, Insulin, Cardizem)? @ -[No] Were any procedures done? @ -[No] Diagnosis/symptom? @ -Abdominal pain Acute, or Chronic, or Acute on Chronic? @ -acute Uncomplicated (without systemic symptoms) or Complicated (systemic symptoms)? @ -uncomplicated Side effects of treatment? @ -[No] Exacerbation, Progression, or Severe Exacerbation? @ -[No] Poses a threat to life or bodily function? How? (Chest pain, [place], [place], pneumonia, PE, COPD, DKA, ARF, appy, cholecystitis, CVA, Diverticulitis, Homicidal, Suicidal, threat to staff... and all critical care pts) @ -low likelihood - Lab Data Result diagrams: 02/17/23 19:13 02/17/23 19:13 Lab Results 02/17/23 02/17/23 02/17/23 Range/Units 19:13 19:13 19:39 WBC 11.7 H (3.8-10.6) k/uL RBC 4.76 (3.80-5.40) m/uL Hgb 15.1 (11.4-16.0) gm/dL Hct 44.6 (34.0-46.0) % MCV 93.7 (80.0-100.0) fL MCH 31.7 (25.0-35.0) pg MCHC 33.8 (31.0-37.0) g/dL RDW 12.3 (11.5-15.5) % Plt Count 296 (150-450) k/uL MPV 8.5 Neutrophils % 60 % Lymphocytes % 30 % Monocytes % 6 % Eosinophils % 1 % Basophils % 1 % Neutrophils # 7.0 (1.3-7.7) k/uL Lymphocytes # 3.6 (1.0-4.8) k/uL Monocytes # 0.7 (0-1.0) k/uL Eosinophils # 0.1 (0-0.7) k/uL Basophils # 0.1 (0-0.2) k/uL Sodium 139 (137-145) mmol/L Potassium 3.7 (3.5-5.1) mmol/L Chloride 102 (98-107) mmol/L Carbon Dioxide 26 (22-30) mmol/L Anion Gap 11 mmol/L BUN 11 (7-17) mg/dL Creatinine 0.57 (0.52-1.04) mg/dL Est GFR (CKD-EPI)AfAm >90 (>60 ml/min/1.73 sqM) Est GFR (CKD-EPI)NonAf >90 (>60 ml/min/1.73 sqM) Glucose 91 (74-99) mg/dL Calcium 9.6 (8.4-10.2) mg/dL Total Bilirubin 0.8 (0.2-1.3) mg/dL AST 24 (14-36) U/L ALT 19 (4-34) U/L Alkaline Phosphatase 89 (38-126) U/L Total Protein 7.6 (6.3-8.2) g/dL Albumin 4.8 (3.5-5.0) g/dL Amylase 58 (30-110) U/L Lipase 74 (23-300) U/L Urine Color Light Yellow Urine Appearance Clear (Clear) Urine pH 7.0 (5.0-8.0) Ur Specific [place] 1.007 (1.001-1.035) Urine Protein Negative (Negative) Urine Glucose (UA) Negative (Negative) Urine Ketones Negative (Negative) Urine Blood Negative (Negative) Urine Nitrite Negative (Negative) Urine Bilirubin Negative (Negative) Urine Urobilinogen <2.0 (<2.0) mg/dL Ur Leukocyte Esterase Negative (Negative) Influenza Type A (PCR) (Not Detectd) Influenza Type B (PCR) (Not Detectd) RSV (PCR) (Not Detectd) SARS-CoV-2 (PCR) (Not Detectd) 02/17/23 Range/Units 19:47 WBC (3.8-10.6) k/uL RBC (3.80-5.40) m/uL Hgb (11.4-16.0) gm/dL Hct (34.0-46.0) % MCV (80.0-100.0) fL MCH (25.0-35.0) pg MCHC (31.0-37.0) g/dL RDW (11.5-15.5) % Plt Count (150-450) k/uL MPV Neutrophils % % Lymphocytes % % Monocytes % % Eosinophils % % Basophils % % Neutrophils # (1.3-7.7) k/uL Lymphocytes # (1.0-4.8) k/uL Monocytes # (0-1.0) k/uL Eosinophils # (0-0.7) k/uL Basophils # (0-0.2) k/uL Sodium (137-145) mmol/L Potassium (3.5-5.1) mmol/L Chloride (98-107) mmol/L Carbon Dioxide (22-30) mmol/L Anion Gap mmol/L BUN (7-17) mg/dL Creatinine (0.52-1.04) mg/dL Est GFR (CKD-EPI)AfAm (>60 ml/min/1.73 sqM) Est GFR (CKD-EPI)NonAf (>60 ml/min/1.73 sqM) Glucose (74-99) mg/dL Calcium (8.4-10.2) mg/dL Total Bilirubin (0.2-1.3) mg/dL AST (14-36) U/L ALT (4-34) U/L Alkaline Phosphatase (38-126) U/L Total Protein (6.3-8.2) g/dL Albumin (3.5-5.0) g/dL Amylase (30-110) U/L Lipase (23-300) U/L Urine Color Urine Appearance (Clear) Urine pH (5.0-8.0) Ur Specific [place] (1.001-1.035) Urine Protein (Negative) Urine Glucose (UA) (Negative) Urine Ketones (Negative) Urine Blood (Negative) Urine Nitrite (Negative) Urine Bilirubin (Negative) Urine Urobilinogen (<2.0) mg/dL Ur Leukocyte Esterase (Negative) Influenza Type A (PCR) Not Detected (Not Detectd) Influenza Type B (PCR) Not Detected (Not Detectd) RSV (PCR) Not Detected (Not Detectd) SARS-CoV-2 (PCR) Not Detected (Not Detectd) Disposition Clinical Impression: Abdominal pain Disposition: HOME SELF-CARE Condition: Stable Instructions (If sedation given, give patient instructions): Abdominal Pain (ED) Additional Instructions: These return to the nearest emergency department if symptoms worsen or persist Prescriptions: Metoclopramide [Reglan] 10 mg PO TID PRN #15 tab PRN Reason: Nausea Is patient prescribed a controlled substance at d/c from ED?: No Referrals: Marlon Almanza MD [Primary Care Provider] - 1-2 days Time of Disposition: 20:40
[2023-02-17 19:41] LABS: Basophils # (A) 0.1 k/uL (0-0.2); Basophils % (A) 1 %; Eosinophils # (A) 0.1 k/uL (0-0.7); Eosinophils % (A) 1 %; HCT 44.6 % (34.0-46.0); HGB 15.1 gm/dL (11.4-16.0); Lymphocytes # (A) 3.6 k/uL (1.0-4.8); Lymphocytes % (A) 30 %; MCH 31.7 pg (25.0-35.0); MCHC 33.8 g/dL (31.0-37.0); MCV 93.7 fL (80.0-100.0); Mean Platelet Volume 8.5; Monocytes # (A) 0.7 k/uL (0-1.0); Monocytes % (A) 6 %; Neutrophils % (A) 60 %; Platelet Count 296 k/uL (150-450); RBC 4.76 m/uL (3.80-5.40); RDW 12.3 % (11.5-15.5); WBC 11.7 k/uL (3.8-10.6)
[2023-02-17 19:44] LABS: ALT 19 U/L (4-34); AST 24 U/L (14-36); African American GFR (CKD) >90 (>60 ml/min/1.73 sqM); Albumin 4.8 g/dL (3.5-5.0); Alkaline Phosphatase 89 U/L (38-126); Amylase 58 U/L (30-110); Anion Gap 11 mmol/L; Blood Urea Nitrogen 11 mg/dL (7-17); Calcium 9.6 mg/dL (8.4-10.2); Carbon Dioxide 26 mmol/L (22-30); Chloride 102 mmol/L (98-107); Glucose 91 mg/dL (74-99); Lipase 74 U/L (23-300); Non-African American GFR(CKD) >90 (>60 ml/min/1.73 sqM); Potassium 3.7 mmol/L (3.5-5.1); Sodium 139 mmol/L (137-145); Total Bilirubin 0.8 mg/dL (0.2-1.3); Total Protein 7.6 g/dL (6.3-8.2)
--- NOTE | 2023-02-17 20:26 | US ---
EXAMINATION TYPE: US gallbladder DATE OF EXAM: 02/17/2023 COMPARISON: 03/21/21 CLINICAL INDICATION: Female, 47 years old with history of RUQ abdominal pain; RUQ pain x 3 weeks TECHNIQUE: Multiple sonographic images of the right upper quadrant are obtained. FINDINGS: EXAM MEASUREMENTS: Liver Length: 13.5 cm Gallbladder Wall: 0.24 cm CBD: 0.26 cm Right Kidney: 10.7 x 5.2 x 5.1 cm Pancreas: Parts visualized appear wnl Liver: wnl Gallbladder: wnl Evidence for sonographic Montoya's sign: No CBD: wnl Right Kidney: Dilated renal pelvis. Echogenic focus seen at mid pole measuring 0.6 x 0.8 x 0.5cm IMPRESSION: No evidence for acute cholecystitis. Right renal nonobstructing calculus.
[2023-02-17] MEDS ORDERED: LORazepam 1 MG TAB PO STA (20:32)
[2023-02-17 20:37] LABS: Appearance,Urine Clear (Clear); Bilirubin,Urine Negative (Negative); Blood,Urine Negative (Negative); Color,Urine Light Yellow; Glucose,Urine (UA) Negative (Negative); Ketones,Urine Negative (Negative); Leukocyte Esterase,Urine Negative (Negative); Nitrite,Urine Negative (Negative); Protein,Urine Negative (Negative); Specific Gravity,Urine 1.007 (1.001-1.035); Urobilinogen,Urine <2.0 mg/dL (<2.0)
[2023-02-17] MEDS ORDERED: ONDANSETRON 4 MG ODT STARTER PACK 2 TAB BTL PO STA (20:42)
[2023-02-17 20:59] VITALS: BP 138/93; PULSE 92; TEMP 98.1
== END 2023-02-17 21:03 | disposition home or self-care (01) ==
LOC: EC 18:09
DX: R10.11 Right upper quadrant pain (principal); F41.9 Anxiety disorder, unspecified; F31.9 Bipolar disorder, unspecified; F17.290 Nicotine dependence, other tobacco product, uncomplicated; F12.90 Cannabis use, unspecified, uncomplicated; Z88.8 Allergy status to other drugs, medicaments and biological substances; Z79.899 Other long term (current) drug therapy; Z20.822 Contact with and (suspected) exposure to COVID-19
CPT/HCPCS: 36415; 93005; 80053; 82150; 83690; 85025; 81003; 87636; 76705; 99284; 96374; 96375 ×2; J2405; J1885; S0119

== ENCOUNTER 2023-07-15 13:25 | Emergency (ER) | payer MEDICARE, OTHER ==
[2023-07-15 14:08] VITALS: RESP 18; TEMP 98.9
[2023-07-15] MEDS ORDERED: LORazepam 1 MG TAB PO STA (14:25)
[2023-07-15 14:58] LABS: Appearance,Urine Clear (Clear); Bilirubin,Urine Negative (Negative); Blood,Urine Negative (Negative); Color,Urine Light Yellow; Glucose,Urine (UA) Negative (Negative); Ketones,Urine Negative (Negative); Leukocyte Esterase,Urine Negative (Negative); Nitrite,Urine Negative (Negative); PH, Urine 6.5 (5.0-8.0); Protein,Urine Negative (Negative); Specific Gravity,Urine 1.013 (1.001-1.035); Urobilinogen,Urine <2.0 mg/dL (<2.0)
--- NOTE | 2023-07-15 15:02 | ED ---
Female Urogenital HPI - General Chief complaint: Urogenital Stated complaint: throat pain Time Seen by Provider: 07/15/23 13:38 Source: patient, RN notes reviewed Mode of arrival: ambulatory Limitations: no limitations - History of Present Illness Initial comments: This is a 47-year-old female who presents to the emergency department for concerns of blood in her urine and a sore throat. States that when she went to use the restroom this morning, she felt like there was a lot of blood in her urine. However, she has not had any since then. This was not present when she wiped, she only noticed it in the urine itself. States that this was not coming from the vagina. Denies any back pain, but reports mild abdominal discomfort. She went to urgent care, who tested her urine and told her that was negative, and she was advised to come here for evaluation. States that on the car ride here she noticed that her throat was very sore, and when she looked at it she noticed spots. States that it does hurt to swallow. 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 - Related Data Home Medications Medication Instructions Recorded Confirmed RX: DULoxetine HCL [Cymbalta] 60 mg PO DAILY 01/21/21 08/07/21 RX: Methylphenidate HCl 20 mg PO BID 02/18/21 08/07/21 RX: clonazePAM 2 mg PO TID PRN 02/18/21 08/07/21 RX: Fenofibrate Nanocrystallized 145 mg PO DAILY 03/23/21 08/07/21 [Fenofibrate] RX: Meloxicam 15 mg PO DAILY 03/23/21 08/07/21 RX: tiZANidine HCL 2 mg PO QID PRN 07/22/21 08/07/21 RX: traZODone HCL 150 mg PO HS 07/22/21 08/07/21 Ibuprofen [Motrin] 800 mg PO Q8H PRN 08/07/21 08/07/21 OLANZapine [ZyPREXA] 2.5 mg PO DAILY 08/07/21 08/07/21 estradioL [estradioL (Once Weekly) 1 patch TRANSDERM SA 08/07/21 08/07/21 0.1mg Patch] Previous Rx's Medication Instructions Recorded RX: Aspirin 81 mg PO DAILY #30 chewable 03/24/21 RX: Nitroglycerin Sl Tabs 0.4 mg SUBLINGUAL Q5M PRN #30 tab 03/24/21 [Nitrostat] RX: Amoxic-Pot Clav 875-125Mg 1 tab PO Q12HR #20 tablet 10/31/21 [Augmentin 875-125] Metoclopramide [Reglan] 10 mg PO TID PRN #15 tab 02/17/23 Acet/Diph/Lido/Gjgt-Xci-Wec-Si 5 ml PO Q4-6H PRN #240 ml 07/15/23 [Tyl/Benadryl/Lido/Maalox] RX: Acyclovir [Zovirax] 400 mg PO TID 7 Days #21 tablet 07/15/23 Allergies Allergy/AdvReac Type Severity Reaction Status Date / Time lurasidone [From Latuda] Allergy Rash/Hives Verified 07/15/23 13:38 Review of Systems ROS Statement: Those systems with pertinent positive or pertinent negative responses have been documented in the HPI. ROS Other: All systems not noted in ROS Statement are negative. Past Medical History Past Medical History: No Reported History Additional Past Medical History / Comment(s): Bipolar disorder, anxiety, depression, ADHD History of Any Multi-Drug Resistant Organisms: None Reported Past Surgical History: Section, Hysterectomy Additional Past Surgical History / Comment(s): 2 sections, 5 cysts removed Past Anesthesia/Blood Transfusion Reactions: No Reported Reaction Past Psychological History: ADD/ADHD, Anxiety, Bipolar, Depression Smoking Status: Vaper Past Alcohol Use History: None Reported Past Drug Use History: Marijuana - Past Family History Mother Family Medical History: No Reported History General Exam Limitations: no limitations General appearance: alert, in no apparent distress Head exam: Present: atraumatic, normocephalic, normal inspection ENT exam: Present: other (Posterior pharyngeal erythema with overlying vesicular lesions. No tonsillar hypertrophy or exudates.) Respiratory exam: Present: normal lung sounds bilaterally. Absent: respiratory distress, wheezes, rales, rhonchi, stridor Cardiovascular Exam: Present: regular rate, normal rhythm, normal heart sounds. Absent: systolic murmur, diastolic murmur, rubs, gallop, clicks GI/Abdominal exam: Present: soft, tenderness (Mild lower abdominal), normal bowel sounds. Absent: distended Neurological exam: Present: alert, oriented X3, CN II-XII intact Psychiatric exam: Present: normal affect, normal mood Skin exam: Present: warm, dry, intact, normal color. Absent: rash Course Vital Signs 07/15/23 07/15/23 07/15/23 13:35 14:00 14:30 Temperature 98.9 F Pulse Rate 99 Respiratory 18 Rate Blood Pressure 146/96 133/89 130/88 O2 Sat by Pulse 100 99 99 Oximetry 07/15/23 07/15/23 15:00 15:30 Temperature Pulse Rate 74 Respiratory 18 Rate Blood Pressure 142/99 130/84 O2 Sat by Pulse 98 98 Oximetry Medical Decision Making - Medical Decision Making This is a 47-year-old female who presents to the emergency department for a sore throat and blood in her urine. Was pt. sent in by a medical professional or institution? @ -No Did you speak to anyone other than the patient for history? @ -No Did you review nursing and triage notes? @ -Yes, and I agree, it is accurate with regards to the patient's symptoms. Were old charts reviewed? @ -No Differential Diagnosis? @ -Differential Sore Throat: Strep pharyngitis, herpes zoster, COVID, influenza, GERD, allergic rhinitis, mononucleosis, this is not meant to be an all-inclusive list. EKG interpreted by me (3pts min.)? @ -Not obtained X-rays interpreted by me (1pt min.)? @ -Not obtained CT interpreted by me (1pt min.)? @ -Not obtained U/S interpreted by me (1pt. min.)? @ -Not interpreted by me What testing was considered but not performed? (CT, X-rays, U/S, labs)? Why? @ -None What meds were considered but not given? Why? @ -None Did you discuss the management of the patient with other professionals? @ -No Did you reconcile home meds? @ -No Was smoking cessation discussed for >3mins.? @ -No Was critical care preformed (if so, how long)? @ -No Were there social determinants of health that impacted care today? How? (Homelessness, low income, unemployed, alcoholism, drug addiction, transportation, low edu. Level, literacy, decrease access to med. care, custodial, rehab)? @ -No Was there de-escalation of care discussed even if they declined? (Discuss DNR or withdrawal of care, Hospice)? @ -No What co-morbidities impacted this encounter? (DM, HTN, Smoking, COPD, CAD, Cancer, CVA, Hep., AIDS, mental health diagnosis, sleep apnea, morbid obesity)? @ -None Was patient admitted / discharged? @ -Discharged. Urinalysis negative for signs of infection or blood. US of the kidneys, ureters, and bladder obtained revealing no acute process. Rapid strep test negative. Throat culture ordered with results pending at the time of discharge. Prescription for acyclovir provided for the patient's cold sores. Physical examination of the throat is more so consistent with the herpangina. Advised that the acyclovir most likely will not help those lesions, as it has not necessarily been provided to do so. I did send in a prescription for Magic mouthwash, however I then received a call from [facility] pharmacy that they do not carry viscous lidocaine. The order was canceled. Patient can purchase [id number] analgesics if needed. She was otherwise discharged home in stable condition. Undiagnosed new problem with uncertain prognosis? @ -None Drug Therapy requiring intensive monitoring for toxicity (Heparin, Nitro, Insulin, Cardizem)? @ -None Were any procedures done? @ -None Diagnosis/symptom? @ -Urinary changes, herpangina, oral HSV Acute, or Chronic, or Acute on Chronic? @ -Acute Uncomplicated (without systemic symptoms) or Complicated (systemic symptoms)? @ -Uncomplicated Side effects of treatment? @ -None Exacerbation, Progression, or Severe Exacerbation] @ -Not applicable Poses a threat to life or bodily function? @ -No Return precautions reviewed in depth, the patient is instructed to return to the emergency department with any new, worsening, or concerning symptoms. Patient verbalized understanding. This case was discussed in detail with the attending ED physician, Dr. Cedillo. Presentation, findings, and treatment plan discussed in detail as well. - Lab Data Lab Results 07/15/23 07/15/23 Range/Units 14:12 14:12 Urine Color Light Yellow Urine Appearance Clear (Clear) Urine pH 6.5 (5.0-8.0) Ur Specific [place] 1.013 (1.001-1.035) Urine Protein Negative (Negative) Urine Glucose (UA) Negative (Negative) Urine Ketones Negative (Negative) Urine Blood Negative (Negative) Urine Nitrite Negative (Negative) Urine Bilirubin Negative (Negative) Urine Urobilinogen <2.0 (<2.0) mg/dL Ur Leukocyte Esterase Negative (Negative) Group A Strep (PCR) NOT DETECTED (Not Detectd) - Radiology Data Radiology results: report reviewed, image reviewed Disposition 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 Take the acyclovir as prescribed for 7 days. You can use the Magic mouthwash as 5-10 mL every 4-6 hours as needed for the sore throat. Follow up with your primary care provider in 1-2 days. Prescriptions: Acet/Diph/Lido/Srwf-Fvh-Zpa-Si [Tyl/Benadryl/Lido/Maalox] 5 ml PO Q4-6H PRN #240 ml PRN Reason: Sore Throat RX: Acyclovir [Zovirax] 400 mg PO TID 7 Days #21 tablet Is patient prescribed a controlled substance at d/c from ED?: No Referrals: Marlon Almanza MD [Primary Care Provider] - 1-2 days
--- NOTE | 2023-07-15 15:24 | US ---
EXAMINATION TYPE: US kidneys/renal and bladder DATE OF EXAM: 07/15/2023 COMPARISON: US 2020 CLINICAL INDICATION: Female, 47 years old with history of Hematuria and lower abdominal pain; EXAM MEASUREMENTS: Right Kidney: 10.5 x 4.1 x 4.5 cm Left Kidney: 10.1 x 4.0 x 3.8 cm Right Kidney: No hydronephrosis or masses seen Left Kidney: No hydronephrosis or masses seen Bladder: wnl Bilateral Jets seen: right jet not seen, left jet seen IMPRESSION: 1. Renal ultrasound as visualized appears unremarkable.
[2023-07-15 16:22] VITALS: BP 130/84; PULSE 74
== END 2023-07-15 16:12 | disposition home or self-care (01) ==
LOC: EC 13:25
DX: B00.2 Herpesviral gingivostomatitis and pharyngotonsillitis (principal); N39.9 Disorder of urinary system, unspecified; F90.9 Attention-deficit hyperactivity disorder, unspecified type; F41.9 Anxiety disorder, unspecified; F31.9 Bipolar disorder, unspecified; F17.290 Nicotine dependence, other tobacco product, uncomplicated; F12.90 Cannabis use, unspecified, uncomplicated; Z79.899 Other long term (current) drug therapy; Z88.8 Allergy status to other drugs, medicaments and biological substances
CPT/HCPCS: 76770; 81003; 87070; 87651; 99284

== ENCOUNTER 2025-03-31 12:15 | Emergency (ER) | payer MEDICARE, OTHER ==
[2025-03-31 12:26] VITALS: BP 178/116; PULSE 89; RESP 18; TEMP 97.4
--- NOTE | 2025-03-31 12:38 | ED ---
General Adult HPI - General Chief complaint: Psychiatric Symptoms Stated complaint: Depression Time Seen by Provider: 03/31/25 12:17 Source: patient, EMS Mode of arrival: EMS - History of Present Illness Initial comments: Dictation was produced using [employer] dictation software. please excuse any grammatical, word or spelling errors. Chief Complaint: 49-year-old female with suicidal ideation depression History of Present Illness: Patient is a 49-year-old female with history of bipolar depression. Patient has history of inpatient psychiatric admissions. States that for the last several weeks she has been feeling depressed and suicidal. Patient denies any significant plan. Denies any visual auditory hallucinations. The ROS documented in this emergency department record has been reviewed and confirmed by me. Those systems with pertinent positive or negative responses have been documented in the HPI. All other systems are other negative and/or noncontributory. - Related Data Home Medications Medication Instructions Recorded Confirmed DULoxetine HCL [Cymbalta] 60 mg PO DAILY 01/21/21 08/07/21 Methylphenidate HCl 20 mg PO BID 02/18/21 08/07/21 clonazePAM 2 mg PO TID PRN 02/18/21 08/07/21 Fenofibrate Nanocrystallized 145 mg PO DAILY 03/23/21 08/07/21 [Fenofibrate] Meloxicam 15 mg PO DAILY 03/23/21 08/07/21 tiZANidine HCL 2 mg PO QID PRN 07/22/21 08/07/21 traZODone HCL 150 mg PO HS 07/22/21 08/07/21 Ibuprofen [Motrin] 800 mg PO Q8H PRN 08/07/21 08/07/21 OLANZapine [ZyPREXA] 2.5 mg PO DAILY 08/07/21 08/07/21 estradioL [estradioL (Once Weekly) 1 patch TRANSDERM SA 08/07/21 08/07/21 0.1mg Patch] Previous Rx's Medication Instructions Recorded Aspirin 81 mg PO DAILY #30 chewable 03/24/21 Nitroglycerin Sl Tabs [Nitrostat] 0.4 mg SUBLINGUAL Q5M PRN #30 tab 03/24/21 Amoxic-Pot Clav 875-125Mg 1 tab PO Q12HR #20 tablet 10/31/21 [Augmentin 875-125] Metoclopramide [Reglan] 10 mg PO TID PRN #15 tab 02/17/23 Acet/Diph/Lido/Rrtv-Qjq-Oac-Si 5 ml PO Q4-6H PRN #240 ml 07/15/23 [Tyl/Benadryl/Lido/Maalox] Acyclovir [Zovirax] 400 mg PO TID 7 Days #21 tablet 07/15/23 Allergies Allergy/AdvReac Type Severity Reaction Status Date / Time lurasidone [From Latuda] Allergy Rash/Hives Verified 03/31/25 12:26 Review of Systems ROS Statement: Those systems with pertinent positive or pertinent negative responses have been documented in the HPI. ROS Other: All systems not noted in ROS Statement are negative. Past Medical History Past Medical History: No Reported History Additional Past Medical History / Comment(s): Bipolar disorder, anxiety, depression, ADHD History of Any Multi-Drug Resistant Organisms: None Reported Past Surgical History: Section, Hysterectomy Additional Past Surgical History / Comment(s): 2 sections, 5 cysts removed Past Anesthesia/Blood Transfusion Reactions: No Reported Reaction Past Psychological History: ADD/ADHD, Anxiety, Bipolar, Depression Smoking Status: Vaper Past Alcohol Use History: None Reported Past Drug Use History: Marijuana - Past Family History Mother Family Medical History: No Reported History General Exam - General Exam Comments Initial Comments: General: Well-appearing, nontoxic, no acute distress. Head: Normocephalic, atraumatic Eyes: PERRLA, EOMI ENT: Airway patent Chest: Nonlabored breathing Skin: No visual rash, normal skin tone Neuro: Alert and oriented 3 Musculoskeletal: No gross abnormalities Course Vital Signs 03/31/25 12:18 Temperature 97.4 F L Pulse Rate 89 Respiratory 18 Rate Blood Pressure 178/116 O2 Sat by Pulse 97 Oximetry Medical Decision Making - Medical Decision Making Was pt. sent in by a medical professional or institution (, PA, PUBLISHING DIRECTOR, urgent care, hospital, or skilled nursing...) When possible be specific @ -No Did you speak to anyone other than the patient for history (EMS, parent, family, police, friend...)? What history was obtained from this source @ -No Did you review nursing and triage notes (agree or disagree)? Why? @ -I reviewed and agree with nursing and triage notes Were old charts reviewed (outside hosp., previous admission, EMS record, old EKG, old radiological studies, urgent care reports/EKG's, skilled nursing records)? Report findings @ -No old charts were reviewed Differential Diagnosis (chest pain, altered mental status, abdominal pain women, abdominal pain men, vaginal bleeding, musculoskeletal, weakness, fever, dyspnea, syncope, headache, dizziness, GI bleed, back pain, seizure, CVA, palpatations, mental health)? @ -Differential Mental Health: Depression, anxiety, bipolar, psychosis, schizophrenia, borderline personality, situational depression, adjustment disorder, behavioral disorder, brain tumor, malingering, substance abuse, encephalopathy, medication reaction, dementia, hypothyroidism, degenerative neurologic disorder, lupus.... This is not meant to be all-inclusive list EKG interpreted by me (3pts min.). @ -None done X-rays interpreted by me (1pt min.). @ -None done CT interpreted by me (1pt min.). @ -None done U/S interpreted by me (1pt. min.). @ -None done What testing was considered but not performed or refused? (CT, X-rays, U/S, labs)? Why? @ -None What meds were considered but not given or refused? Why? @ -None Was smoking cessation discussed for >3mins.? @ -No Were there social determinants of health that impacted care today? How? (Homelessness, low income, unemployed, alcoholism, drug addiction, transportation, low edu. Level, literacy, decrease access to med. care, alf, rehab)? @ -No Was there de-escalation of care discussed even if they declined (Discuss DNR or withdrawal of care, Hospice)? DNR status @ -No What co-morbidities impacted this encounter? (DM, HTN, Smoking, COPD, CAD, Cancer, CVA, ARF, Chemo, Hep., AIDS, mental health diagnosis, sleep apnea, morbid obesity)? @ -Bipolar depression Was patient admitted / discharged? Hospital course, mention meds given and route, prescriptions, significant lab abnormalities, going to OR and other pertinent info. @ -49-year-old female presents emergency department for psychiatric evaluation. Vital signs stable. Physical examination is benign. Patient reports suicidality. Patient medically cleared for EPS evaluation Did you discuss the management of the patient with other professionals (professionals i.e. , PA, PUBLISHING DIRECTOR, lab, RT, psych nurse, home health care social worker, cp bleacher operator, teacher, learning and development officer, keycase assembler)? Give summary @ -Case discussed with EPS recommends discharge with safety plan. Was critical care preformed (if so, how long)? @ -No Undiagnosed new problem with uncertain prognosis? @ -No Drug Therapy requiring intensive monitoring for toxicity (Heparin, Nitro, Insulin, Cardizem)? @ -No Were any procedures done? @ -No Diagnosis/symptom? Acute, or Chronic, or Acute on Chronic? Uncomplicated (without systemic symptoms) or Complicated (systemic symptoms)? @ -Depression Side effects of treatment? @ -No Exacerbation, Progression, or Severe Exacerbation? @ -No Poses a threat to life or bodily function? How? (Chest pain, [place], [place], pneumonia, PE, COPD, DKA, ARF, appy, cholecystitis, CVA, Diverticulitis, Homicidal, Suicidal, threat to staff... and all critical care pts) @ -yes Disposition Clinical Impression: Depression Disposition: HOME SELF-CARE Condition: Good Instructions (If sedation given, give patient instructions): Depression (ED) Is patient prescribed a controlled substance at d/c from ED?: No Referrals: Isaiah Shine MD [Primary Care Provider] - 1-2 days Time of Disposition: 16:55
== END 2025-03-31 17:25 | disposition home or self-care (01) ==
LOC: EC 12:15
DX: F32.A Depression, unspecified (principal); F17.290 Nicotine dependence, other tobacco product, uncomplicated; Z88.8 Allergy status to other drugs, medicaments and biological substances
CPT/HCPCS: 82075; 99284